=== PATIENT | male | born 1940 | race Caucasian/White ===

== ENCOUNTER 2023-12-01 12:46 | Inpatient (IN) | payer MEDICARE, SELFPAY ==
[2023-12-01] VITALS (11 sets, daily range): BP systolic 131–203; BP diastolic 62–82; BMI 28.1; BMI 27.5
[2023-12-01 07:21] LABS: % Basophils 0.4 % (0-2); % Eosinophils 2.3 % (0-6); % Immature Granulocytes 0.6 % (0-0.5); % Lymphocytes 13.3 % (20.5-51.1); % Monocytes 1.1 % (1.7-9.3); % Neutrophils 82.3 % (42.2-75.2); Absolute Eosinophils 0.3 10^3/uL (0-0.7); Absolute Immature Granulocytes 0.1 10^3/uL (0-0.05); Absolute Lymphocytes 1.4 10^3/uL (1.2-3.4); Absolute Monocytes 0.1 10^3/uL (0.1-0.6); Absolute Neutrophils 8.9 10^3/uL (1.4-6.5); Hematocrit 45.4 % (39.0-52.0); Hemoglobin 15.1 g/dL (13.0-18.0); Mean Corp Hgb Conc. 33.3 g/dL (33.0-37.0); Mean Corpuscular Hgb 30.9 pg (27.0-31.0); Mean Platelet Volume 11.4 fL (7.4-10.4); Nucleated Red Blood Cells % 0 % (-); Platelet Count 179 10^3/uL (130-400); Red Blood Cell Count 4.88 10^6/uL (4.70-6.10); Red Cell Dist. Width 13.5 % (11.5-14.5); White Blood Cell Count 10.8 10^3/uL (4.8-10.8)
[2023-12-01 07:28] LABS: ALT (SGPT) 71 U/L (0-50); AST (SGOT) 118 U/L (17-59); Albumin 4.7 g/dl (3.5-5.0); Alkaline Phosphatase 91 U/L (38-126); Blood Urea Nitrogen 27 mg/dl (9-20); Calcium 9.1 mg/dl (8.4-10.2); Carbon Dioxide 30 mmol/L (22-30); Chloride 104 mmol/L (98-107); Estimated Creatinine Clearance 53 ml/min; Glucose 133 mg/dl (70-99); Potassium 4.2 mmol/L (3.5-5.1); Sodium 143 mmol/L (135-145); Total Bilirubin 1.7 mg/dl (0.2-1.3); Total Protein 7.9 g/dl (6.3-8.2); eGFR > 60.00
--- NOTE | 2023-12-01 07:56 | ED.GENMED ---
History of Present Illness
General
Chief Complaint: Abdominal Pain
Source: patient
Exam Limitations: none
Time Seen by Provider: 12/01/23 07:03
Nursing documentation reviewed up to this point in time: agreed with
Travel History
Have you had any contact with someone who has COVID-19?: No
Do you have any symptoms of coronavirus? Fever > 100 degrees, chills, cough, shortness of breath, sore throat, loss of taste or smell, muscle aches, or headache?: No
History of Present Illness
History of Present Illness:
83-year-old male past medical history of heart disease GERD diabetes presenting to the emergency department today with concerns of epigastric and upper quadrant Jabari pain over the last few hours. Denies any surgeries to his gallbladder in the
past was given prior to arrival via EMS. Associated nausea no vomiting no change in bowel movements.
Past History
Past History
ED Past Medical History: CAD, GERD, HTN, Hypercholesterolemia, Psychiatric and Other (arely)
ED Past Surgical History: Cardiac (angioplasty) and Tonsilectomy
Social History
Tobacco: Former smoker
Alcohol: None
Drug: None
Personal:
Living: with family
Review of Systems
Review of Systems
Allergies reviewed?: Yes
All Other Systems: ROS reviewed and negative except as documented in HPI and ROS
Phy Exam
Physical Exam
Physical Exam:
GENERAL: Alert , in no apparent distress
EYE: pupils equal and reactive
NECK: Supple, no significant adenopathy.
ENT: o/p clr, mmm.
CARDIAC: Regular rate and rhythm .
LUNGS: Clear breath sounds bilaterally, no acute respiratory distress, no wheezes/rales/rhonchi
ABDOMEN: Right upper quadrant Jabari pain positive Skinner's epigastric pain otherwise soft benign abdomen.
NEUROLOGICAL: Alert and oriented, no focal neuro deficits
SKIN: Warm and dry, skin intact.
MUSCULOSKELETAL: No edema, well perfused.
PSYCH: Normal and appropriate interaction.
Course
Orders/Labs/Results
Orders:
Orders
12/01/23 06:59
ECG [Electrocardiogram (*1)] Urgent
Reason for Study: Chest Pain
EKG- Treatment ONCE
12/01/23 07:05
Complete Blood Count/With Diff Urgent
Comprehensive Metabolic Panel Urgent
Lipase Urgent
12/01/23 07:35
US Abdomen Complete/Upper Urgent
Comment:
Reason For Exam: ruq pain bili up
12/01/23 08:23
0.9% Sodium Chloride 500 ml [Nss] 500 ml IV BOLUS
Morphine Sulfate 4 mg IV NOW STA
12/01/23 09:46
Urinalysis Reflex To Culture Urgent
Date Specimen was Collected: 12/01/23
Time Specimen was Collected: 09:41
Abnormal Lab Results
12/01/23
07:05
MPV 11.4 H fL
(7.4-10.4)
Abs Immat Gran (auto) 0.1 H 10^3/uL
(0-0.05)
Absolute Neuts (auto) 8.9 H 10^3/uL
(1.4-6.5)
Immature Gran % 0.6 H %
(0-0.5)
Neutrophils % 82.3 H %
(42.2-75.2)
Lymphocytes % 13.3 L %
(20.5-51.1)
Monocytes % 1.1 L %
(1.7-9.3)
BUN 27 H mg/dl
(9-20)
Glucose 133 H mg/dl
(70-99)
Total Bilirubin 1.7 H mg/dl
(0.2-1.3)
AST 118 H U/L
(17-59)
ALT 71 H U/L
(0-50)
Lipase > 4000 H* U/L
(23-300)
12/01/23 07:05
12/01/23 07:05
Vital Signs
Initial and Last Documented VS:
Initial Vital Signs
Pulse Resp Pulse Ox
53 18 96
12/01/23 06:58 12/01/23 06:58 12/01/23 06:58
Last Documented Vital Signs
Temp Pulse Resp BP Pulse Ox
98.4 F 63 24 142/62 97
12/01/23 08:33 12/01/23 10:00 12/01/23 10:00 12/01/23 10:00 12/01/23 10:00
MDM/Problems Addressed
MDM/Problems Addressed:
83-year-old male presenting to the emergency department today with concerns of right upper quadrant abdominal pain abruptly starting this morning. Associated nausea no vomiting no chest pain. Significant tense palpation to the right upper quadrant
and epigastric region. Lipase significantly elevated additionally had elevated bilirubin AST and ALT ultrasound showing distention of the gallbladder and dilatation of the common bile duct. Concerning for potential gallstone pancreatitis or distal
biliary duct obstruction plan to admit with expectation for consultation with GI and general surgery.
*Critical Care Note
Total Time (30-74mins, 75-104mins- exclusive of procedures): Not Applicable
ED Attending Note
-
Portions of this chart may have been created with voice recognition software.� Occasional wrong word or��sound alike� substitutions may have occurred due to the inherent limitations of voice recognition software.
Discharge Plan
Departure
Patient Disposition: Admit
Date of Disposition: 12/01/23
Time of Disposition: 10:17
Admit to: Med/Surg
Admit to doctor: Marissa
Presentation/result/management discussed w/ accepting MD/DO: Hospitalist
Patient with high blood pressure during this ER visit?: No
Condition: Good
Covid-19: Not Applicable
Discharge Problem:
Acute pancreatitis, Acute cholecystitis
Prescriptions:
No Action
duloxetine 20 MG capsule,delayed release(DR/EC)
40 mg PO DAILY
metformin 500 MG tablet
500 mg PO BID
felodipine 10 MG tablet extended release 24 hr
10 mg PO DAILY Qty: 1 0RF
atorvastatin [Lipitor] 80 mg Tablet
80 mg PO HS
aspirin 81 mg Tablet,Delayed Release (Dr/Ec)
81 mg PO QPM
docusate sodium 100 MG capsule
300 mg PO DAILY
pantoprazole 40 mg Tablet,Delayed Release (Dr/Ec)
40 mg PO BID Qty: 60 0RF
sennosides [senna] 8.6 mg Tablet
8.6 mg PO DAILY
Theragen Tablet
1 tab PO DAILY
losartan 25 mg Tablet
25 mg PO DAILY
aspirin 81 mg Tablet,Chewable
324 mg PO DAILYPRN PRN (Reason: chest pains)
alum-mag hydroxide-simeth [Mylanta] 200-200-20 mg/5 mL Suspension
5 ml PO DAILYPRN PRN (Reason: gerd)
calcium citrate-vitamin D3 [Citracal-D3 Petites] 200 mg-6.25 mcg (250 unit) Tablet
1 tab PO DAILY
Referrals:
Sen Hines MD [Family Provider] -
Interventions
Interventions:
*Risk Screen - Suicide Last Done: 12/01/23 07:07
*General Assessment Last Done: 12/01/23 07:07
*Neglect/Abuse Screening Last Done: 12/01/23 07:07
*ED COVID-19 Vaccine History Last Done: 12/01/23 07:07
SS-Rrtkkj-Rubenisrmv Assessment Last Done: 12/01/23 07:30
Discharge Date and Time
Print Language: ALBANIAN
[2023-12-01 08:11] LABS: Lipase > 4000 U/L (23-300)
[2023-12-01] MEDS: MORPHINE SULFATE 4 MG IV (08:38)
[2023-12-01] MEDS: NSS 500 IV (08:38)
[2023-12-01 10:12] LABS: Urine Albumin Trace (Neg - Trace); Urine Bilirubin Negative (Negative); Urine Character Clear (Clear); Urine Color Yellow; Urine Glucose Negative (Negative); Urine Ketone Negative (Negative); Urine Leukocyte Negative (Negative); Urine Nitrite Negative (Negative); Urine Occult Blood Negative (Negative); Urine Specific Gravity 1.015 (<1.030); Urine Urobilinogen Negative (Neg - 1+)
--- NOTE | 2023-12-01 14:49 | CON.GS ---
Medical History
-
Chief Complaint: Abdominal pain
History of Present Illness:
Patient is an 83 yo M with a PMH of GERD, HTN, HLD, CAD s/p PCI with angioplasty, NIDDM, and Gilbert's disease who presents with < 24 hours of epigastric and RUQ abdominal pain. Mr. Roberts states that his pain began acutely this morning. He
describes severe epigastric and RUQ abdominal pain. Mild improvement since presentation to the ED with pain medication. No fevers or chills. No nausea or vomiting. Denies any jaundice, pale stools, or tea colored urine. He denies any prior
attacks of either similar pain or postprandial RUQ abdominal discomfort. Family history notable for a brother with pancreatitis.
Past Medical History
Past Medical History: GERD, HTN, Hypercholesterolemia, NIDDM and Other (Gilbert's disease)
Past Surgical History: Cardiac (PCI angioplasty x2)
Social History
Tobacco: Non-Smoker
Alcohol: Occasional (Wine weekly)
Drug: None
Personal:
Living: With Family
Employment: Retired
Family History
Family History: Other (Brother pancreatitis)
Allergies / Home Medications
Allergy/AdvReac Type Severity Reaction Status Date / Time
Penicillins Allergy Rash as a Verified 12/01/23 10:29
child
�Medication �Instructions �Recorded �Confirmed �Type
duloxetine 20 mg capsule,delayed 40 mg PO DAILY Pain 07/29/21 12/01/23 History
release
metformin 500 mg tablet 500 mg PO BID Diabetes 08/02/21 12/01/23 History
aspirin 81 mg tablet,delayed 81 mg PO QPM Blood clot 11/15/22 12/01/23 History
release prevention/tx
atorvastatin 80 mg tablet (Lipitor) 80 mg PO HS High cholesterol 11/15/22 12/01/23 History
docusate sodium 100 mg capsule 300 mg PO DAILY Constipation 11/15/22 12/01/23 History
aluminum-mag hydroxide-simethicone 5 ml PO DAILYPRN PRN gerd 12/01/23 12/01/23 History
200 mg-200 mg-20 mg/5 mL oral susp
aspirin 81 mg chewable tablet 324 mg PO DAILYPRN PRN chest pains 12/01/23 12/01/23 History
calcium citrate 200 mg 1 tab PO DAILY Supplement 12/01/23 12/01/23 History
calcium-vitamin D3 6.25 mcg (250
unit) tablet (Citracal-D3 Petites)
felodipine 10 mg tablet,extended 10 mg PO DAILY Blood Pressure 12/01/23 12/01/23 History
release 24 hr
losartan 25 mg tablet 25 mg PO DAILY Blood Pressure 12/01/23 12/01/23 History
pantoprazole 40 mg tablet,delayed 40 mg PO BID Gastrointestinal Issue 12/01/23 12/01/23 History
release
sennosides 8.6 mg tablet (senna) 8.6 mg PO DAILY Constipation 12/01/23 12/01/23 History
therapeutic multivitamin 1 tab PO DAILY Supplement 12/01/23 12/01/23 History
Review of Systems
-
A 10 point review of systems was completed, and was negative except as per HPI.
Physical Exam
Vital Signs
Temp Pulse Resp BP Pulse Ox
98.4 F 59 22 155/80 95
12/01/23 08:33 12/01/23 14:30 12/01/23 14:30 12/01/23 14:00 12/01/23 14:30
11/30/23 12/01/23 12/02/23
06:59 06:59 06:59
Actual Weight 86.3 kg
Body Mass Index (BMI) 28.1
Lab Results
12/01/23 07:05
12/01/23 07:05
WBC 10.8 10^3/uL (4.8-10.8) 12/01/23 07:05
Hgb 15.1 g/dL (13.0-18.0) 12/01/23 07:05
Hct 45.4 % (39.0-52.0) 12/01/23 07:05
Plt Count 179 10^3/uL (130-400) 12/01/23 07:05
Abs Immat Gran (auto) 0.1 10^3/uL (0-0.05) H 12/01/23 07:05
Neutrophils % 82.3 % (42.2-75.2) H 12/01/23 07:05
Physical Exam
General: Well Developed, Well Nourished and No Apparent Distress
HEENT: Normocephalic and Anicteric
Respiratory: Non Labored Respirations
Cardiac: Regular Rhythm
GI: Soft, Non Distended, Tender (Epigastrium and RUQ) and Other (Nonperitoneal (no rebound or guarding))
Musculoskeletal: No Edema
Skin: Warm and Dry
Neuro: Nonfocal/Grossly Intact
Data Reviewed
-
Ultrasound: Image Personally Visualized and interpreted and Report Reviewed by me
Labs: Labs Reviewed by me
Assessment / Plan
-
Patient is an 83 yo M pancreatitis likely of gallstone in origin
The natural history of hepatobiliary and stone disease was discussed. Anatomy was reviewed. Role of cholecystectomy in preventing future episodes of pancreatitis was discussed; we discussed that this is typically performed during the same
hospitalization once his symptoms/pancreatitis has resolved. Continued pain currently, not ready for operative intervention at this time. GI consult noted. Medical management per GI. All questions answered.
-- Medical management of pancreatitis (limit oral intake, pain medications, IVF)
-- GI consult noted, decision on MRCP and diet
-- Timing of cholecystectomy pending clinical recovery from pancreatitis
-- Will continue to follow
--- NOTE | 2023-12-01 15:46 | CON.GI ---
Addendum entered and electronically signed by Rukhsana Neff MD 12/01/23 17:46:
I saw and examined the patient.
The CHANGE MANAGEMENT EXPERT's note was reviewed and I agree with the note.
Comment: This is a 83-year-old male who presented with acute onset of right upper quadrant pain today morning with diaphoresis, no fever/chills, no nausea or vomiting he does have a prior history of peptic ulcer disease and Snell's esophagus. on
admission ultrasound showed a distended gallbladder with probable cholecystitis and dilated duct with no obvious stone and also had abnormal LFTs with lipase greater than 4000. He also had an MRI last year to follow-up for renal cyst and he was
noted to have pancreatic cyst thought to be related to possible IPMN or pancreatic pseudocyst but he has no prior history of pancreatitis and no prior history of biliary colic.
Assessment and plan 1. Acute pancreatitis first episode most likely gallstone pancreatitis with evidence of dilated CBD noted on ultrasound and abn LFTS, no obvious stones noted but possible acute cholecystitis noted will start on antibiotics for
this. Will schedule for MRI with MRCP and if he does have evidence of CBD stone will need ERCP, timing of cholecystectomy per surgery. TG normal, no new meds.
2. He does have a history of renal cysts and also pancreatic cysts noted on prior MRI in 2022 thought to be related to possible IPMN with no worrisome features will follow-up on repeat MRI. May need EUS based on this.
Original Note:
Consultation
-
Date/Time Consultation Requested: 12/01/23
Date/Time Consultation Performed: 12/01/23 @ 15:45
Requesting Provider: Dr. Ann
Performing Provider: REBEKAH Hay; Dr. Neff
Reason for Consultation: gallstone pancreatitis
Medical History
Chief Complaint / HPI
Chief Complaint: abdominal pain
History of Present Illness:
The pt is an 83 yo male with a PMH significant for significant for CAD With prior angioplasty, GERD, hypertension, DM2, hyperlipidemia, Gilbert's, who presented to the emergency room, with complaints of abdominal pain. We are being asked to
evaluate for gallstone pancreatitis. The patient reports that this morning he woke up with mid epigastric discomfort. He does have a history of a bleeding ulcer and felt this may have been similar to that episode. His did give him Mylanta but
he did not have any improvement in his symptoms. His pain progressively worsened radiating to the right upper quadrant. His notes that he was doubled over due to his pain and also had significant diaphoresis warranting ER evaluation. He notes
he did have a steak the afternoon before this onset otherwise he eats relatively healthy. The patient denies any fevers or chills. He denies any associated nausea or vomiting. He denies any prior episodes of pancreatitis or known gallbladder
disease. He otherwise denies any chest pain, shortness of breath, unintentional weight loss, change in bowel habits, melena, hematochezia, hematemesis, dysphagia, or other pertinent GI complaints. He denies any new medications, recent antibiotics,
or significant alcohol use. He does take Metformin but this is not new. He notes a history of high cholesterol which is well-controlled with statin therapy. He does take aspirin 81 mg daily otherwise denies use of other NSAIDs or blood thinners.
He underwent endoscopy in November 2022 where he was found to have a nonbleeding gastric ulcer. He underwent repeat endoscopy in January which showed resolution. Esophageal biopsies did show Snell's esophagus. Last colonoscopy less than 10 years ago
reportedly was normal. Routine labs on admission showed a total bilirubin 1.7, AST 118, ALT 71, lipase greater than 4000, BUN 27, creatinine 1.1. Abdominal ultrasound imaging showed a distended gallbladder with thickening of the gallbladder to 5.5
mm suggesting possible cholecystitis with no obvious biliary calculi however there is dilation of the common bile duct to 9 mm raising concern for distal biliary obstruction. Other findings as noted below. General surgery was asked to evaluate the
patient as well for possible cholecystectomy.
Past Medical History
Past Medical History: CAD, GERD (Gastric ulcer secondary to NSAIDs ), HTN, Hypercholesterolemia, NIDDM and Other (Gilbert's, pancreatic cyst, Snell's esophagus, CKDIII)
Past Surgical History: Orthopedic (Bilateral hip replacement)
Social History
Tobacco: Former Smoker (quit remotely)
Alcohol: Occasional (1 glass of wine weekly)
Drug: None
Personal:
Living: With Family
Family History
Family History: Reviewed & Not Pertinent
Allergies / Home Medications
Allergy/AdvReac Type Severity Reaction Status Date / Time
Penicillins Allergy Rash as a Verified 12/01/23 10:29
child
�Medication �Instructions �Recorded
duloxetine 20 mg capsule,delayed 40 mg PO DAILY Pain 07/29/21
release
metformin 500 mg tablet 500 mg PO BID Diabetes 08/02/21
aspirin 81 mg tablet,delayed 81 mg PO QPM Blood clot 11/15/22
release prevention/tx
atorvastatin 80 mg tablet (Lipitor) 80 mg PO HS High cholesterol 11/15/22
docusate sodium 100 mg capsule 300 mg PO DAILY Constipation 11/15/22
aluminum-mag hydroxide-simethicone 5 ml PO DAILYPRN PRN gerd 12/01/23
200 mg-200 mg-20 mg/5 mL oral susp
aspirin 81 mg chewable tablet 324 mg PO DAILYPRN PRN chest pains 12/01/23
calcium citrate 200 mg 1 tab PO DAILY Supplement 12/01/23
calcium-vitamin D3 6.25 mcg (250
unit) tablet (Citracal-D3 Petites)
felodipine 10 mg tablet,extended 10 mg PO DAILY Blood Pressure 12/01/23
release 24 hr
losartan 25 mg tablet 25 mg PO DAILY Blood Pressure 12/01/23
pantoprazole 40 mg tablet,delayed 40 mg PO BID Gastrointestinal Issue 12/01/23
release
sennosides 8.6 mg tablet (senna) 8.6 mg PO DAILY Constipation 12/01/23
therapeutic multivitamin 1 tab PO DAILY Supplement 12/01/23
Review of Systems
-
History Source: Patient and Family
Constitutional: Reports Sleep Disturbance and Other (sweats)
EENT: Reports No Symptoms
Respiratory: Reports No Symptoms
Cardiac: Reports No Symptoms
Abdomen/GI: Reports Abdominal Pain
: Reports No Symptoms
Musculoskeletal: Reports No Symptoms
Skin: Reports No Symptoms
Neurological: Reports No Symptoms
Vital Signs
Temp Pulse Resp BP Pulse Ox
99.4 F 59 15 154/76 95
12/01/23 15:08 12/01/23 15:00 12/01/23 14:45 12/01/23 15:00 12/01/23 15:00
Physical Exam
Exam
General: Well Developed, Well Nourished and No Apparent Distress
HEENT: Normocephalic, Anicteric and Atraumatic
Respiratory: Clear
Cardiac: S1/S2 and Regular Rhythm
Breast: N/A
GI: Soft, Normal Bowel Sounds, Tender (diffusely tender with guarding RUQ, RLQ) and Distended (mildly distended)
Rectal: Deferred by Provider
Musculoskeletal: No Edema
Skin: Warm and Dry
Neuro: Awake, Alert and Oriented
Psych: Calm
Results
WBC 10.8 10^3/uL (4.8-10.8) 12/01/23 07:05
Hgb 15.1 g/dL (13.0-18.0) 12/01/23 07:05
Hct 45.4 % (39.0-52.0) 12/01/23 07:05
MCV 93.0 fL (80.0-94.0) 12/01/23 07:05
Plt Count 179 10^3/uL (130-400) 12/01/23 07:05
Absolute Neuts (auto) 8.9 10^3/uL (1.4-6.5) H 12/01/23 07:05
Sodium 143 mmol/L (135-145) 12/01/23 07:05
Potassium 4.2 mmol/L (3.5-5.1) 12/01/23 07:05
Chloride 104 mmol/L (98-107) 12/01/23 07:05
Carbon Dioxide 30 mmol/L (22-30) 12/01/23 07:05
BUN 27 mg/dl (9-20) H 12/01/23 07:05
Creatinine 1.1 mg/dL (0.7-1.3) 12/01/23 07:05
Calcium 9.1 mg/dl (8.4-10.2) 12/01/23 07:05
Total Bilirubin 1.7 mg/dl (0.2-1.3) H 12/01/23 07:05
AST 118 U/L (17-59) H 12/01/23 07:05
ALT 71 U/L (0-50) H 12/01/23 07:05
Alkaline Phosphatase 91 U/L (38-126) 12/01/23 07:05
Lipase > 4000 U/L (23-300) H* 12/01/23 07:05
Diagnostic Image Results:
12/01/23 US abdomen: IMPRESSION:
'1).The gallbladder is distended and despite this distention, there is thickening of the gallbladder wall to 5.5 mm suggesting possible cholecystitis.
No biliary calculi are demonstrated
There is, however, dilatation of the common bile duct to 9 mm raising concern for distal biliary obstruction
The pancreas is not well visualized because of overlying bowel gas.
MR with MRCP may be useful for further evaluation
2). There are right-sided renal cysts measuring up to 6 cm'
Prior GI Procedures:
EGD: 11/17/2022 EGD, Dr. Canada: Z-line irregular, biopsies consistent with Snell's esophagus without dysplasia, nonbleeding gastric ulcer with no stigmata of bleeding with biopsies negative for H. pylori, normal examined duodenum.
01/07/2023 EGD, Dr. Canada: Esophageal mucosal changes secondary to established Snlel's disease, biopsies consistent with Snell's without dysplasia, erythematous mucosa in the antrum, negative biopsies. No present.
Colonoscopy: colonoscopy reportedly normal less than 10 years ago
Assessment / Plan
-
The pt is an 83 yo male with a PMH significant for significant for CAD with prior angioplasty, GERD, hypertension, DM2, hyperlipidemia, Gilbert's, GI bleed with gastric ulcer 2/2 NSAID's, who presented to the emergency room, with complaints of
abdominal pain. We are being asked to evaluate for gallstone pancreatitis. He notes acute onset of abdominal pain this morning, with no prior similar episodes in the past. He was found to have an elevated lipase greater than 4000 with abnormal
LFTs. Ultrasound imaging showing suspected cholecystitis with CBD dilation concerning for possible choledocholithiasis. He denies significant alcohol use, drinking only 1 glass of wine weekly. He denies any new medications. He was made n.p.o.,
admitted for further evaluation for general surgery and GI evaluation. IV fluids were initiated in the emergency room.
Problem list:
-Abdominal pain
-pancreatitis, 1st episode, lipase >4000
-abnormal LFT's
-US imaging showing possibly cholecystitis, CBD dilation
-hx Gilbert's
-hx GERD with PUD
-Snell's esophagus
Other pertinent medical hx:
-HTN
-HLD
-DM2
Recommendations:
-Etiology of abdominal pain secondary to pancreatitis which is suspected to be related to biliary etiology given CBD dilation on ultrasound imaging and concern for cholecystitis.
-Recommend MRI with MRCP for further evaluation. If positive for choledocholithiasis he will need ERCP.
-General surgery is following for eventual cholecystectomy
-Continue IV fluids, currently at 150 mL/hr
-Trend LFT's
-Check triglycerides
-PRN analgesics
-Okay for sips of clears until pain is improving
-He should be n.p.o. after midnight for MRI and possible GI procedures if need ERCP
-Continue PPI daily with history of Snell's esophagus and peptic ulcer disease
-Avoid NSAIDs
-Further recommendations pending above
Data Reviewed
-
Ultrasound: Report Reviewed by me and Discussed with Physician
-
-
Thank you for consultation and allowing me to participate in the patient's care. Please call the chemist instrumentation GI physician during the after hours with any questions or concerns.
[2023-12-01] MEDS: MORPHINE SULFATE 2 MG IV ×2 (15:47→21:08)
[2023-12-01] MEDS: NSS 1000 IV (15:47)
--- NOTE | 2023-12-01 17:10 | W.PN.HOSP.TC ---
Today's Communication/Plan
-
follow labs
MRCP
IVF
Assessment / Plan
Assessment / Plan
Acute gallstone pancreatitis
Lipase >4000
Bili 1.7
AST 118
CAD. s/p PTCA, no stent ( believes in 2019)
pt known to [facility]
GERD stable
HLD
P: IVF
analgesia
GI and Surgical consults
see dictated note
full code
Anticipated Discharge: > 48 hours
Subjective/Interval History
-
Date of Service: December 01, 2023
Sudden onset of abdominal pain this morning shortly after awakening
Objective Data
-
Labs:
Laboratory Results
12/01/23
07:05
WBC 10.8
Hgb 15.1
Hct 45.4
Plt Count 179
Sodium 143
Potassium 4.2
Chloride 104
Carbon Dioxide 30
BUN 27 H
Creatinine 1.1
Glucose 133 H
Calcium 9.1
Total Bilirubin 1.7 H
AST 118 H
ALT 71 H
Alkaline Phosphatase 91
Vital Signs:
Vital Signs
Temp Pulse Resp BP Pulse Ox
100.5 F H 66 16 148/77 94
12/01/23 15:15 12/01/23 15:15 12/01/23 15:15 12/01/23 15:15 12/01/23 15:15
Review of Systems
-
History Source: Patient and Family ( at bedside)
Constitutional: Reports Fever (Tmax 100.5)
Respiratory: Reports No Symptoms
Cardiac: Reports No Symptoms; Denies Chest Pain
Abdomen/GI: Reports Abdominal Pain; Denies Nausea or Vomiting
Genitourinary: Reports No Symptoms; Denies Dysuria
Physical Exam
-
General: Well Developed, Well Nourished and No Apparent Distress
HEENT: Normocephalic, Atraumatic and Moist Mucous Membranes
Respiratory: Clear to Auscultation; Negative Wheezes, Rales or Rhonchi
Cardiac: Regular Rhythm
GI: Soft and Tender; Negative Normal Bowel Sounds (decreased)
Musculoskeletal: No Clubbing, No Cyanosis and No Edema
Neuro: Awake, Alert and Oriented
[2023-12-01 17:19] LABS: Triglycerides 86 mg/dl (10-149)
--- NOTE | 2023-12-01 17:31 | PTCARENOTE ---
Received patient from ED via stretcher. AAOx3, ambulated with assistance to bed. Assessed and oriented to room. Call rashid in close reach.
[2023-12-01 17:51] LABS: Glucose - Point of Care 103 mg/dl (70-99)
[2023-12-01] MEDS: LOVENOX 40 MG SC (17:51)
[2023-12-01] MEDS: PROTONIX IV 40 MG IV ×2 (17:51→21:02)
[2023-12-01] MEDS: NSS (PRESERVATIVE FREE) 10 ML IV (17:55)
[2023-12-01] MEDS: LEVAQUIN 100 IV (18:34)
[2023-12-01] MEDS: FLAGYL 500 MG 100 IV (21:01)
[2023-12-01 23:56] LABS: Glucose - Point of Care 94 mg/dl (70-99)
[2023-12-02] VITALS (8 sets, daily range): BP systolic 136–153; BP diastolic 65–80
[2023-12-02] MEDS: NSS 1000 IV ×4 (00:42→20:13)
[2023-12-02] MEDS: FLAGYL 500 MG 100 IV ×3 (04:14→20:13)
[2023-12-02] MEDS: OCEAN, SALINE MIST 1 SPRAYS NASAL (05:01)
[2023-12-02 06:06] LABS: % Basophils 0.3 % (0-2); % Eosinophils 0.8 % (0-6); % Immature Granulocytes 0.4 % (0-0.5); % Lymphocytes 6.6 % (20.5-51.1); % Neutrophils 82.9 % (42.2-75.2); Absolute Eosinophils 0.1 10^3/uL (0-0.7); Absolute Immature Granulocytes 0.1 10^3/uL (0-0.05); Absolute Lymphocytes 0.8 10^3/uL (1.2-3.4); Absolute Neutrophils 9.5 10^3/uL (1.4-6.5); Hematocrit 35.9 % (39.0-52.0); Hemoglobin 12.3 g/dL (13.0-18.0); Mean Corp Hgb Conc. 34.3 g/dL (33.0-37.0); Mean Corpuscular Hgb 30.8 pg (27.0-31.0); Mean Corpuscular Volume 89.8 fL (80.0-94.0); Mean Platelet Volume 11.2 fL (7.4-10.4); Nucleated Red Blood Cells % 0 % (-); Platelet Count 142 10^3/uL (130-400); Red Cell Dist. Width 13.9 % (11.5-14.5); White Blood Cell Count 11.4 10^3/uL (4.8-10.8)
[2023-12-02 06:25] LABS: Glucose - Point of Care 96 mg/dl (70-99)
[2023-12-02 06:33] LABS: ALT (SGPT) 69 U/L (0-50); AST (SGOT) 69 U/L (17-59); Albumin 3.2 g/dl (3.5-5.0); Alkaline Phosphatase 79 U/L (38-126); Blood Urea Nitrogen 23 mg/dl (9-20); Calcium 7.9 mg/dl (8.4-10.2); Carbon Dioxide 25 mmol/L (22-30); Chloride 107 mmol/L (98-107); Estimated Creatinine Clearance 58 ml/min; Glucose 96 mg/dl (70-99); Potassium 3.8 mmol/L (3.5-5.1); Sodium 139 mmol/L (135-145); Total Bilirubin 2.9 mg/dl (0.2-1.3); Total Protein 5.7 g/dl (6.3-8.2); eGFR > 60.00
[2023-12-02 06:43] LABS: Lipase 1926 U/L (23-300)
[2023-12-02] MEDS: NOVOLOG FLEXPEN-LOW RESISTANCE SC ×3 (07:58→17:50)
[2023-12-02] MEDS: NSS (PRESERVATIVE FREE) 10 ML IV ×2 (08:32→20:13)
[2023-12-02] MEDS: PLENDIL EXTENDED RELEASE 10 MG PO (08:32)
[2023-12-02] MEDS: PROTONIX IV 40 MG IV ×2 (08:32→20:14)
[2023-12-02] MEDS: COZAAR 25 MG PO (08:32)
[2023-12-02 09:34] LABS: Glycohemoglobin (HgbA1c) 6.8 % (4.0-5.6)
--- NOTE | 2023-12-02 09:59 | W.PN.GI.CBS2 ---
Today's Communication / Plan
-
MRI with MRCP today and ERCP if has CBD stone
Assessment / Plan
-
The pt is an 83 yo male with a PMH significant for significant for CAD with prior angioplasty, GERD, hypertension, DM2, hyperlipidemia, Gilbert's, GI bleed with gastric ulcer 2/2 NSAID's, who presented to the emergency room, with complaints of
abdominal pain. We are being asked to evaluate for gallstone pancreatitis. He notes acute onset of abdominal pain this morning, with no prior similar episodes in the past. He was found to have an elevated lipase greater than 4000 with abnormal
LFTs. Ultrasound imaging showing suspected cholecystitis with CBD dilation concerning for possible choledocholithiasis. He denies significant alcohol use, drinking only 1 glass of wine weekly. He denies any new medications. He was made n.p.o.,
admitted for further evaluation for general surgery and GI evaluation. IV fluids were initiated in the emergency room.
Problem list:
-Abdominal pain
-pancreatitis, 1st episode, lipase >4000
-abnormal LFT's
-US imaging showing possibly cholecystitis, CBD dilation
-hx Gilbert's
-hx GERD with PUD
-Snell's esophagus
Other pertinent medical hx:
-HTN
-HLD
-DM2
Recommendations:
-Etiology of abdominal pain secondary to pancreatitis which is suspected to be related to biliary etiology given CBD dilation on ultrasound imaging and concern for cholecystitis.
-Recommend MRI with MRCP for further evaluation having it today. If positive for choledocholithiasis he will need ERCP.
-General surgery is following for eventual cholecystectomy
-Continue IV fluids, currently at 150 mL/hr
-Trend LFT's
-TG normal
-Continue PPI daily with history of Snell's esophagus and peptic ulcer disease
-Avoid NSAIDs
-He does have a history of renal cysts and also pancreatic cysts noted on prior MRI in 2022 thought to be related to possible IPMN with no worrisome features will follow-up on repeat MRI. May need EUS based on this.
-Continue antibiotics for possible acute cholecystitis seen on imaging
Subjective
Subjective
Date of Service: December 02, 2023
Pain is improved, afebrile today, no nausea or vomiting
Objective
Data Reviewed
Laboratory Data:
Laboratory Results
12/02/23 05:41
12/02/23 05:41
Laboratory Results
Total Bilirubin 2.9 mg/dl (0.2-1.3) H D 12/02/23 05:41
AST 69 U/L (17-59) H 12/02/23 05:41
ALT 69 U/L (0-50) H 12/02/23 05:41
Alkaline Phosphatase 79 U/L (38-126) 12/02/23 05:41
Lipase 1926 U/L (23-300) H* 12/02/23 05:41
Vital Signs and I&O:
Vital Signs
Temp Pulse Resp BP Pulse Ox
98.5 F 50 18 150/73 96
12/02/23 07:25 12/02/23 07:25 12/02/23 07:25 12/02/23 07:25 12/02/23 07:25
I&O
12/01/23 12/02/23 12/03/23
06:59 06:59 06:59
Intake Total 120 / 120
Balance 120 / 120
Physical Exam
Physical Exam
Cardiology: Normal Sinus Rhythm
Pulmonary: Clear
GI: Soft, Non Distended, Tender (Mild epigastric and right upper quadrant tenderness) and Normal Bowel Sounds
[2023-12-02 12:56] LABS: Glucose - Point of Care 93 mg/dl (70-99)
--- NOTE | 2023-12-02 15:25 | W.PN.GS2 ---
Today's Communication / Plan
-
Cont medical mgmt pancreatitis
GS following
Assessment / Plan
-
Patient is an 83 yo M pancreatitis likely of gallstone in origin
The natural history of hepatobiliary and stone disease was discussed. Anatomy was reviewed. Role of cholecystectomy in preventing future episodes of pancreatitis was discussed; we discussed that this is typically performed during the same
hospitalization once his symptoms/pancreatitis has resolved.
Continued pain currently, not ready for operative intervention at this time.
Medical management per GI.
US without obvious stones, GBWT 5.5mm, CBD 9mm
MRCP without obvious ductal stones nor cholelithiasis, CBD again appears mildly dilated
Lipase terending down
Bili trending up, reported hx of arely, supported by historical labs
-- Medical management of pancreatitis (limit oral intake, pain medications, IVF)
-- Timing of cholecystectomy pending clinical recovery from pancreatitis
-- Trend labs, LFTs ordered tomorrow for fractionation
-- If Bili continues to rise and has a significant direct component, rec EUS to evaluate the ducts, ampulla, panc head
-- If bili trends down, consider HIDA to confirm cystic duct patency
-- Serial abd exams
-- Will continue to follow
Subjective Data
-
Date of Service: December 02, 2023
100.5F Tmax, abd pain improving, denies n/v
Objective Data
-
Intake and Output
12/01/23 12/02/23 12/03/23
06:59 06:59 06:59
Intake Total 120 / 120
Balance 120 / 120
Intake:
Oral fluids 120 / 120
Other:
Number of approximated MODERATE 1
amounts of urine
Number of approximated LARGE 3
amounts of urine
Vital Signs
Temp Pulse Resp BP Pulse Ox
99.4 F 55 18 150/74 95
12/02/23 15:09 12/02/23 15:09 12/02/23 15:09 12/02/23 15:09 12/02/23 15:09
Lab Results
12/02/23 05:41
12/02/23 05:41
Calcium 7.9 mg/dl (8.4-10.2) L 12/02/23 05:41
Total Bilirubin 2.9 mg/dl (0.2-1.3) H D 12/02/23 05:41
AST 69 U/L (17-59) H 12/02/23 05:41
ALT 69 U/L (0-50) H 12/02/23 05:41
Alkaline Phosphatase 79 U/L (38-126) 12/02/23 05:41
Total Protein 5.7 g/dl (6.3-8.2) L D 12/02/23 05:41
Albumin 3.2 g/dl (3.5-5.0) L D 12/02/23 05:41
Physical Exam
-
Gen: NAD
Abd: soft, moderate ttp to epigastrium
[2023-12-02] MEDS: LEVAQUIN 100 IV (17:41)
[2023-12-02] MEDS: LOVENOX 40 MG SC (17:41)
[2023-12-02 17:44] LABS: Direct Bilirubin 0.5 mg/dl (0.0-0.4)
[2023-12-02 17:45] LABS: Glucose - Point of Care 87 mg/dl (70-99)
--- NOTE | 2023-12-02 17:59 | W.PN.HOSP.TC ---
Today's Communication/Plan
-
continue IVF
trend labs
await decision on timing of surgical intervention
Assessment / Plan
Assessment / Plan
Acute gallstone pancreatitis, improving, possible passage of stone
Lipase >4000-->1926
Bili 1.7-->2.9
AST 118-->69
MRCP: Borderline common bile duct dilatation without evidence for strictures or filling defects.
Hydropic gallbladder with small amount of pericholecystic fluid without discrete gallstones identified. Recommend clinical correlation for possibility of acute cholecystitis. HIDA scan could be considered for further evaluation if there is high
clinical concern.
Redemonstration of scattered pancreatic cystic lesions without suspicious features, slightly increased from prior exam 03/06/2023. Recommend follow-up MRI/MRCP abdomen without and with gadolinium contrast in 2 years per ACR criteria.
Benign appearing renal cysts redemonstrated.
Hx of Gilbert's
total Bili is 2.9 with direct of 0.5 which is consistent with Gilbert's
CAD. s/p PTCA, no stent ( believes in 2019)
pt known to [facility]
GERD stable
HLD
P: IVF
analgesia
GI and Surgical consults appreciated
see dictated note
full code
Anticipated Discharge: > 48 hours
Subjective/Interval History
-
Date of Service: December 02, 2023
Feels much better, abdominal pain significantly decreased
Objective Data
-
Labs:
Laboratory Results
12/02/23
05:41
WBC 11.4 H
Hgb 12.3 L
Hct 35.9 L
Plt Count 142 D
Sodium 139
Potassium 3.8
Chloride 107
Carbon Dioxide 25
BUN 23 H
Creatinine 1.0
Glucose 96
Calcium 7.9 L
Total Bilirubin 2.9 H D
AST 69 H
ALT 69 H
Alkaline Phosphatase 79
Vital Signs:
Vital Signs
Temp Pulse Resp BP Pulse Ox
99.4 F 55 18 150/74 95
12/02/23 15:09 12/02/23 15:09 12/02/23 15:09 12/02/23 15:09 12/02/23 15:09
I&O
12/01/23 12/02/23 12/03/23
06:59 06:59 06:59
Intake Total 120 / 120
Balance 120 / 120
Review of Systems
-
History Source: Patient and Family ( at bedside)
Constitutional: Reports Fever (Tmax 100.5, though afebrile past 24 hrs)
Respiratory: Reports No Symptoms
Cardiac: Reports No Symptoms; Denies Chest Pain
Abdomen/GI: Reports Abdominal Pain; Denies Nausea or Vomiting
Genitourinary: Reports No Symptoms; Denies Dysuria
Physical Exam
-
General: Well Developed, Well Nourished and No Apparent Distress
HEENT: Normocephalic, Atraumatic and Moist Mucous Membranes
Respiratory: Clear to Auscultation; Negative Wheezes, Rales or Rhonchi
Cardiac: Regular Rhythm
GI: Soft and Tender; Negative Normal Bowel Sounds (decreased)
Musculoskeletal: No Clubbing, No Cyanosis and No Edema
Neuro: Awake, Alert and Oriented
[2023-12-03 00:01] LABS: Glucose - Point of Care 91 mg/dl (70-99)
[2023-12-03 03:30] VITALS: BP 159/83
[2023-12-03] MEDS: NSS IV (03:53)
[2023-12-03] MEDS: FLAGYL 500 MG 100 IV ×2 (05:22→12:42)
[2023-12-03] MEDS: NSS 1000 IV ×2 (05:22→18:33)
[2023-12-03 07:07] LABS: Glucose - Point of Care 88 mg/dl (70-99)
[2023-12-03 07:27] LABS: Hematocrit 39.6 % (39.0-52.0); Hemoglobin 13.3 g/dL (13.0-18.0); Mean Corp Hgb Conc. 33.6 g/dL (33.0-37.0); Mean Corpuscular Hgb 31.1 pg (27.0-31.0); Mean Corpuscular Volume 92.5 fL (80.0-94.0); Mean Platelet Volume 11.5 fL (7.4-10.4); Platelet Count 144 10^3/uL (130-400); Red Blood Cell Count 4.28 10^6/uL (4.70-6.10); Red Cell Dist. Width 13.7 % (11.5-14.5); White Blood Cell Count 7.5 10^3/uL (4.8-10.8)
[2023-12-03 07:30] VITALS: BP 147/75
[2023-12-03 08:06] LABS: ALT (SGPT) 54 U/L (0-50); AST (SGOT) 67 U/L (17-59); Albumin 3.4 g/dl (3.5-5.0); Alkaline Phosphatase 95 U/L (38-126); Blood Urea Nitrogen 17 mg/dl (9-20); Calcium 8.5 mg/dl (8.4-10.2); Carbon Dioxide 26 mmol/L (22-30); Chloride 107 mmol/L (98-107); Direct Bilirubin 0.4 mg/dl (0.0-0.4); Estimated Creatinine Clearance 58 ml/min; Glucose 92 mg/dl (70-99); Lipase 1501 U/L (23-300); Sodium 140 mmol/L (135-145); Total Bilirubin 2.8 mg/dl (0.2-1.3); eGFR > 60.00
[2023-12-03 08:07] LABS: Glucose - Point of Care 97 mg/dl (70-99)
[2023-12-03] MEDS: NOVOLOG FLEXPEN-LOW RESISTANCE SC ×2 (08:13→12:39)
[2023-12-03] MEDS: PLENDIL EXTENDED RELEASE 10 MG PO (08:28)
[2023-12-03] MEDS: COZAAR 25 MG PO (08:28)
[2023-12-03] MEDS: PROTONIX IV 40 MG IV ×2 (08:28→21:00)
[2023-12-03] MEDS: NSS (PRESERVATIVE FREE) 10 ML IV ×2 (08:28→21:00)
--- NOTE | 2023-12-03 09:07 | W.PN.GS2 ---
Today's Communication / Plan
-
`
Assessment / Plan
-
Assessment: 83-year-old male admitted with acute pancreatitis; uncertain etiology but possible biliary mediated although there is a pancreatic cyst in the head of the pancreas immediately adjacent to the pancreatic duct and common bile duct
confluence as a potential additional etiology.
Reviewing patient's current radiographic imaging and previous MRIs dating back to 2018 at no point were gallstones ever visualized. His gallbladder appears very similar on current radiographic imaging and prior and on my review I do not see any
strong clinical or radiographic signs of acute cholecystitis.
AFVSS
Presenting symptoms essentially resolved with no significant residual abdominal tenderness
Reviewed with patient potential indications for cholecystectomy if we are to presume that this is biliary mediated however as mentioned above I advised the patient that at no point has any of his imaging appreciated gallstones.
After our discussions patient wishes to defer on cholecystectomy which I am in agreement with, as I cannot definitively tell him that cholecystectomy would eliminate future occurrence of pancreatitis particularly with the presence of a pancreatic
cyst in the head of the pancreas.
Plan: No plans for/definitive indications for cholecystectomy
Clear liquids and advance diet as tolerated to low-fat
Patient can always follow-up with us if desired as an outpatient to further discuss management of his gallbladder
Discussed with hospitalist and GI service
Patient will likely be referred for outpatient endoscopic ultrasound evaluation of pancreatic cyst
Subjective Data
-
Date of Service: December 03, 2023
Patient seen and examined.
Presenting symptoms have resolved. Slight abdominal discomfort just to the right of the epigastrium but his presenting symptoms have resolved
Appetite returning and hungry
+ flatus and bowel movements
Objective Data
-
Intake and Output
12/02/23 12/03/23 12/04/23
06:59 06:59 06:59
Intake Total 120 / 120 2029
Balance 120 / 120 2029
Intake:
Oral fluids 120 / 120 180 / 180
IV fluids (Total) 1650 / 1650
IV piggybacks 200 / 200
Other:
Number of approximated MODERATE 1 6
amounts of urine
Number of approximated LARGE 3
amounts of urine
Vital Signs
Temp Pulse Resp BP Pulse Ox
98.4 F 52 22 147/75 96
12/03/23 07:30 12/03/23 07:30 12/03/23 07:30 12/03/23 07:30 12/03/23 07:30
Lab Results
12/03/23 06:48
12/03/23 06:48
Calcium 8.5 mg/dl (8.4-10.2) 12/03/23 06:48
Total Bilirubin 2.8 mg/dl (0.2-1.3) H 12/03/23 06:48
Direct Bilirubin 0.4 mg/dl (0.0-0.4) 12/03/23 06:48
AST 67 U/L (17-59) H 12/03/23 06:48
ALT 54 U/L (0-50) H 12/03/23 06:48
Alkaline Phosphatase 95 U/L (38-126) 12/03/23 06:48
Total Protein 6.0 g/dl (6.3-8.2) L 12/03/23 06:48
Albumin 3.4 g/dl (3.5-5.0) L 12/03/23 06:48
Physical Exam
-
NAD AAOx3
ABD: Soft, nondistended, slight tenderness on palpation to the right of the epigastrium, no rebound rigidity or guarding
[2023-12-03 11:00] VITALS: BP 131/63
[2023-12-03 11:55] LABS: Glucose - Point of Care 112 mg/dl (70-99)
--- NOTE | 2023-12-03 14:55 | W.PN.HOSP.TC ---
Today's Communication/Plan
-
advance diet
slow IVF
follow labs
Assessment / Plan
Assessment / Plan
Acute gallstone pancreatitis, improving, possible passage of stone
Lipase >4000-->1926-->1501
Bili 1.7-->2.9-->2.8
AST 118-->69-->67
MRCP: Borderline common bile duct dilatation without evidence for strictures or filling defects.
Hydropic gallbladder with small amount of pericholecystic fluid without discrete gallstones identified. Recommend clinical correlation for possibility of acute cholecystitis. HIDA scan could be considered for further evaluation if there is high
clinical concern.
Redemonstration of scattered pancreatic cystic lesions without suspicious features, slightly increased from prior exam 03/06/2023. Recommend follow-up MRI/MRCP abdomen without and with gadolinium contrast in 2 years per ACR criteria.
Benign appearing renal cysts redemonstrated.
Hx of Gilbert's
total Bili is 2.9 with direct of 0.5 which is consistent with Gilbert's
CAD. s/p PTCA, no stent ( believes in 2019)
pt known to [facility]
GERD stable
HLD
P: IVF
analgesia
GI and Surgical consults appreciated
discussed with Dr. Groves, pt will start on diet
see dictated note
full code
Anticipated Discharge: 24 - 48 hours
Subjective/Interval History
-
Date of Service: December 03, 2023
Generally feeling better
Objective Data
-
Labs:
Laboratory Results
12/03/23
06:48
WBC 7.5
Hgb 13.3
Hct 39.6
Plt Count 144
Sodium 140
Potassium 4.0
Chloride 107
Carbon Dioxide 26
BUN 17
Creatinine 1.0
Glucose 92
Calcium 8.5
Total Bilirubin 2.8 H
AST 67 H
ALT 54 H
Alkaline Phosphatase 95
Vital Signs:
Vital Signs
Temp Pulse Resp BP Pulse Ox
98.7 F 60 20 131/63 96
12/03/23 11:00 12/03/23 11:00 12/03/23 11:00 12/03/23 11:00 12/03/23 11:00
I&O
12/02/23 12/03/23 12/04/23
06:59 06:59 06:59
Intake Total 120 / 120 2029
Balance 120 / 120 2029
Review of Systems
-
History Source: Patient and Family ( at bedside)
Constitutional: Reports Fever (Tmax 100.7, though afebrile past 24 hrs)
Respiratory: Reports No Symptoms
Cardiac: Reports No Symptoms; Denies Chest Pain
Abdomen/GI: Reports Abdominal Pain (markedly diminished); Denies Nausea or Vomiting
Genitourinary: Reports No Symptoms; Denies Dysuria
Physical Exam
-
General: Well Developed, Well Nourished and No Apparent Distress
HEENT: Normocephalic, Atraumatic and Moist Mucous Membranes
Respiratory: Clear to Auscultation; Negative Wheezes, Rales or Rhonchi
Cardiac: Regular Rhythm
GI: Soft and Tender; Negative Normal Bowel Sounds (decreased)
Musculoskeletal: No Clubbing, No Cyanosis and No Edema
Neuro: Awake, Alert and Oriented
[2023-12-03 15:10] VITALS: BP 138/69
--- NOTE | 2023-12-03 16:36 | CM ---
I met with Leodan and his today; Leodan is looking forward to going home and has been ambulating in the hallway. They live in an apartment and live 'simple lives'. Leodan's inquired about a tub bench for safety. I provided her with some
examples of tub benches and checked with PT/OT to see if they had any information to provide; therapy has not been ordered by the physician, so they are unable to see patient or recommend equipment.
Leodan and his felt they would be able to purchase a tub bench based on the items we had reviewed.
Plan: Discharge to home with no needs.
PCP: Sen Hines
Pharmacy: [facility]
[2023-12-03 18:12] LABS: Glucose - Point of Care 217 mg/dl (70-99)
[2023-12-03] MEDS: LOVENOX 40 MG SC (18:33)
[2023-12-03] MEDS: NOVOLOG FLEXPEN-LOW RESISTANCE 2 UNITS SC (18:33)
[2023-12-03] MEDS: LEVAQUIN 100 IV (18:33)
--- NOTE | 2023-12-03 19:01 | W.PN.GI.CBS2 ---
Today's Communication / Plan
-
Adv diet in AM and possible DC in AM
EUS as OP
F/U with Dr. Canada
Assessment / Plan
-
The pt is an 83 yo male with a PMH significant for significant for CAD with prior angioplasty, GERD, hypertension, DM2, hyperlipidemia, Gilbert's, GI bleed with gastric ulcer 2/2 NSAID's, who presented to the emergency room, with complaints of
abdominal pain. We are being asked to evaluate for gallstone pancreatitis. He notes acute onset of abdominal pain this morning, with no prior similar episodes in the past. He was found to have an elevated lipase greater than 4000 with abnormal
LFTs. Ultrasound imaging showing suspected cholecystitis with CBD dilation concerning for possible choledocholithiasis. He denies significant alcohol use, drinking only 1 glass of wine weekly. He denies any new medications. He was made n.p.o.,
admitted for further evaluation for general surgery and GI evaluation. IV fluids were initiated in the emergency room.
Problem list:
-Abdominal pain
-pancreatitis, 1st episode, lipase >4000
-abnormal LFT's
-US imaging showing possibly cholecystitis, CBD dilation
-hx Gilbert's
-hx GERD with PUD
-Snell's esophagus
Other pertinent medical hx:
-HTN
-HLD
-DM2
Recommendations:
-Etiology of abdominal pain secondary to pancreatitis which is suspected to be related to biliary etiology given CBD dilation ? passed stone vs from IPMN/pancreatic cyst less likely
-LFTS mildly elevated trending down, also has Gilbert's
-TG normal
-Continue PPI daily with history of Snell's esophagus and peptic ulcer disease
-Avoid NSAIDs
-He does have a history of renal cysts and also pancreatic cysts noted on prior MRI in 2022 thought to be related to possible IPMN with no worrisome features also noted on repeat MRI no PD dilatation. Will need EUS as OP
-Discussed with Dr. Groves doubt acute cholecystitis will DC antibiotics also discussed with Dr. Ann will advance diet to low-fat diet and if tolerates okay to DC tomorrow
-Had 4-5 bowel movements today but he says they are not loose could be antibiotic associated diarrhea will DC antibiotics today and if his diarrhea persists will check for C. difficile
Subjective
Subjective
Date of Service: December 03, 2023
Patient symptoms have markedly improved, he is tolerating full liquids, no further abdominal pain and fever also has resolved, had 4 Bm's
Objective
Data Reviewed
Laboratory Data:
Laboratory Results
12/03/23 06:48
12/03/23 06:48
Laboratory Results
Total Bilirubin 2.8 mg/dl (0.2-1.3) H 12/03/23 06:48
AST 67 U/L (17-59) H 12/03/23 06:48
ALT 54 U/L (0-50) H 12/03/23 06:48
Alkaline Phosphatase 95 U/L (38-126) 12/03/23 06:48
Lipase 1501 U/L (23-300) H* 12/03/23 06:48
Vital Signs and I&O:
Vital Signs
Temp Pulse Resp BP Pulse Ox
98.4 F 57 16 138/69 94
12/03/23 15:10 12/03/23 15:10 12/03/23 15:10 12/03/23 15:10 12/03/23 15:10
I&O
12/02/23 12/03/23 12/04/23
06:59 06:59 06:59
Intake Total 120 / 120 2029 300 / 300
Balance 120 / 120 2029 300 / 300
12/02/23 MRI with MRCP
IMPRESSION:
Borderline common bile duct dilatation without evidence for strictures or filling defects.
Hydropic gallbladder with small amount of pericholecystic fluid without discrete gallstones identified. Recommend clinical correlation for possibility of acute cholecystitis. HIDA scan could be considered for further evaluation if there is high
clinical concern.
Redemonstration of scattered pancreatic cystic lesions without suspicious features, slightly increased from prior exam 03/06/2023. Recommend follow-up MRI/MRCP abdomen without and with gadolinium contrast in 2 years per ACR criteria.
Benign appearing renal cysts redemonstrated.
Physical Exam
Physical Exam
Cardiology: Normal Sinus Rhythm
Pulmonary: Clear
GI: Soft, Non Distended, Tender (mild epigastric tenderness) and Normal Bowel Sounds
[2023-12-03 19:57] VITALS: BP 152/75
[2023-12-03 21:11] LABS: Glucose - Point of Care 128 mg/dl (70-99)
[2023-12-03 23:57] VITALS: BP 168/82
[2023-12-04 03:22] VITALS: BP 152/76
[2023-12-04] MEDS: NSS 1000 IV (05:22)
[2023-12-04 05:30] LABS: % Basophils 0.5 % (0-2); % Eosinophils 3.7 % (0-6); % Immature Granulocytes 0.3 % (0-0.5); % Lymphocytes 15.8 % (20.5-51.1); % Monocytes 12.6 % (1.7-9.3); % Neutrophils 67.1 % (42.2-75.2); Absolute Eosinophils 0.2 10^3/uL (0-0.7); Absolute Monocytes 0.8 10^3/uL (0.1-0.6); Absolute Neutrophils 4.2 10^3/uL (1.4-6.5); Hematocrit 38.9 % (39.0-52.0); Hemoglobin 13.8 g/dL (13.0-18.0); Mean Corp Hgb Conc. 35.5 g/dL (33.0-37.0); Mean Corpuscular Volume 87.4 fL (80.0-94.0); Mean Platelet Volume 11.1 fL (7.4-10.4); Nucleated Red Blood Cells % 0 % (-); Platelet Count 155 10^3/uL (130-400); Red Blood Cell Count 4.45 10^6/uL (4.70-6.10); Red Cell Dist. Width 13.4 % (11.5-14.5); White Blood Cell Count 6.3 10^3/uL (4.8-10.8)
[2023-12-04 06:21] LABS: ALT (SGPT) 56 U/L (0-50); AST (SGOT) 75 U/L (17-59); Albumin 3.7 g/dl (3.5-5.0); Alkaline Phosphatase 105 U/L (38-126); Blood Urea Nitrogen 13 mg/dl (9-20); Calcium 8.7 mg/dl (8.4-10.2); Carbon Dioxide 22 mmol/L (22-30); Chloride 109 mmol/L (98-107); Estimated Creatinine Clearance 72 ml/min; Glucose 116 mg/dl (70-99); Lipase 1285 U/L (23-300); Potassium 3.5 mmol/L (3.5-5.1); Sodium 140 mmol/L (135-145); Total Protein 6.5 g/dl (6.3-8.2); eGFR > 60.00
[2023-12-04 07:13] LABS: Glucose - Point of Care 129 mg/dl (70-99)
[2023-12-04 07:20] VITALS: BP 151/77
--- NOTE | 2023-12-04 08:24 | W.PN.GI.CBS2 ---
Today's Communication / Plan
-
Please see assessment and plan for details.
Assessment / Plan
-
1. Pancreatitis: Unclear etiology, though most likely passed CBD stone, no gallstones noted on ultrasound or MRI, feeling much better, with much improved labs, tolerating diet without difficulty. At this point he is okay to DC from a GI
standpoint. Will arrange follow-up with Dr. Canada in about a month, will consider further surveillance of pancreatic cysts which are minimally larger than March, though no other alarm features. Will sign off for now, please call back with any
further questions.
Subjective
Subjective
Date of Service: December 04, 2023
Patient is feeling very well today, denies any abdominal pain, nausea vomit, tolerating diet without difficulty.
Objective
Data Reviewed
Laboratory Data:
Laboratory Results
12/04/23 05:03
12/04/23 05:03
Laboratory Results
Total Bilirubin 2.0 mg/dl (0.2-1.3) H 12/04/23 05:03
AST 75 U/L (17-59) H 12/04/23 05:03
ALT 56 U/L (0-50) H 12/04/23 05:03
Alkaline Phosphatase 105 U/L (38-126) 12/04/23 05:03
Lipase 1285 U/L (23-300) H* 12/04/23 05:03
Vital Signs and I&O:
Vital Signs
Temp Pulse Resp BP Pulse Ox
98.7 F 52 18 152/76 97
12/04/23 03:22 12/04/23 03:22 12/04/23 03:22 12/04/23 03:22 12/04/23 03:22
I&O
12/03/23 12/04/23 12/05/23
06:59 06:59 06:59
Intake Total 2029 540 / 540
Balance 2029 540 / 540
Physical Exam
Physical Exam
General: NAD
Abdomen: normal bowel sounds, soft, no tenderness, no masses or bruits, no ascites
[2023-12-04] MEDS: NOVOLOG FLEXPEN-LOW RESISTANCE SC (08:37)
[2023-12-04] MEDS: COZAAR 25 MG PO (08:38)
[2023-12-04] MEDS: PLENDIL EXTENDED RELEASE 10 MG PO (08:38)
[2023-12-04] MEDS: PROTONIX IV 40 MG IV ×2 (08:39→20:28)
[2023-12-04] MEDS: NSS (PRESERVATIVE FREE) 10 ML IV ×2 (08:39→20:28)
--- NOTE | 2023-12-04 09:45 | PTCARENOTE ---
Pt was OOB in bathroom washing up. Tele alarming for elevated HR 130s-140s. Rhythm irregular, Pt feels fine no chest pain or SOB, VSS. EKG completed showing MD Francisco made aware, cards consult in place, plan of care ongoing,.
[2023-12-04 11:08] VITALS: BP 119/71
[2023-12-04] MEDS: NSS IV (11:44)
[2023-12-04 11:49] LABS: Glucose - Point of Care 155 mg/dl (70-99)
[2023-12-04] MEDS: NOVOLOG FLEXPEN-LOW RESISTANCE 1 UNITS SC ×2 (11:58→17:02)
--- NOTE | 2023-12-04 13:42 | CON.CAR ---
Addendum entered and electronically signed by Sandeep Reyez MD 12/04/23 16:14:
I saw and examined the patient.
The [employer]itime Pilot's note was reviewed and I agree with the note.
Comment:
GEN: No distress, awake, Ox3
HEENT: supple, anicteric, mmm
LUNGS: CTA, no wheezes/rales
CV: Reg, S1/S2, 1/6 syst LSB, no gallop
ABD: soft, BS+, NT/ND
EXT: No edema
NEURO: Gross non-focal
SKIN: No rash
Plan:
He is well-known to me with past medical history of coronary artery disease, hypertension, hyperlipidemia, diabetes, CKD 2-3 and sinus bradycardia. He presented to [facility] with pancreatitis and was treated conservatively. His lipase
improved significantly and he was getting ready for discharge. Today on day of discharge she was found to have new onset atrial flutter and atrial fibrillation with heart rates in the 100-120 range. The patient did not feel this. He has a chads
vasc score of 5. He spontaneously converted back into sinus rhythm. He has not tolerated beta-blockers in the past because of sinus bradycardia.
We will check an echocardiogram. He remains in sinus rhythm for now. Will stop his aspirin and start Eliquis 5 mg p.o. twice daily.
At this point I will hold off on beta-wyatt therapy with his known sinus bradycardia. Ultimately we may need to consider a pacemaker for him if he has further episodes of atrial fibrillation requiring AV vicki blockers.
His coronary disease has been stable. Continue felodipine and losartan.
His liver function testing continues to improve. I would restart atorvastatin upon discharge 80 mg daily.
Original Note:
Consultation
Consultation Request
Date/Time Consultation Requested: 12/04/2023
Date/Time Consultation Performed: 12/04/2023
Requesting Provider: Dr. Ann
Performing Provider: Dr. Reyez
Reason for Consultation: AFlutter
Medical History
-
History of Present Illness:
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 Pain started shortly after waking up and worsened throughout the morning,
prompting ER evaluation. In ER, he was found to have evidence of gallstone pancreatitis and he was admitted for further workup and evaluation. He improved with conservative management and did not require surgery. His diet has slowly been advanced
and he reports he is feeling better today than he has in a while. Throughout this admission, he has had brief episodes of tachycardia, however today he was noted to go into rapid atrial flutter for approximately 4 hours. He has no known history of
atrial flutter. While in flutter, his heart rates were steadily in the 110s to 120s, although patient was asymptomatic. He denied palpitations, dizziness, chest pain, SOB, or heart racing. He spontaneously converted to SR and remains in SR at this
time on review of telemetry. Given new atrial flutter, cardiology was consulted.
PMH:
CAD
INTERNATIONAL GUEST COORDINATOR of RCA w/ collaterals, 30% LM and 35% prox circ by cath 03/28/2016
HTN
HLD
CKD 3
DM2
h/o orthostasis
Bradycardia
h/o Gilbert's
Past Medical History
Past Medical History: Other (In HPI)
Past Surgical History: Orthopedic (L BK 08/19/2009, R BK 2017)
Social History
Tobacco: Former Smoker
Alcohol: Occasional
Drug: None
Personal:
Living: With Family
Employment: Retired
Family History
Family History: Reviewed & Not Pertinent
Allergies / Home Medications
Allergy/AdvReac Type Severity Reaction Status Date / Time
Penicillins Allergy Rash as a Verified 12/01/23 10:29
child
�Medication �Instructions �Recorded �Confirmed �Type
duloxetine 20 mg capsule,delayed 40 mg PO DAILY Pain 07/29/21 12/01/23 History
release
metformin 500 mg tablet 500 mg PO BID Diabetes 08/02/21 12/01/23 History
aspirin 81 mg tablet,delayed 81 mg PO QPM Blood clot 11/15/22 12/01/23 History
release prevention/tx
atorvastatin 80 mg tablet (Lipitor) 80 mg PO HS High cholesterol 11/15/22 12/01/23 History
docusate sodium 100 mg capsule 300 mg PO DAILY Constipation 11/15/22 12/01/23 History
aluminum-mag hydroxide-simethicone 5 ml PO DAILYPRN PRN gerd 12/01/23 12/01/23 History
200 mg-200 mg-20 mg/5 mL oral susp
aspirin 81 mg chewable tablet 324 mg PO DAILYPRN PRN chest pains 12/01/23 12/01/23 History
calcium citrate 200 mg 1 tab PO DAILY Supplement 12/01/23 12/01/23 History
calcium-vitamin D3 6.25 mcg (250
unit) tablet (Citracal-D3 Petites)
felodipine 10 mg tablet,extended 10 mg PO DAILY Blood Pressure 12/01/23 12/01/23 History
release 24 hr
losartan 25 mg tablet 25 mg PO DAILY Blood Pressure 12/01/23 12/01/23 History
pantoprazole 40 mg tablet,delayed 40 mg PO BID Gastrointestinal Issue 12/01/23 12/01/23 History
release
sennosides 8.6 mg tablet (senna) 8.6 mg PO DAILY Constipation 12/01/23 12/01/23 History
therapeutic multivitamin 1 tab PO DAILY Supplement 12/01/23 12/01/23 History
Review of Systems
-
History Source: Patient and Family ( at bedside)
All other systems: Negative unless noted
Physical Exam
Vital Signs
Temp Pulse Resp BP Pulse Ox
99.3 F 111 18 119/71 94
12/04/23 11:08 12/04/23 11:08 12/04/23 11:08 12/04/23 11:08 12/04/23 11:08
Lab Results
12/04/23 05:03
12/04/23 05:03
Physical Exam
General: Well Developed, Well Nourished and No Apparent Distress
HEENT: Normocephalic, Anicteric and Moist Mucous Membranes
Cardiac: S1/S2 and Regular Rhythm
Musculoskeletal: No Clubbing, No Cyanosis and No Edema
Skin: Warm and Dry
Neuro: AO x 3 and Nonfocal/Grossly Intact
Psych: Calm
Impression / Plan
-
PCP: Dr. Hines
Resource Analyst: Dr. Reyez
Impression:
Presented with abdominal pain
Gallstone pancreatitis - improving
Paroxysmal atrial flutter - newly diagnosed
CAD
INTERNATIONAL GUEST COORDINATOR of RCA w/ collaterals, 30% LM and 35% prox circ by cath 03/28/2016
HTN
HLD
CKD 3
DM2
h/o orthostasis
Bradycardia
h/o Gilbert's
Echo 01/08/2018: EF 60%, mild cLVH, mild MR, mild AR, mild TR, estimated PAP 33-38 mmHg.
Echo 12/04/2023: Study pending
Plan:
-Presented with abdominal pain and found to have acute gallstone pancreatitis. Improved over the past few days and has tolerated advancing his diet.
-Noted to go into rapid atrial flutter in AM 12/03. EKG reviewed and shows atrial flutter which is a new diagnosis. Spontaneously converted to SR after approx 4 hours.
-HRs while in atrial flutter were in the 110s to 120s, however while in SR, he is bradycardic. Previously has not tolerated BB medications due to bradycardia.
-Will hold off on rate control medication for now. Consider OP monitor to assess burden and HR trends
-Discussed anticoagulation and stroke risk with patient and . Will start Eliquis 5mg BID. [id number] score 5 (age 83, HTN, CAD, DM).
-Of note, patient does have history of bleeding ulcer in 2022, however has had no issues recently. Hgb stable. Continue to follow closely.
-Will have case management assess cost.
-K 3.5, will replete. Check mag and TSH
-Echo 01/2018 with preserved EF and mild MR, mild AR. Repeat echo pending.
-Known CAD w/ INTERNATIONAL GUEST COORDINATOR of RCA by cath in 2015. Chest pain free.
-BP stable, continue current meds.
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 Pain started shortly after waking up and worsened throughout the morning,
prompting ER evaluation. In ER, he was found to have evidence of gallstone pancreatitis and he was admitted for further workup and evaluation. He improved with conservative management and did not require surgery. His diet has slowly been advanced
and he reports he is feeling better today than he has in a while. Throughout this admission, he has had brief episodes of tachycardia, however today he was noted to go into rapid atrial flutter for approximately 4 hours. He has no known history of
atrial flutter. While in flutter, his heart rates were steadily in the 110s to 120s, although patient was asymptomatic. He denied palpitations, dizziness, chest pain, SOB, or heart racing. He spontaneously converted to SR and remains in SR at this
time on review of telemetry. Given new atrial flutter, cardiology was consulted.
Data Reviewed
-
EKG: Tracing Personally Visualized and interpreted
Radiology: Report Reviewed by me
Labs: Labs Reviewed by me
Old Records: Reviewed
--- NOTE | 2023-12-04 14:13 | W.PN.HOSP.TC ---
Today's Communication/Plan
-
Cardio eval of change in rhythm
Assessment / Plan
Assessment / Plan
Acute gallstone pancreatitis, improving, possible passage of stone
Lipase >4000-->1926-->1501-->1285
Bili 1.7-->2.9-->2.8-->2.0
AST 118-->69-->67-->75
MRCP: Borderline common bile duct dilatation without evidence for strictures or filling defects.
Hydropic gallbladder with small amount of pericholecystic fluid without discrete gallstones identified. Recommend clinical correlation for possibility of acute cholecystitis. HIDA scan could be considered for further evaluation if there is high
clinical concern.
Redemonstration of scattered pancreatic cystic lesions without suspicious features, slightly increased from prior exam 03/06/2023. Recommend follow-up MRI/MRCP abdomen without and with gadolinium contrast in 2 years per ACR criteria.
Benign appearing renal cysts redemonstrated.
Hx of Gilbert's
total Bili is 2.9 with direct of 0.5 which is consistent with Gilbert's
CAD. s/p PTCA, no stent ( believes in 2019)
pt known to Dereje
Onset of A. Flutter
dc placed on hold. Pt relates that he has felt similar episodes in past (?~1 year), though never investigated
GERD stable
HLD
P: IVF stopped
analgesia stopped
GI and Surgical consults appreciated
discussed with cardio, will start on Eliquis, await further input
reviewed with at bedside
Echo ordered
full code
Anticipated Discharge: 24 - 48 hours
Subjective/Interval History
-
Date of Service: December 04, 2023
Abd doing better, tolerating diet
Noted episode of tachycardia today, cardio has been consulted,
Objective Data
-
Labs:
Laboratory Results
12/04/23
05:03
WBC 6.3
Hgb 13.8
Hct 38.9 L
Plt Count 155
Sodium 140
Potassium 3.5
Chloride 109 H
Carbon Dioxide 22
BUN 13
Creatinine 0.8
Glucose 116 H
Calcium 8.7
Total Bilirubin 2.0 H
AST 75 H
ALT 56 H
Alkaline Phosphatase 105
Vital Signs:
Vital Signs
Temp Pulse Resp BP Pulse Ox
99.3 F 111 18 119/71 94
12/04/23 11:08 12/04/23 11:08 12/04/23 11:08 12/04/23 11:08 12/04/23 11:08
I&O
12/03/23 12/04/23 12/05/23
06:59 06:59 06:59
Intake Total 2029 540 / 540
Balance 2029 540 / 540
Review of Systems
-
History Source: Patient and Family ( at bedside)
Constitutional: Reports Fever (Tmax 100.7, though afebrile past 24 hrs)
Respiratory: Reports No Symptoms
Cardiac: Reports No Symptoms; Denies Chest Pain
Abdomen/GI: Reports Abdominal Pain (markedly diminished); Denies Nausea or Vomiting
Genitourinary: Reports No Symptoms; Denies Dysuria
Physical Exam
-
General: Well Developed, Well Nourished and No Apparent Distress
HEENT: Normocephalic, Atraumatic and Moist Mucous Membranes
Respiratory: Clear to Auscultation; Negative Wheezes, Rales or Rhonchi
Cardiac: Regular Rhythm
GI: Soft, Nontender and Normal Bowel Sounds
Musculoskeletal: No Clubbing, No Cyanosis and No Edema
Neuro: Awake, Alert and Oriented
[2023-12-04 14:44] LABS: Magnesium 1.6 mg/dl (1.6-2.3)
[2023-12-04] MEDS: KCL 20 MEQ PO (14:47)
[2023-12-04 15:12] LABS: TSH Reflex To Free T4 1.28 uIU/ml (0.47-4.68)
[2023-12-04 15:56] VITALS: BP 128/67
[2023-12-04 16:46] LABS: Glucose - Point of Care 163 mg/dl (70-99)
[2023-12-04 19:25] VITALS: BP 149/78
[2023-12-04] MEDS: ELIQUIS 5 MG PO (20:27)
[2023-12-04 21:32] LABS: Glucose - Point of Care 183 mg/dl (70-99)
[2023-12-04 23:31] VITALS: BP 160/86
[2023-12-05 03:33] VITALS: BP 158/82
[2023-12-05 07:15] VITALS: BP 150/79
[2023-12-05 07:46] LABS: Glucose - Point of Care 149 mg/dl (70-99)
[2023-12-05 08:22] LABS: ALT (SGPT) 59 U/L (0-50); AST (SGOT) 78 U/L (17-59); Albumin 3.9 g/dl (3.5-5.0); Alkaline Phosphatase 103 U/L (38-126); Blood Urea Nitrogen 20 mg/dl (9-20); Calcium 8.9 mg/dl (8.4-10.2); Carbon Dioxide 22 mmol/L (22-30); Chloride 108 mmol/L (98-107); Estimated Creatinine Clearance 64 ml/min; Glucose 156 mg/dl (70-99); Lipase 1537 U/L (23-300); Potassium 3.9 mmol/L (3.5-5.1); Sodium 140 mmol/L (135-145); Total Bilirubin 1.6 mg/dl (0.2-1.3); Total Protein 6.8 g/dl (6.3-8.2); eGFR > 60.00
[2023-12-05] MEDS: NOVOLOG FLEXPEN-LOW RESISTANCE SC ×2 (09:43→12:56)
[2023-12-05] MEDS: PLENDIL EXTENDED RELEASE 10 MG PO (09:43)
[2023-12-05] MEDS: ELIQUIS 5 MG PO (09:43)
[2023-12-05] MEDS: COZAAR 25 MG PO (09:43)
[2023-12-05] MEDS: FLUSH (NSS) 2 FLUSH IV (09:44)
[2023-12-05] MEDS: NSS (PRESERVATIVE FREE) 10 ML IV (09:44)
[2023-12-05] MEDS: PROTONIX IV 40 MG IV (09:44)
[2023-12-05] MEDS: FLUSH (NSS) 1 FLUSH IV (09:45)
[2023-12-05 11:06] VITALS: BP 148/74
--- NOTE | 2023-12-05 11:17 | W.PN.UPDATE ---
Update Note
Progress Note Update
Echo results reviewed with patient and . EF preserved and mild MR noted, stable compared to prior in 2018. He is doing well on Eliquis and has had no further Afib on tele. OK for discharge at this time. Cardiology follow up arranged.
[2023-12-05 12:43] LABS: Glucose - Point of Care 140 mg/dl (70-99)
--- NOTE | 2023-12-05 13:29 | W.PN.HOSP.TC ---
Today's Communication/Plan
-
dc to home
discussed with pt, , CM, CardioCindi
Assessment / Plan
Assessment / Plan
Acute gallstone pancreatitis, improving, possible passage of stone
Lipase >4000-->1926-->1501-->1285-->1537
Bili 1.7-->2.9-->2.8-->2.0-->1.6
AST 118-->69-->67-->75-->[address] Puente, will need follow up with gastroenterology
MRCP: Borderline common bile duct dilatation without evidence for strictures or filling defects.
Hydropic gallbladder with small amount of pericholecystic fluid without discrete gallstones identified. Recommend clinical correlation for possibility of acute cholecystitis. HIDA scan could be considered for further evaluation if there is high
clinical concern.
Redemonstration of scattered pancreatic cystic lesions without suspicious features, slightly increased from prior exam 03/06/2023. Recommend follow-up MRI/MRCP abdomen without and with gadolinium contrast in 2 years per ACR criteria.
Benign appearing renal cysts redemonstrated.
Hx of Gilbert's
total Bili is 2.9 with direct of 0.5 which is consistent with Gilbert's
CAD. s/p PTCA, no stent ( believes in 2019)
pt known to Dereje, reviewed with him
Onset of A. Flutter
dc placed on hold. Pt relates that he has felt similar episodes in past (?~1 year), though never investigated
GERD stable
HLD
P:dc now
see dictated note
full code
Anticipated Discharge: Today
Subjective/Interval History
-
Date of Service: December 05, 2023
No abdominal pain, tolerating diet. Denies dizziness
Objective Data
-
Labs:
Laboratory Results
12/05/23
07:55
Sodium 140
Potassium 3.9
Chloride 108 H
Carbon Dioxide 22
BUN 20
Creatinine 0.9
Glucose 156 H
Calcium 8.9
Total Bilirubin 1.6 H
AST 78 H
ALT 59 H
Alkaline Phosphatase 103
Vital Signs:
Vital Signs
Temp Pulse Resp BP Pulse Ox
97.8 F 51 18 148/74 97
12/05/23 11:06 12/05/23 11:06 12/05/23 11:06 12/05/23 11:06 12/05/23 11:06
I&O
12/04/23 12/05/23 12/06/23
06:59 06:59 06:59
Intake Total 540 / 540 1200 / 1200
Balance 540 / 540 1200 / 1200
Review of Systems
-
History Source: Patient and Family ( at bedside)
Constitutional: Reports Fever (Tmax 100.7, though afebrile >48 hrs)
Respiratory: Reports No Symptoms
Cardiac: Reports No Symptoms; Denies Chest Pain
Abdomen/GI: Reports Abdominal Pain (markedly diminished); Denies Nausea or Vomiting
Genitourinary: Reports No Symptoms; Denies Dysuria
Physical Exam
-
General: Well Developed, Well Nourished and No Apparent Distress
HEENT: Normocephalic, Atraumatic and Moist Mucous Membranes
Respiratory: Clear to Auscultation; Negative Wheezes, Rales or Rhonchi
Cardiac: Regular Rhythm
GI: Soft, Nontender and Normal Bowel Sounds
Musculoskeletal: No Clubbing, No Cyanosis and No Edema
Neuro: Awake, Alert and Oriented
--- NOTE | 2023-12-05 14:18 | CM ---
entered order for discharge.
Spoke with Danielle she said she will drive hime home today.
IMM reviewed with her . Signed on chart.
Offered Vn she requested [facility] .
PLAN Home with [facility] fax [phone]
[2023-12-05 15:10] VITALS: BP 147/75
--- NOTE | 2023-12-06 07:05 | W.DS.TRANS ---
DC Summary - Pit Inspector
-
Discharge Instructions:
Discharge Diagnosis/Procedures Pancreatitis
Diet Low Fat
Activity No strenuous activity
Driving Restrictions No driving
Bathing Restrictions None
Blood Work CBC, CMP, Lipase in 1 week
Other Services VN
Instructions:
Stand-Alone Forms:
Changes to Home Medications: Yes
Discharge Medications:
DC Medications w/original date entered in [employer]
duloxetine 20 mg capsule,delayed release 40 mg PO DAILY Pain 07/29/21
metformin 500 mg tablet 500 mg PO BID Diabetes 08/02/21
atorvastatin 80 mg tablet (Lipitor) 80 mg PO HS High cholesterol 11/15/22
docusate sodium 100 mg capsule 300 mg PO DAILY Constipation 11/15/22
aluminum-mag hydroxide-simethicone 200 mg-200 mg-20 mg/5 mL oral susp 5 ml PO DAILYPRN PRN gerd 12/01/23
calcium citrate 200 mg calcium-vitamin D3 6.25 mcg (250 unit) tablet (Citracal-D3 Petites) 1 tab PO DAILY Supplement 12/01/23
felodipine 10 mg tablet,extended release 24 hr 10 mg PO DAILY Blood Pressure 12/01/23
losartan 25 mg tablet 25 mg PO DAILY Blood Pressure 12/01/23
pantoprazole 40 mg tablet,delayed release 40 mg PO BID Gastrointestinal Issue 12/01/23
sennosides 8.6 mg tablet (senna) 8.6 mg PO DAILY Constipation 12/01/23
therapeutic multivitamin 1 tab PO DAILY Supplement 12/01/23
apixaban 5 mg tablet (Eliquis) 5 mg PO BID #60 tabs 12/05/23
Home Medication Changes
stop Aspirin and start Eliquis
Pending Results: No
== END 2023-12-05 15:32 | disposition home health service (06) | DRG 439 ==
LOC: 4 EAST ACU 12:46
PROVIDERS: Physician Assistant; Surgery; ADMITTING PHYSICIAN Internal Medicine; CONSULT PHYSICIAN Internal Medicine Gastroenterology; CONSULT PHYSICIAN Surgery; EMERGENCY PHYSICIAN Emergency Medicine; FAMILY PHYSICIAN Family Medicine; OTHER PHYSICIAN Internal Medicine Cardiovascular Disease
DX: K85.10 Biliary acute pancreatitis without necrosis or infection (principal); I48.92 Unspecified atrial flutter; K82.1 Hydrops of gallbladder; K81.0 Acute cholecystitis; K86.2 Cyst of pancreas; K21.9 Gastro-esophageal reflux disease without esophagitis; E78.00 Pure hypercholesterolemia, unspecified; N18.30 Chronic kidney disease, stage 3 unspecified; I12.9 Hypertensive chronic kidney disease with stage 1 through stage 4 chronic kidney disease, or unspecified chronic kidney disease; E11.22 Type 2 diabetes mellitus with diabetic chronic kidney disease; E80.4 Gilbert syndrome; I25.10 Atherosclerotic heart disease of native coronary artery without angina pectoris; K22.70 Barrett's esophagus without dysplasia; N28.1 Cyst of kidney, acquired; K83.8 Other specified diseases of biliary tract; Z96.643 Presence of artificial hip joint, bilateral; Z79.82 Long term (current) use of aspirin; Z79.84 Long term (current) use of oral hypoglycemic drugs; Z87.891 Personal history of nicotine dependence; Z98.61 Coronary angioplasty status; Z88.0 Allergy status to penicillin; Z87.11 Personal history of peptic ulcer disease; Z83.3 Family history of diabetes mellitus
CPT/HCPCS: 74183; 76700; 80053; 81003; 82248; 82962; 83036; 83690; 83735; 84443; 84478; 85025; 85027; 93005; 93306; 96361; 96374; 99285; A9575

== ENCOUNTER → 2024-01-31 08:38 | Outpatient (REF) | payer MEDICARE, SELFPAY | LOC: MRI 08:38 | PROVIDERS: ATTENDING PHYSICIAN Physician Assistant; FAMILY PHYSICIAN Family Medicine | DX: K85.90 Acute pancreatitis without necrosis or infection, unspecified (principal) | CPT/HCPCS: 74183; A9575 ==

== ENCOUNTER 2024-05-24 17:45 | Inpatient (IN) | payer MEDICARE, SELFPAY ==
[2024-05-24] VITALS (15 sets, daily range): BP systolic 157–193; BP diastolic 66–95; BMI 27.2; BMI 27.3
--- NOTE | 2024-05-24 13:45 | ED.GENMED ---
History of Present Illness
<Thais Best PA-C - Last Filed: 05/24/24 17:48>
General
Chief Complaint: Abdominal Symptoms
Source: patient
Exam Limitations: none
Time Seen by Provider: 05/24/24 13:25
Nursing documentation reviewed up to this point in time: agreed with
History of Present Illness
History of Present Illness:
84-year-old male past medical history of CAD, hypertension, hyperlipidemia presents emergency department today with concerns of epigastric pain that started around 11 AM today. Patient reports that he had endoscopy this morning and subsequent
pancreatic biopsy this morning. After the biopsy, he went to [place] and ate breakfast. He notes that after eating the meal, he developed sharp epigastric pain and vomited. Patient states that the vomiting persisted and the pain has not subsided.
He called EMS and was given Zofran Toradol en route, vomiting persists. He compares his pain when he had pancreatitis or any other bleeding ulcer. Patient denies rectal bleeding, denies melena. Patient also notes dizziness and lightheadedness.
States that this was been going on for the past few days leading up to this present illness. He denies fevers or chills. He denies chest pain, upper back pain. He denies shortness of breath. He also notes intermittent diarrhea. He denies recent
antibiotics.
Past History
<Thais Best PA-C - Last Filed: 05/24/24 17:48>
Past History
ED Past Medical History: CAD, GERD, HTN, Hypercholesterolemia, Psychiatric and Other (gilkalyani)
ED Past Surgical History: Cardiac (angioplasty) and Tonsilectomy
Social History
Tobacco: Former smoker
Alcohol: None
Drug: None
Personal:
Living: with family
Review of Systems
<Thais Best PA-C - Last Filed: 05/24/24 17:48>
Review of Systems
All Other Systems: ROS reviewed and negative except as documented in HPI and ROS
Phy Exam
<Thais Best PA-C - Last Filed: 05/24/24 17:48>
Physical Exam
Physical Exam:
General: Patient is well appearing and in no acute distress; non-toxic
Skin: Warm and dry, no rashes or lesions
Head: Normocephalic, atraumatic
Eyes: Sclera non-icteric. EOMs intact.
Cardiac: Regular rate
Peripheral Vascular:
Pulm: Normal respiratory effort
Abdomen: No abdominal tenderness
Musculoskeletal:
Neuro: CN II-XII intact, no focal neurologic deficits.
Psychiatric: Appropriate mood and affect.
Course
<Thais Best PA-C - Last Filed: 05/24/24 17:48>
Orders/Labs/Results
Orders:
Orders
05/24/24 13:30
EKG [Electrocardiogram (*1)] Urgent
Reason for Study: Tachycardia
EKG- Treatment ONCE
05/24/24 13:31
Complete Blood Count/With Diff Urgent
Comprehensive Metabolic Panel Urgent
Lipase Urgent
Comment: ADD ON
05/24/24 13:42
CT Chest/abd/pel W Iv Cont Urgent
Reason For Exam: epigastric pain following endoscopy, order combined
05/24/24 13:51
Morphine Sulfate 4 mg IV NOW STA
Ondansetron Injectable [Zofran] 4 mg IV NOW STA
05/24/24 13:59
Troponin I Urgent
05/24/24 14:28
Electrocardiogram (*1) Urgent
Reason for Study: Bradycardia / Tachycardia
EKG- Treatment ONCE
05/24/24 14:29
EKG [Electrocardiogram (*1)] Urgent
Reason for Study: Tachycardia
05/24/24 15:08
Add On- LAB Urgent
Tests Added?: lipase
05/24/24 16:30
Lactated Ringers [Lr] 500 ml IV 200 mls/hr
05/24/24 17:05
Potassium Chloride 10% Elixir [KCl Elixir] 40 meq PO NOW STA
05/24/24 17:23
Admit/Transfer Patient As Directed
Co-Sign Provider:
Level of Care: Inpatient admission
Assign to:: Telemetry
Physician / Group: kassidy
Diagnosis: pancreatitis
Reason for Telemetry: Arrhythmia
Date to Stop Telemetry: 05/27/24
Time to Stop Telemetry: 11:00
Reason for Hospitalization: pancretitis
Expected length of stay greater than two midnights?: Yes
ELOS- Estimated Length of Stay in days: 3
I certify the patient meets the requirements for IP care: Yes
PRN Pain Medication Management As Directed
May give lesser potent ordered pain med per pt: Yes
preference::
Protocol:: Medication orders for pain may be administered in a
manner that supports deferring to patient preference
when the pt is:
- Requesting an ordered lesser potent pain medication.
Least to most potent pain medications are defined
as: acetaminophen < NSAID < tramadol < opioids
(morphine, oxycodone, hydromorphone).
- Requesting a lesser dose of the same medication IF
ORDERED.
- Requesting a less intrusive route of administration
if both routes are prescribed by the provider (PO <
IV).
05/24/24 17:24
Code Status As Directed
Resuscitation Status: Full Code
05/27/24 11:00
DC Protocol for Telemetry ONCE
Abnormal Lab Results
05/24/24
13:31
RBC 4.27 L 10^6/uL
(4.70-6.10)
MPV 10.7 H fL
(7.4-10.4)
Absolute Neuts (auto) 7.4 H 10^3/uL
(1.4-6.5)
Absolute Monos (auto) 0.7 H 10^3/uL
(0.1-0.6)
Lymphocytes % 17.6 L %
(20.5-51.1)
Potassium 3.2 L mmol/L
(3.5-5.1)
BUN 25 H mg/dl
(9-20)
Glucose 140 H mg/dl
(70-99)
Total Bilirubin 2.8 H mg/dl
(0.2-1.3)
Lipase > 4000 H* U/L
(23-300)
05/24/24 13:31
05/24/24 13:31
Vital Signs
Initial and Last Documented VS:
Initial Vital Signs
Temp Pulse Resp BP Pulse Ox
98.2 F 70 23 173/87 97
05/24/24 13:25 05/24/24 13:25 05/24/24 13:25 05/24/24 13:25 05/24/24 13:25
Last Documented Vital Signs
Temp Pulse Resp BP Pulse Ox
98.2 F 55 20 193/87 94
05/24/24 13:25 05/24/24 17:15 05/24/24 17:15 05/24/24 17:00 05/24/24 17:15
<Wolfgang Simmons MD - Last Filed: 05/24/24 14:04>
Orders/Labs/Results
Orders:
Orders
05/24/24 13:30
EKG [Electrocardiogram (*1)] Urgent
Reason for Study: Tachycardia
EKG- Treatment ONCE
05/24/24 13:31
Complete Blood Count/With Diff Urgent
Comprehensive Metabolic Panel Urgent
Lipase Urgent
Comment: ADD ON
05/24/24 13:42
CT Chest/abd/pel W Iv Cont Urgent
Reason For Exam: epigastric pain following endoscopy, order combined
05/24/24 13:51
Morphine Sulfate 4 mg IV NOW STA
Ondansetron Injectable [Zofran] 4 mg IV NOW STA
05/24/24 13:59
Troponin I Urgent
05/24/24 14:28
Electrocardiogram (*1) Urgent
Reason for Study: Bradycardia / Tachycardia
EKG- Treatment ONCE
05/24/24 14:29
EKG [Electrocardiogram (*1)] Urgent
Reason for Study: Tachycardia
05/24/24 15:08
Add On- LAB Urgent
Tests Added?: lipase
05/24/24 16:30
Lactated Ringers [Lr] 500 ml IV 200 mls/hr
05/24/24 17:05
Potassium Chloride 10% Elixir [KCl Elixir] 40 meq PO NOW STA
05/24/24 17:23
Admit/Transfer Patient As Directed
Co-Sign Provider:
Level of Care: Inpatient admission
Assign to:: Telemetry
Physician / Group: kassidy
Diagnosis: pancreatitis
Reason for Telemetry: Arrhythmia
Date to Stop Telemetry: 05/27/24
Time to Stop Telemetry: 11:00
Reason for Hospitalization: pancretitis
Expected length of stay greater than two midnights?: Yes
ELOS- Estimated Length of Stay in days: 3
I certify the patient meets the requirements for IP care: Yes
PRN Pain Medication Management As Directed
May give lesser potent ordered pain med per pt: Yes
preference::
Protocol:: Medication orders for pain may be administered in a
manner that supports deferring to patient preference
when the pt is:
- Requesting an ordered lesser potent pain medication.
Least to most potent pain medications are defined
as: acetaminophen < NSAID < tramadol < opioids
(morphine, oxycodone, hydromorphone).
- Requesting a lesser dose of the same medication IF
ORDERED.
- Requesting a less intrusive route of administration
if both routes are prescribed by the provider (PO <
IV).
05/24/24 17:24
Code Status As Directed
Resuscitation Status: Full Code
05/27/24 11:00
DC Protocol for Telemetry ONCE
Abnormal Lab Results
05/24/24
13:31
RBC 4.27 L 10^6/uL
(4.70-6.10)
MPV 10.7 H fL
(7.4-10.4)
Absolute Neuts (auto) 7.4 H 10^3/uL
(1.4-6.5)
Absolute Monos (auto) 0.7 H 10^3/uL
(0.1-0.6)
Lymphocytes % 17.6 L %
(20.5-51.1)
Potassium 3.2 L mmol/L
(3.5-5.1)
BUN 25 H mg/dl
(9-20)
Glucose 140 H mg/dl
(70-99)
Total Bilirubin 2.8 H mg/dl
(0.2-1.3)
Lipase > 4000 H* U/L
(23-300)
05/24/24 13:31
05/24/24 13:31
Vital Signs
Initial and Last Documented VS:
Initial Vital Signs
Temp Pulse Resp BP Pulse Ox
98.2 F 70 23 173/87 97
05/24/24 13:25 05/24/24 13:25 05/24/24 13:25 05/24/24 13:25 05/24/24 13:25
Last Documented Vital Signs
Temp Pulse Resp BP Pulse Ox
98.2 F 55 20 193/87 94
05/24/24 13:25 05/24/24 17:15 05/24/24 17:15 05/24/24 17:00 05/24/24 17:15
<ELBA Crump Last Filed: 05/24/24 17:48>
MDM/Problems Addressed
Differential Diagnosis Includes:
ddx include esophageal perforation, esophagitis, pancreatitis, gastritis, duodenal ulcer, ACS
MDM/Problems Addressed:
84-year-old male past medical history of CAD, hypertension, hyperlipidemia presents emergency department today with concerns of epigastric pain that started around 11 AM today. Patient reports that he had endoscopy this morning and subsequent
pancreatic biopsy this morning. After the biopsy, he went to [place] and ate breakfast. He notes that after eating the meal, he developed sharp epigastric pain and vomited. States this feels similar when he had pancreatitis in the past. On
physical exam, patient is well-appearing, intermittently vomiting. That he is afebrile, he is not hypotensive. CBC unremarkable. CMP shows hypokalemia. Lipase is over 4000, with CT showing evidence of pancreatitis. Will refer patient for
admission.
Chronic conditions affecting care:
GERD, diabetes, CAD, HLP, HTN
<Thais Best PA-C - Last Filed: 05/24/24 17:48>
*Pulse Oximetry
Patient hypoxic: no
*Critical Care Note
Total Time (30-74mins, 75-104mins- exclusive of procedures): Not Applicable
Data Reviewed
Review of Other/Old Records Reveals: Records (Reviewed she had upper endoscopy ultrasound report, fine-needle aspiration performed ) and Discharge Summary (Reviewed discharge summary from 12/06/2023, patient admitted for acute gallstone pancreatitis)
Source: patient and records
<ELBA Crump Last Filed: 05/24/24 17:48>
Patient Management
Escalation/DeEscalation of care consider admission/obs:
Reviewed case with my ER attending
ED Attending Note
<Thais Best PA-C - Last Filed: 05/24/24 17:48>
-
Portions of this chart may have been created with voice recognition software.� Occasional wrong word or��sound alike� substitutions may have occurred due to the inherent limitations of voice recognition software.
<Wolfgang Simmons MD - Last Filed: 05/24/24 14:04>
ED Attending Note
Patient seen and examined by attending physician: Yes
I performed the substantive portion of visit, reviewed & personally made and approve the management plan that is documented in note by myself or MOHINI.: Yes
ED Attending Note:
84-year-old male with a history of pancreatitis. Had a follow-up outpatient endoscopic ultrasound done today. Pancreatic biopsies were done. Fine upon discharge. Went to [employer]. Late into his meal he started developing upper
abdominal pain nausea and vomiting. No radiation no chest pain no shortness of breath no syncope.
On exam patient is nontoxic. He he is clinically stable. Vital signs are stable. Lungs are clear and equal. Heart regular rate and rhythm no murmur. Abdomen is soft. Bowel sounds are present. Mild epigastric and mild right upper quadrant
tenderness. No rebound or guarding no mass or hernia. Extremities are warm and dry. Grossly nonfocal. Perfusing well.
Previous testing reviewed. Large differential including perforation secondary to procedure, pancreatitis, gastritis or ulcer. Workup in progress. CT pending.
Discharge Plan
Departure
Patient Disposition: Admit
Date of Disposition: 05/24/24
Time of Disposition: 16:10
Presentation/result/management discussed w/ accepting MD/DO: Hospitalist
Condition: Fair
Discharge Problem:
Acute pancreatitis
Prescriptions:
No Action
duloxetine 20 MG capsule,delayed release(DR/EC)
40 mg PO DAILY
metformin 500 MG tablet
500 mg PO BID
atorvastatin [Lipitor] 80 mg Tablet
80 mg PO HS
therapeutic multivitamin Tablet
1 tab PO DAILY
losartan 25 mg Tablet
25 mg PO DAILY
pantoprazole 40 mg tablet,delayed release (DR/EC)
40 mg PO BID
felodipine 10 MG tablet extended release 24 hr
5 mg PO DAILY
Xarelto 20 mg Tablet
20 mg PO QPM
Probiotic 3 billion cell Capsule
3,000 mmu cells PO DAILY
ciprofloxacin HCl 250 mg Tablet
250 mg PO BID
Referrals:
Sen Hines MD [Family Provider] -
Discharge Date and Time
Print Language: GEORGIAN
[2024-05-24] MEDS: MORPHINE SULFATE 4 MG IV (13:58)
[2024-05-24] MEDS: ZOFRAN 4 MG IV (13:58)
[2024-05-24 14:01] LABS: % Basophils 0.3 % (0-2); % Eosinophils 2.5 % (0-6); % Immature Granulocytes 0.4 % (0-0.5); % Lymphocytes 17.6 % (20.5-51.1); % Monocytes 6.6 % (1.7-9.3); % Neutrophils 72.6 % (42.2-75.2); Absolute Eosinophils 0.3 10^3/uL (0-0.7); Absolute Lymphocytes 1.8 10^3/uL (1.2-3.4); Absolute Monocytes 0.7 10^3/uL (0.1-0.6); Absolute Neutrophils 7.4 10^3/uL (1.4-6.5); Hematocrit 39.5 % (39.0-52.0); Hemoglobin 13.2 g/dL (13.0-18.0); Mean Corp Hgb Conc. 33.4 g/dL (33.0-37.0); Mean Corpuscular Hgb 30.9 pg (27.0-31.0); Mean Corpuscular Volume 92.5 fL (80.0-94.0); Mean Platelet Volume 10.7 fL (7.4-10.4); Nucleated Red Blood Cells % 0 % (-); Platelet Count 182 10^3/uL (130-400); Red Blood Cell Count 4.27 10^6/uL (4.70-6.10); Red Cell Dist. Width 14.1 % (11.5-14.5); White Blood Cell Count 10.2 10^3/uL (4.8-10.8)
[2024-05-24 14:14] LABS: ALT (SGPT) 36 U/L (0-50); AST (SGOT) 54 U/L (17-59); Albumin 4.4 g/dl (3.5-5.0); Alkaline Phosphatase 76 U/L (38-126); Blood Urea Nitrogen 25 mg/dl (9-20); Calcium 8.5 mg/dl (8.4-10.2); Carbon Dioxide 28 mmol/L (22-30); Chloride 102 mmol/L (98-107); Estimated Creatinine Clearance 50 ml/min; Glucose 140 mg/dl (70-99); Potassium 3.2 mmol/L (3.5-5.1); Sodium 144 mmol/L (135-145); Total Bilirubin 2.8 mg/dl (0.2-1.3); Total Protein 7.1 g/dl (6.3-8.2); eGFR > 60.00
[2024-05-24 14:42] LABS: Troponin I < 0.012 ng/ml
[2024-05-24 16:27] LABS: Lipase > 4000 U/L (23-300)
[2024-05-24] MEDS: LR 500 IV (16:35)
--- NOTE | 2024-05-24 17:00 | HPS.HSE ---
Family Physician
-
Family Physician: Sen Hines
Chief Complaint
-
epgistric pain
History of Present Illness
84-year-old male past medical history of CAD, hypertension, hyperlipidemia presents emergency department today with concerns of epigastric pain that started around 11 AM today. Patient reports that he had endoscopy this morning and subsequent
pancreatic biopsy this morning since he had the pancreatitis in December. After the biopsy, he went to [place] and ate breakfast. He notes that after eating the meal, he developed sharp epigastric pain and multiple episode of vomiting. Patient
denies rectal bleeding, denies melena. Patient also notes dizziness and lightheadedness. He denies fevers or chills. He denies chest pain, upper back pain. He denies shortness of breath. He also notes intermittent diarrhea. He denies recent
antibiotics.
Ct with pancreatitis. Patient received fluids, morphine, Zofran, potassium in ER.
Admitting for further management
Medical History
Past Medical History
Past Medical History: Reports Other
Additional Past Medical History:
Coronary artery disease
CKD
Hyperlipidemia
Pancreatic cyst
Gilbert's syndrome
Type 2 diabetes
Hypertension
Bundle branch block
Snell's esophagus
Past Surgical History: Reports Other
Additional Past Surgical History:
Right hip replacement
Left knee surgery
Social History
Tobacco: Non-smoker
Alcohol: None
Drug: None
Personal:
Living: With Family
Family History
Family History: Not pertinent
Allergies / Home Medications
Allergies reflects when Allergies were last updated in [facility].
Home Medications with original date entered in [facility]
Allergy/Medication List:
Allergies
Allergy/AdvReac Type Severity Reaction Status Date / Time
Penicillins Allergy Rash as a Verified 05/24/24 07:06
child
Home Medications
duloxetine 20 mg capsule,delayed release 40 mg PO DAILY Pain 07/29/21
metformin 500 mg tablet 500 mg PO BID Diabetes 08/02/21
atorvastatin 80 mg tablet (Lipitor) 80 mg PO HS High cholesterol 11/15/22
felodipine 10 mg tablet,extended release 24 hr 5 mg PO DAILY Blood Pressure 12/01/23
losartan 25 mg tablet 25 mg PO DAILY Blood Pressure 12/01/23
pantoprazole 40 mg tablet,delayed release 40 mg PO BID Gastrointestinal Issue 12/01/23
therapeutic multivitamin 1 tab PO DAILY Supplement 12/01/23
lactobacillus combination no.4 3 billion cell capsule (Probiotic) 3,000 mmu cells PO DAILY 05/24/24
rivaroxaban 20 mg tablet (Xarelto) 20 mg PO QPM 05/24/24
Review of Systems
-
Constitutional: Reports No Symptoms
EENT: Reports No Symptoms
Respiratory: Reports No Symptoms
Cardiac: Reports No Symptoms
Abdomen/GI: Reports Abdominal Pain (Epigastric), Nausea and Vomiting
: Reports No Symptoms
Musculoskeletal: Reports No Symptoms
Skin: Reports No Symptoms
Neurological: Reports No Symptoms
Endocrine: Reports No Symptoms
Hematologic/Lymphatic: Reports No Symptoms
Psych: Reports No Symptoms
Physical Exam
Vital Signs
Vital Signs
Temp Pulse Resp BP Pulse Ox
98.2 F 54 18 173/87 94
05/24/24 13:25 05/24/24 13:35 05/24/24 13:35 05/24/24 13:25 05/24/24 13:35
Physical Exam
General: Well Developed, Well Nourished and No Apparent Distress
HEENT: NormoCephalic, Moist mucous membranes and Atraumatic
Respiratory: Clear
Cardiac: S1/S2 and Regular Rhythm; No Murmur or Rub
GI: Non Distended, Normal Bowel Sounds and Tender; No Organomegaly
Rectal: Deferred by Provider
Musculoskeletal: No Clubbing, No Cyanosis and No Edema
Skin: No Rash
Neuro: AO x 3 and Nonfocal/grossly intact
Laboratory Results
-
05/24/24 13:31
05/24/24 13:31
Laboratory Results
Total Bilirubin 2.8 mg/dl (0.2-1.3) H 05/24/24 13:31
AST 54 U/L (17-59) 05/24/24 13:31
ALT 36 U/L (0-50) 05/24/24 13:31
Alkaline Phosphatase 76 U/L (38-126) 05/24/24 13:31
Troponin I < 0.012 ng/ml 05/24/24 13:59
Lipase Cancelled 05/24/24 15:06
Data Reviewed
-
CT Scan: Report Reviewed by me
Lab Data: Labs Reviewed by me
Impression/Plan
-
# Pancreatitis
-Keep patient n.p.o.
-Lactated Ringer's continued
-Morphine as needed for pain
-GI following patient
-Lipase greater than 4000
-CT abdomen pelvis with impression of There is no evidence of pneumomediastinum There is fluid surrounding the pancreas which suggests pancreatitis. There is thickening along the proximal duodenum. This may be related to recent endoscopy.
-Cipro 250 bid for 3 days s/p ENDO US
# Hypokalemia likely from vomiting
-K3.2
-Supplement with oral KCl monitor BMP
#Hx of Gilbert's
#CAD. s/p PTCA, no stent
#GERD
-PPI continued
#HLD
-Statin
# Anxiety-duloxetine
# Hypertension
-Felodipine, losartan continued
-hydralazine added
# Type 2 diabetes
-Hold metformin
-Sliding scale
#paroxysmal atrial fib
-on Xarelto
-EKG with sinus rhythm with positive AV block with frequent PVCs, incomplete right bundle branch block, nonspecific ST and T wave abnormality, prolonged QT
#DVT prophylaxis
-Xarelto
#CODE status
-full code
[2024-05-24] MEDS: KCL ELIXIR 40 MEQ PO (17:53)
[2024-05-24] MEDS: MORPHINE SULFATE 1 MG IV ×2 (18:01→23:06)
--- NOTE | 2024-05-24 18:04 | W.PN.UPDATE ---
Update Note
Progress Note Update
This is addendum to the H&P written by Le Birch on 05/24/2024. Patient seen and examined independently with TREATER.
84-year-old male past medical history of CAD, hypertension, hyperlipidemia presenting with epigastric pain and vomiting at 11 AM today patient had endoscopic ultrasound with pancreatic biopsy for recent episode of pancreatitis, and another prior
episode of pancreatitis. Pancreatitis was possibly thought secondary to gallstones though no clear etiology was found.
Patient with uncontrolled hypertension with blood pressure up to 183/87.
Labs show hypokalemia. Lipase greater than 4000. Patient with recurrent pancreatitis unclear if related to endoscopic ultrasound with pancreatic biopsy today. N.p.o., IV fluids with lactated Ringer's, Zofran, Dilaudid, as needed hydralazine. GI
consulted.
[2024-05-24] MEDS: LR IV ×2 (19:07→22:14)
--- NOTE | 2024-05-24 20:40 | PTCARENOTE ---
Pt received from ED at 2009. Pt pleasant, AAOX3, and able to ambulate into room. Pt complains of RUQ and middle abdominal pain, no complaints of nausea or vomiting. Pt at bedside, went over pt medications with has she was concerned pt was
getting all his home medications. Pt bed in lowest position and call rashid within reach. Pt educated on importance of call rashid usage, pt relays understanding and cooperation. Will continue with current plan of care.
[2024-05-24] MEDS: PROTONIX 40 MG PO (21:01)
[2024-05-24] MEDS: CIPRO 250 MG PO (21:01)
[2024-05-24] MEDS: XARELTO 20 MG PO (21:01)
[2024-05-24 21:57] LABS: Triglycerides 89 mg/dl (10-149)
[2024-05-24] MEDS: LR 1000 IV (22:57)
[2024-05-25] MEDS: MORPHINE SULFATE 1 MG IV ×2 (02:57→19:50)
[2024-05-25 03:30] VITALS: BP 146/74
[2024-05-25] MEDS: LR 1000 IV ×3 (03:56→14:09)
[2024-05-25] MEDS: MORPHINE SULFATE 2 MG IV (05:53)
[2024-05-25 06:54] LABS: Glucose - Point of Care 85 mg/dl (70-99)
[2024-05-25 07:30] VITALS: BP 148/76
[2024-05-25 07:57] LABS: Hematocrit 33.3 % (39.0-52.0); Hemoglobin 11.3 g/dL (13.0-18.0); Mean Corp Hgb Conc. 33.9 g/dL (33.0-37.0); Mean Corpuscular Hgb 31.7 pg (27.0-31.0); Mean Corpuscular Volume 93.3 fL (80.0-94.0); Mean Platelet Volume 11.3 fL (7.4-10.4); Platelet Count 154 10^3/uL (130-400); Red Blood Cell Count 3.57 10^6/uL (4.70-6.10); Red Cell Dist. Width 14.6 % (11.5-14.5); White Blood Cell Count 9.7 10^3/uL (4.8-10.8)
[2024-05-25] MEDS: PROTONIX 40 MG PO ×2 (08:29→19:43)
[2024-05-25] MEDS: PLENDIL EXTENDED RELEASE 5 MG PO (08:29)
[2024-05-25] MEDS: CYMBALTA DELAYED RELEASE 40 MG PO (08:29)
[2024-05-25] MEDS: CIPRO 250 MG PO ×2 (08:29→19:43)
[2024-05-25] MEDS: VISBIOME 1 CAP PO (08:30)
[2024-05-25] MEDS: COZAAR 25 MG PO (08:48)
--- NOTE | 2024-05-25 09:00 | CON.GI ---
Addendum entered and electronically signed by Pamela Mendiola MD 05/25/24 14:54:
I saw and examined the patient.
The medical housekeeper note was reviewed and I agree with the note.
EUS report reviewed
Pancreatic cyst-s/p EUS FNA 05/[address] Rizvi-complicated by acute pancreatitis
Prior history of idiopathic pancreatitis
Snell's esophagus
plan
N.p.o.
Continue IV fluid LR at 100 cc/ hr
Pain management as per medical team
Follow-up FNA cytology with Dr. Rizvi
Continue Cipro twice daily for 3 days as recommended by Dr. Rizvi
Case discussed with Dr. Rizvi
Original Note:
Consultation
-
Date/Time Consultation Requested: 05/24,20:05
Date/Time Consultation Performed: 05/25,9:00
Requesting Provider: Justen Stark
Performing Provider: Pamela Mendiola
Reason for Consultation: Acute Pancreatitis
Medical History
Chief Complaint / HPI
Chief Complaint: Epigastric pain associated with vomiting for 1 day
History of Present Illness:
Patient is an 84-year-old male with past medical history of coronary artery disease, chronic kidney disease, hyperlipidemia, type 2 diabetes mellitus, essential hypertension, Snell's esophagus, pancreatic cyst, paroxysmal atrial fibrillation and
anxiety. He is compliant with his medications . He had an episode of acute pancreatitis on November 30, 2023 which was managed with conservative measures including fluid resuscitation and pain management. He was discharged after
improvement in 5 days. He underwent endoscopic ultrasound 2 days ago, performed by Dr. Rizvi, to assess the cause of pancreatitis. He was feeling well, he went out to have some breakfast yesterday and he developed signs and symptoms of pancreatitis
again.
He had pain in the epigastric and right upper quadrant region that was sudden in onset, moderate to severe in intensity, sharp, radiating towards the back, progressive and was associated with vomiting. He had 8-10 episodes of vomiting, with food
particles and there was no blood. He was brought into the emergency and his blood pressure at that time was greater than 180. An urgent CT abdomen pelvis, revealed small gallstones and pancreatic inflammation along with peripancreatic fluid. His
WBC count was 9.7, hemoglobin 11.3, hematocrit 33.3, platelets 154. Potassium 3.2, BUN 25, creatinine 1.1, total bilirubin 2.8, AST 54, ALT 36, alkaline phosphatase 76. Lipid panel pending.
His past medical history includes hyperlipidemia for which he takes atorvastatin. He used to drink 1 glass of wine every week which he stopped after the first episode of pancreatitis and he quit smoking 40 years ago. He is obese with a BMI of
27.3.He denies any recent weight loss or newer medications.Appetite and sleep good.
Patient started on the conservative treatment for acute pancreatitis. He is n.p.o. and is on Ringer lactate infusion. His pain is being managed with morphine but patient still complains of 6/10 pain but reports improvement in nausea and vomiting.
Past Medical History
Past Medical History: CAD, GERD, HTN, Hypercholesterolemia, NIDDM and Other (paroxysmal atrial fibrillation,anxeity,CKD,Pancreatic cyst,ed esophagus)
Past Surgical History: Orthopedic (Right hip replacement, Left knee surgery)
Social History
Tobacco: Former Smoker (Quit around 37years of age)
Alcohol: Other (Used to drink one glass of wine a day,quit in )
Drug: None
Personal:
Living: With Family
Family History
Family History: Reviewed & Not Pertinent and CAD
Allergies / Home Medications
Allergy/AdvReac Type Severity Reaction Status Date / Time
Penicillins Allergy Rash as a Verified 05/24/24 07:06
child
�Medication �Instructions �Recorded
duloxetine 20 mg capsule,delayed 40 mg PO DAILY Pain 07/29/21
release
metformin 500 mg tablet 500 mg PO BID Diabetes 08/02/21
atorvastatin 80 mg tablet (Lipitor) 80 mg PO HS High cholesterol 11/15/22
felodipine 10 mg tablet,extended 5 mg PO DAILY Blood Pressure 12/01/23
release 24 hr
losartan 25 mg tablet 25 mg PO DAILY Blood Pressure 12/01/23
pantoprazole 40 mg tablet,delayed 40 mg PO BID Gastrointestinal Issue 12/01/23
release
therapeutic multivitamin 1 tab PO DAILY Supplement 12/01/23
ciprofloxacin HCl 250 mg tablet 250 mg PO BID Infection 05/24/24
lactobacillus combination no.4 3 3,000 mmu cells PO DAILY 05/24/24
billion cell capsule (Probiotic)
rivaroxaban 20 mg tablet (Xarelto) 20 mg PO QPM Blood Clot 05/24/24
Prevention/Tx
Review of Systems
-
All other systems: A 12 pt ROS was Negative except as stated above in HPI
Vital Signs
Temp Pulse Resp BP Pulse Ox
99.2 F 57 20 148/76 94
05/25/24 07:30 05/25/24 08:29 05/25/24 07:30 05/25/24 08:29 05/25/24 07:30
Physical Exam
Exam
General: Well Developed and Pain (6/10 in epigastric and RUQ region)
HEENT: Anicteric
Respiratory: Clear
Cardiac: S1/S2 and Regular Rhythm
GI: Soft, Normal Bowel Sounds and Tender (RUQ and epigastric region)
Genito-urinary: No Costovertebral Tender
Musculoskeletal: No Cyanosis and No Edema
Skin: Warm
Neuro: Awake, Oriented and No Motor Deficits
Hematologic/Lymphatic: No Lymphadenopathy
Psych: Calm
Results
WBC 9.7 10^3/uL (4.8-10.8) 05/25/24 07:33
Hgb 11.3 g/dL (13.0-18.0) L 05/25/24 07:33
Hct 33.3 % (39.0-52.0) L 05/25/24 07:33
MCV 93.3 fL (80.0-94.0) 05/25/24 07:33
Plt Count 154 10^3/uL (130-400) 05/25/24 07:33
Absolute Neuts (auto) 7.4 10^3/uL (1.4-6.5) H 05/24/24 13:31
Sodium 144 mmol/L (135-145) 05/24/24 13:31
Potassium 3.2 mmol/L (3.5-5.1) L 05/24/24 13:31
Chloride 102 mmol/L (98-107) 05/24/24 13:31
Carbon Dioxide 28 mmol/L (22-30) 05/24/24 13:31
BUN 25 mg/dl (9-20) H 05/24/24 13:31
Creatinine 1.1 mg/dL (0.7-1.3) 05/24/24 13:31
Calcium 8.5 mg/dl (8.4-10.2) 05/24/24 13:31
Total Bilirubin 2.8 mg/dl (0.2-1.3) H 05/24/24 13:31
AST 54 U/L (17-59) 05/24/24 13:31
ALT 36 U/L (0-50) 05/24/24 13:31
Alkaline Phosphatase 76 U/L (38-126) 05/24/24 13:31
Lipase Cancelled 05/24/24 15:06
Diagnostic Image Results:
Prior GI Procedures: Endoscopic Ultrasound 05/23/2024
EGD: 2022,Snell esophagus
Colonoscopy:
Assessment / Plan
-
IMPRESSION
Patient is an 84-year-old male with past medical history of coronary artery disease, hyperlipidemia, increased BMI, type 2 diabetes mellitus, essential hypertension, paroxysmal atrial fibrillation, Snell's esophagus, pancreatic cyst, previous
episode of acute pancreatitis on November 30, 2023, who had an endoscopic ultrasound done on May 23, 2024, redeveloped signs and symptoms of acute pancreatitis yesterday 05/24, who was admitted for management of acute pancreatitis on conservative
lines. CT abdomen showed peripancreatic fluid consistent with acute pancreatitis.
ASSESSMENT
1. Recurrent pancreatitis
Pain in the epigastric and right upper quadrant region
Associated nausea and vomiting
History of endoscopic ultrasound on May 23, 2024 for evaluation of acute pancreatitis in Nov, 2023
Lipase 05/24 is greater than 4000
History of hyperlipidemia, use of alcohol beverages, small gallstones on the CT scan, obesity
CT chest/abdomen/pelvis
IMPRESSION:
1. There is no evidence of pneumomediastinum
2. There is fluid surrounding the pancreas which suggests pancreatitis.
3. There is thickening along the proximal duodenum. This may be related to recent endoscopy.
There were also small gallstones observed in the CT
TLC within normal limits
Bilirubin 2.8, liver enzymes within normal limits
BUN 25
Vomiting improved
Patient drank some apple juice in the morning for hypoglycemia
Tender in the epigastric and right upper quadrant
2. Uncontrolled blood pressure
Felodipine 5 mg daily,
losartan 25 mg daily
Hydralazine 10 mg IV 4 hourly as needed
Blood pressure 148 / 76, pulse 57
Continue to monitor and optimize blood pressure
3. Other medical conditions
Hyperlipidemia-continue atorvastatin
Diabetes mellitus-continue insulin on sliding scale
Anxiety-continue duloxetine
Paroxysmal atrial fibrillation-continue Xarelto
GERD-continue omeprazole
PLAN
Continue to manage acute pancreatitis through conservative measures
Keep n.p.o.
Continue IV fluids
Continue morphine for pain
Counseled the patient about diagnosis and probable causes along with prognosis
Follow lipid panel
Follow endoscopic ultrasound report
Encourage to adopt healthy lifestyle and avoid alcoholic beverages
Encouraged weight loss
-
-
Thank you for consultation and allowing me to participate in the patient's care. Please call the communications professor GI physician during the after hours with any questions or concerns.
[2024-05-25 09:53] LABS: HDL Cholesterol 41 mg/dl; LDL Cholesterol, Calculated 50 mg/dl; Total Cholesterol 105 mg/dl (50-199); Triglyceride 73 mg/dl (10-149); Very Low Density Lipoprotein 14 mg/dl (0-30)
[2024-05-25 10:15] LABS: Lipase 2972 U/L (23-300)
[2024-05-25 11:45] VITALS: BMI 27.3
[2024-05-25 11:58] VITALS: BP 124/70
[2024-05-25 12:04] LABS: Glucose - Point of Care 93 mg/dl (70-99)
--- NOTE | 2024-05-25 14:04 | CM ---
Pt seen bedside w/ spouse. Pt lives w/ spouse in a [address]st fl[address] apartment.
Pt is independent. Per pt he has a cane and walker but only uses it when needed
Pt also has a shower chair that is used when needed and a tub grab bar as additional support
Denies SNF in the past, but participated in OP rehab at
Had [facility] in the past
Address, point of contact and insurances verified
PCP: Dr. Sen Hines
Per spouse, she will transport home at d/c
Plan: Home; no needs anticipated
CM will cont. to follow for poss d/c needs
--- NOTE | 2024-05-25 14:06 | W.PN.HOSP.TC ---
Today's Communication/Plan
-
Assessment / Plan
Assessment / Plan
Imaging
IMPRESSION:
1. There is no evidence of pneumomediastinum
2. There is fluid surrounding the pancreas which suggests pancreatitis.
3. There is thickening along the proximal duodenum. This may be related to recent endoscopy.
Physical Exam
NAD, resting comfortably in bed
Scleral anicteric
Moist mucous membranes
No JVD
CTA bilateral
Normal S1-S2 no murmurs
Soft nontender nondistended bowel sounds active
No peripheral pitting edema
Moves extremities spontaneously
AAOx3
Assessment and Plan
Acute pancreatitis
-Likely triggered dietary
-IV fluids with LR at a rate of 200 cc/h
-No indication for antibiotics
-IV analgesics
-N.p.o.
-TG 73
History of Martin Bears
-Outpatient follow-up with GI
-Follow-up bilirubin
CAD
-S/p angioplasty
-Continue high intensity statin
Hypertension
-Continue with hypertensives
Type 2 diabetes
-Hold metformin
-Sliding scale
-Accu-Cheks
-Goal blood glucose 1 40-1 80 while inpatient
-Currently n.p.o.
-Hypoglycemic protocol
Anticipated Discharge: 24 - 48 hours
Subjective/Interval History
-
Date of Service: May 25, 2024
Seen and examined. No new complaints. No acute overnight events.
States that the morphine is helping. Previously had pain of 9/10. Now down to 5/10. Does not look uncomfortable.
No further nausea vomiting or diarrhea
He states that previously when he was admitted in December for acute pancreatitis which was his first episode he was on a morphine drip and therefore asked for morphine drip.
Objective Data
-
Labs:
Laboratory Results
05/25/24
07:33
WBC 9.7
Hgb 11.3 L
Hct 33.3 L
Plt Count 154
Vital Signs:
Vital Signs
Temp Pulse Resp BP Pulse Ox
98.2 F 62 24 124/70 95
05/25/24 11:58 05/25/24 11:58 05/25/24 11:58 05/25/24 11:58 05/25/24 11:58
I&O
05/24/24 05/25/24 05/26/24
06:59 06:59 06:59
Intake Total 2640 / 2640
Output Total 600 / 600
Balance 2039
[2024-05-25 14:31] LABS: Glycohemoglobin (HgbA1c) 6.4 % (4.0-5.6)
[2024-05-25 15:22] VITALS: BP 136/66
[2024-05-25 16:23] LABS: Glucose - Point of Care 88 mg/dl (70-99)
[2024-05-25] MEDS: XARELTO 20 MG PO (16:37)
[2024-05-25] MEDS: LR IV ×2 (16:39→19:40)
[2024-05-25 19:28] VITALS: BP 160/79
[2024-05-25] MEDS: LR 500 IV (19:42)
[2024-05-25 21:18] LABS: Glucose - Point of Care 90 mg/dl (70-99)
[2024-05-25 23:12] VITALS: BP 168/80
[2024-05-26] MEDS: LR IV (01:58)
[2024-05-26 03:25] VITALS: BP 156/75
[2024-05-26] MEDS: LR 1000 IV (04:51)
[2024-05-26 07:19] LABS: Glucose - Point of Care 89 mg/dl (70-99)
[2024-05-26] MEDS: VISBIOME 1 CAP PO (07:45)
[2024-05-26] MEDS: CIPRO 250 MG PO ×2 (07:45→20:40)
[2024-05-26] MEDS: CYMBALTA DELAYED RELEASE 40 MG PO (07:45)
[2024-05-26] MEDS: PROTONIX 40 MG PO ×2 (07:45→20:40)
[2024-05-26] MEDS: COZAAR 25 MG PO (07:46)
[2024-05-26] MEDS: PLENDIL EXTENDED RELEASE 5 MG PO (07:46)
[2024-05-26 08:00] VITALS: BP 146/67
[2024-05-26 08:28] LABS: Hematocrit 31.9 % (39.0-52.0); Hemoglobin 10.4 g/dL (13.0-18.0); Mean Corp Hgb Conc. 32.6 g/dL (33.0-37.0); Mean Corpuscular Hgb 30.9 pg (27.0-31.0); Mean Corpuscular Volume 94.7 fL (80.0-94.0); Mean Platelet Volume 11.1 fL (7.4-10.4); Platelet Count 141 10^3/uL (130-400); Red Blood Cell Count 3.37 10^6/uL (4.70-6.10); Red Cell Dist. Width 14.5 % (11.5-14.5); White Blood Cell Count 9.3 10^3/uL (4.8-10.8)
--- NOTE | 2024-05-26 08:44 | W.PN.GI.CBS2 ---
Addendum entered and electronically signed by Pamela Mendiola MD 05/26/24 14:05:
I saw and examined the patient.
The medical csr note was reviewed and I agree with the note.
Pancreatic cyst-s/p EUS FNA 05/[address] Rizvi-complicated by acute pancreatitis
Prior history of idiopathic pancreatitis
Snell's esophagus
plan
Abdominal pain is better. Will start on clear liquid diet and advance as tolerated to low fat diet
DC IV fluid
Pain management as per medical team
Follow-up FNA cytology with Dr. Rizvi
Continue Cipro twice daily for 3 days as recommended by Dr. Rizvi
OV follow-up with Dr. Rizvi. No other recommendation at this point. Will s/o. Please call us back if any questions
Original Note:
Today's Communication / Plan
-
Clear liquid diet
Pain management as per medical team
Counseled the patient about further steps in his management
Encourage to adopt healthy lifestyle and avoid alcoholic beverages
Encouraged weight loss
Assessment / Plan
-
IMPRESSION
Patient is an 84-year-old male with past medical history of coronary artery disease, hyperlipidemia, increased BMI, type 2 diabetes mellitus, essential hypertension, paroxysmal atrial fibrillation, Snell's esophagus, pancreatic cyst, previous
episode of acute pancreatitis on November 30, 2023, who had an endoscopic ultrasound done on May 23, 2024, redeveloped signs and symptoms of acute pancreatitis yesterday 05/24, who was admitted for management of acute pancreatitis on conservative
lines. CT abdomen showed peripancreatic fluid consistent with acute pancreatitis.
Patient is on ciprofloxacin 250mg twice daily (3 days)
ASSESSMENT
1. Pancreatitis post EUS
Patient presented with pain in the epigastric and right upper quadrant region associated nausea and vomiting
History of endoscopic ultrasound on May 23, 2024 for evaluation of acute pancreatitis in Nov, 2023
Lipase 05/24> 4000,05/25 2972,decreasing trend
History of hyperlipidemia, use of alcohol beverages, small gallstones on the CT scan, obesity
CT chest/abdomen/pelvis
Consistent with pancreatitis secondary to EUS
There were also small gallstones observed in the CT
TLC within normal limits
Bilirubin 2.8, liver enzymes within normal limits
BUN 25
Triglycerides
(10-149�mg/dl) 73
Total Cholesterol
(50-199�mg/dl) 105
LDL Cholesterol, Calc
50
VLDL Choesterol, Calc
(0-30�mg/dl) 14��
HDL Cholesterol
41
Vomiting improved
Patient reports improvement in pain
2. Uncontrolled blood pressure
Blood pressure 146 / 76
Continue to monitor
3. Other medical conditions
Hyperlipidemia-continue atorvastatin
Diabetes mellitus-continue insulin on sliding scale [id number]=2.4,BSR-88
Anxiety-continue duloxetine
Paroxysmal atrial fibrillation-continue Xarelto
GERD-continue omeprazole
PLAN
Continue to manage acute pancreatitis through conservative measures
Clear liquid diet
Pain management as per medical team
Counseled the patient about further steps in his management
Encourage to adopt healthy lifestyle and avoid alcoholic beverages
Encouraged weight loss
Subjective
Subjective
Date of Service: May 26, 2024
No active issues.Patient feels well and reports improvement in abdominal pain.No vomiting.
Objective
Data Reviewed
Laboratory Data:
Laboratory Results
05/26/24 08:07
05/24/24 13:31
Laboratory Results
Total Bilirubin 2.8 mg/dl (0.2-1.3) H 05/24/24 13:31
AST 54 U/L (17-59) 05/24/24 13:31
ALT 36 U/L (0-50) 05/24/24 13:31
Alkaline Phosphatase 76 U/L (38-126) 05/24/24 13:31
Lipase 2972 U/L (23-300) H* 05/25/24 07:33
Vital Signs and I&O:
Vital Signs
Temp Pulse Resp BP Pulse Ox
98.4 F 54 20 146/67 93
05/26/24 08:00 05/26/24 08:00 05/26/24 08:00 05/26/24 08:00 05/26/24 08:00
I&O
05/25/24 05/26/24 05/27/24
06:59 06:59 06:59
Intake Total 2640 / 2640 1320 / 1320
Output Total 600 / 600 800 / 800
Balance 2040 / 2040 520 / 520
Physical Exam
Physical Exam
HEENT: Anicteric and Moist mucous membranes
Cardiology: Normal Sinus Rhythm, S1 and S2
Pulmonary: Clear
GI: Soft, Non Tender and Normal Bowel Sounds
Extremities: Edema (mild bilateral edemma)
Neuro: Non Focal
[2024-05-26 11:34] VITALS: BP 130/60
[2024-05-26 12:06] LABS: Glucose - Point of Care 74 mg/dl (70-99)
--- NOTE | 2024-05-26 13:03 | W.PN.HOSP.TC ---
Today's Communication/Plan
-
Assessment / Plan
Assessment / Plan
Imaging
IMPRESSION:
1. There is no evidence of pneumomediastinum
2. There is fluid surrounding the pancreas which suggests pancreatitis.
3. There is thickening along the proximal duodenum. This may be related to recent endoscopy.
Physical Exam
NAD, resting comfortably in bed
Scleral anicteric
Moist mucous membranes
No JVD
CTA bilateral
Normal S1-S2 no murmurs
Soft nontender nondistended bowel sounds active
No peripheral pitting edema
Moves extremities spontaneously
AAOx3
Assessment and Plan
Acute pancreatitis
-Likely triggered dietary
-IV fluids with LR at a rate of 200 cc/h
-No indication for antibiotics
-IV analgesics
-CLD, advance as toelrated
-TG 73
History of Martin Bears
-Outpatient follow-up with GI
-Follow-up bilirubin
CAD
-S/p angioplasty
-Continue high intensity statin
Hypertension
-Continue with hypertensives
Type 2 diabetes
-Hold metformin
-Sliding scale
-Accu-Cheks
-Goal blood glucose 1 40-1 80 while inpatient
-Currently n.p.o.
-Hypoglycemic protocol
Anticipated Discharge: 24 - 48 hours
Subjective/Interval History
-
Date of Service: May 26, 2024
Seen and examined. No new complaints. Overnight events.
States pain is now seen only improved. Wants to attempt diet.
Objective Data
-
Labs:
Laboratory Results
05/26/24
08:07
WBC 9.3
Hgb 10.4 L
Hct 31.9 L
Plt Count 141
Vital Signs:
Vital Signs
Temp Pulse Resp BP Pulse Ox
98.9 F 60 22 130/60 94
05/26/24 11:34 05/26/24 11:34 05/26/24 11:34 05/26/24 11:34 05/26/24 11:34
I&O
05/25/24 05/26/24 05/27/24
06:59 06:59 06:59
Intake Total 2640 / 2640 1320 / 1320
Output Total 600 / 600 800 / 800
Balance 2039 / 2039 520 / 520
[2024-05-26 15:00] VITALS: BP 136/66
[2024-05-26 16:56] LABS: Glucose - Point of Care 129 mg/dl (70-99)
[2024-05-26] MEDS: XARELTO 20 MG PO (17:04)
[2024-05-26 19:25] VITALS: BP 140/80
[2024-05-26 23:10] VITALS: BP 148/61
[2024-05-27 03:30] VITALS: BP 139/53
[2024-05-27 07:04] VITALS: BP 149/76
[2024-05-27 07:07] LABS: Hemoglobin 10.4 g/dL (13.0-18.0); Mean Corp Hgb Conc. 33.5 g/dL (33.0-37.0); Mean Corpuscular Hgb 31.3 pg (27.0-31.0); Mean Corpuscular Volume 93.4 fL (80.0-94.0); Mean Platelet Volume 11.3 fL (7.4-10.4); Platelet Count 149 10^3/uL (130-400); Red Blood Cell Count 3.32 10^6/uL (4.70-6.10); Red Cell Dist. Width 14.1 % (11.5-14.5); White Blood Cell Count 7.9 10^3/uL (4.8-10.8)
[2024-05-27 07:18] LABS: Glucose - Point of Care 102 mg/dl (70-99)
[2024-05-27 07:32] LABS: Blood Urea Nitrogen 23 mg/dl (9-20); Calcium 7.7 mg/dl (8.4-10.2); Carbon Dioxide 26 mmol/L (22-30); Chloride 103 mmol/L (98-107); Estimated Creatinine Clearance 46 ml/min; Glucose 107 mg/dl (70-99); Potassium 3.7 mmol/L (3.5-5.1); Sodium 142 mmol/L (135-145); eGFR > 60.00
[2024-05-27] MEDS: COZAAR 25 MG PO (08:49)
[2024-05-27] MEDS: CYMBALTA DELAYED RELEASE 40 MG PO (08:49)
[2024-05-27] MEDS: CIPRO 250 MG PO (08:49)
[2024-05-27] MEDS: VISBIOME 1 CAP PO (08:49)
[2024-05-27] MEDS: PROTONIX 40 MG PO (08:49)
[2024-05-27] MEDS: PLENDIL EXTENDED RELEASE 5 MG PO (08:49)
[2024-05-27 11:00] VITALS: BP 155/73
[2024-05-27 11:40] LABS: Glucose - Point of Care 139 mg/dl (70-99)
--- NOTE | 2024-05-27 11:51 | W.PN.HOSP.TC ---
Today's Communication/Plan
-
dc home
More than 30 minutes spent in discharge including
Final examination of the patient
Summarizing hospital stay
Instructions for continuing care to all relevant caregivers
Preparation of discharge records, prescriptions, and referral forms
Total time spent (in minutes): 33m
Assessment / Plan
Assessment / Plan
Imaging
IMPRESSION:
1. There is no evidence of pneumomediastinum
2. There is fluid surrounding the pancreas which suggests pancreatitis.
3. There is thickening along the proximal duodenum. This may be related to recent endoscopy.
Physical Exam
NAD, resting comfortably in bed
Scleral anicteric
Moist mucous membranes
No JVD
CTA bilateral
Normal S1-S2 no murmurs
Soft nontender nondistended bowel sounds active
No peripheral pitting edema
Moves extremities spontaneously
AAOx3
Assessment and Plan
Acute pancreatitis - resolved, tolerating diet, no pain
-Likely triggered dietary
-DC IVF
-No indication for antibiotics
-IV analgesics
-tolerated advanced diet well
-TG 73
History of Martin Bears
-Outpatient follow-up with GI
-Follow-up bilirubin
CAD
-S/p angioplasty
-Continue high intensity statin
Hypertension
-Continue with hypertensives
Type 2 diabetes
-Hold metformin
-Sliding scale
-Accu-Cheks
-Goal blood glucose 1 40-1 80 while inpatient
-Currently n.p.o.
-Hypoglycemic protocol
Anticipated Discharge: Today
Subjective/Interval History
-
Date of Service: May 27, 2024
seen and examined. no new complaints. no acute overnight events
Objective Data
-
Labs:
Laboratory Results
05/27/24
06:28
WBC 7.9
Hgb 10.4 L
Hct 31.0 L
Plt Count 149
Sodium 142
Potassium 3.7
Chloride 103
Carbon Dioxide 26
BUN 23 H
Creatinine 1.2
Glucose 107 H
Calcium 7.7 L
Vital Signs:
Vital Signs
Temp Pulse Resp BP Pulse Ox
98.7 F 51 16 149/76 95
05/27/24 07:04 05/27/24 07:04 05/27/24 07:04 05/27/24 07:04 05/27/24 08:35
I&O
05/26/24 05/27/24 05/28/24
06:59 06:59 06:59
Intake Total 1320 / 1320 840 / 840
Output Total 800 / 800 400 / 400
Balance 520 / 520 440 / 440
--- NOTE | 2024-05-27 12:00 | W.DCSUMMARY ---
Discharge Summary
Discharge Data
Date of Admission: 05/24/24
Date of Discharge: 05/27/24
-
Pending Results: Yes
Additional Pending Results:
EUS with pancreatic bx
Hospital Course
84 male history of CAD hypertension hyperlipidemia pregastric pain after having endoscopic ultrasound with pancreatic biopsy. Was provided with [address] abdomen pelvis demonstrating concerning findings for pancreatitis along
with a lipase greater than 4000. Started on IV fluids analgesics. Advance diet slowly. Tolerated well. Discharged with outpatient GI follow-up.
Discharge Plan
-
Patient Disposition: Home (Routine Discharge)
Discharge Diagnosis/Procedures: Acute pancreatitis
Condition: Good
Diet: As tolerated, Low Fat and Low Cholesterol
Activity: No restrictions and As tolerated
Referrals:
Pamela Mendiola MD [Active] - in two to three weeks
Sen Hines MD [Family Provider] -
Prescriptions:
Continued
duloxetine 20 MG capsule,delayed release(DR/EC)
40 mg PO DAILY
metformin 500 MG tablet
500 mg PO BID
atorvastatin [Lipitor] 80 mg Tablet
80 mg PO HS
therapeutic multivitamin Tablet
1 tab PO DAILY
losartan 25 mg Tablet
25 mg PO DAILY
pantoprazole 40 mg tablet,delayed release (DR/EC)
40 mg PO BID
felodipine 10 MG tablet extended release 24 hr
5 mg PO DAILY
Xarelto 20 mg Tablet
20 mg PO QPM
Probiotic 3 billion cell Capsule
3,000 mmu cells PO DAILY
ciprofloxacin HCl 250 mg Tablet
250 mg PO BID
Discharge Orders:
Discharge Patient (As Directed); Ordered 05/27/24
Ordered By: Chandler Vicente
Discharge Date and Time
Print Language: PASHTO
--- NOTE | 2024-05-27 12:33 | CM ---
Chart reviewed. Pt to d/c today
Pt seen bedside. Per pt, his will transport at d/c
IMM reviewed, pt given copy. Copy placed in chart
No CM needs identified at this time
Plan: Home; no needs
== END 2024-05-27 15:28 | disposition home or self-care (01) | DRG 439 ==
LOC: 4 WEST ACU 17:45
PROVIDERS: Physician Assistant; Registered Nurse; ADMITTING PHYSICIAN Hospitalist; ATTENDING PHYSICIAN Hospitalist; CONSULT PHYSICIAN Internal Medicine Gastroenterology; EMERGENCY PHYSICIAN Emergency Medicine; FAMILY PHYSICIAN Family Medicine
DX: K85.10 Biliary acute pancreatitis without necrosis or infection (principal); K86.2 Cyst of pancreas; I25.10 Atherosclerotic heart disease of native coronary artery without angina pectoris; I12.9 Hypertensive chronic kidney disease with stage 1 through stage 4 chronic kidney disease, or unspecified chronic kidney disease; N18.9 Chronic kidney disease, unspecified; E78.00 Pure hypercholesterolemia, unspecified; K21.9 Gastro-esophageal reflux disease without esophagitis; E87.6 Hypokalemia; E11.22 Type 2 diabetes mellitus with diabetic chronic kidney disease; E80.4 Gilbert syndrome; K22.70 Barrett's esophagus without dysplasia; E66.9 Obesity, unspecified; I45.10 Unspecified right bundle-branch block; E11.649 Type 2 diabetes mellitus with hypoglycemia without coma; F41.9 Anxiety disorder, unspecified; I48.0 Paroxysmal atrial fibrillation; Z96.641 Presence of right artificial hip joint; Z87.891 Personal history of nicotine dependence; Z79.84 Long term (current) use of oral hypoglycemic drugs; Z79.01 Long term (current) use of anticoagulants; Z88.0 Allergy status to penicillin; Z98.61 Coronary angioplasty status; Z68.27 Body mass index [BMI] 27.0-27.9, adult
CPT/HCPCS: 88173; 88305; 71260; 74177; 80048; 80053; 80061; 82962; 83036; 83690; 84478; 84484; 85025; 85027; 93005; 96374; 96375; Q9967

== ENCOUNTER → 2024-06-08 06:40 | Outpatient (REF) | payer MEDICARE, SELFPAY | LOC: PAVMRI 06:40 | PROVIDERS: ATTENDING PHYSICIAN Specialist; FAMILY PHYSICIAN Family Medicine | DX: M25.552 Pain in left hip (principal); M54.50 Low back pain, unspecified | CPT/HCPCS: 72148; 73721 ==

== ENCOUNTER → 2024-07-13 07:35 | Outpatient (REF) | payer MEDICARE, SELFPAY | LOC: HWRAD 07:35 | PROVIDERS: ATTENDING PHYSICIAN Family Medicine; REFERRING PHYSICIAN Specialist | DX: R79.89 Other specified abnormal findings of blood chemistry (principal) | CPT/HCPCS: 76770 ==

== ENCOUNTER 2024-11-09 13:30 | Inpatient (IN) | payer MEDICARE, SELFPAY ==
[2024-11-09] VITALS (11 sets, daily range): BP systolic 128–168; BP diastolic 80–105; BMI 26.6; BMI 26.7
[2024-11-09 10:31] LABS: % Basophils 0.7 % (0-2); % Eosinophils 3.3 % (0-6); % Immature Granulocytes 0.1 % (0-0.5); % Lymphocytes 24.9 % (20.5-51.1); % Monocytes 6.6 % (1.7-9.3); % Neutrophils 64.4 % (42.2-75.2); Absolute Basophils 0.1 10^3/uL (0-0.2); Absolute Eosinophils 0.3 10^3/uL (0-0.7); Absolute Lymphocytes 1.9 10^3/uL (1.2-3.4); Absolute Monocytes 0.5 10^3/uL (0.1-0.6); Hematocrit 39.3 % (39.0-52.0); Hemoglobin 13.4 g/dL (13.0-18.0); Mean Corp Hgb Conc. 34.1 g/dL (33.0-37.0); Mean Corpuscular Hgb 30.9 pg (27.0-31.0); Mean Corpuscular Volume 90.6 fL (80.0-94.0); Mean Platelet Volume 10.8 fL (7.4-10.4); Nucleated Red Blood Cells % 0 % (-); Platelet Count 211 10^3/uL (130-400); Red Blood Cell Count 4.34 10^6/uL (4.70-6.10); Red Cell Dist. Width 13.9 % (11.5-14.5); White Blood Cell Count 7.7 10^3/uL (4.8-10.8)
[2024-11-09] MEDS: MORPHINE SULFATE 4 MG IV (10:49)
[2024-11-09] MEDS: NSS 1000 IV ×3 (10:49→22:56)
[2024-11-09 10:50] LABS: ALT (SGPT) 32 U/L (0-50); AST (SGOT) 35 U/L (17-59); Albumin 4.2 g/dl (3.5-5.0); Alkaline Phosphatase 61 U/L (38-126); Blood Urea Nitrogen 29 mg/dl (9-20); Calcium 9.4 mg/dl (8.4-10.2); Carbon Dioxide 27 mmol/L (22-30); Chloride 106 mmol/L (98-107); Estimated Creatinine Clearance 39 ml/min; Glucose 136 mg/dl (70-99); Potassium 4.7 mmol/L (3.5-5.1); Sodium 141 mmol/L (135-145); Total Bilirubin 1.7 mg/dl (0.2-1.3); Total Protein 7.1 g/dl (6.3-8.2); eGFR 50.18
[2024-11-09 11:15] LABS: Urine Albumin 2+ (Neg - Trace); Urine Bilirubin Negative (Negative); Urine Character Clear (Clear); Urine Color Yellow; Urine Glucose 4+ (Negative); Urine Ketone Negative (Negative); Urine Leukocyte Negative (Negative); Urine Nitrite Negative (Negative); Urine Occult Blood Negative (Negative); Urine Urobilinogen Negative (Neg - 1+)
[2024-11-09 11:24] LABS: Urine Red Blood Cell 0-2 /HPF (0-2); Urine Squamous Cell 0-2 /LPF (Few); Urine White Cell 0-2 /HPF (0-5)
[2024-11-09 12:05] LABS: Lipase > 4000 U/L (23-300)
--- NOTE | 2024-11-09 12:26 | HPS.HSE ---
Family Physician
-
Family Physician: Sen Hines
Chief Complaint
-
abdominal pain
History of Present Illness
84-year-old male past medical history of atrial fibrillation, CAD, hypertension, hyperlipidemia, arthritis/rheumatism presenting with right upper quadrant/epigastric abdominal pain since last night. No fevers or chills or vomiting or diarrhea.
He started Jardiance on October 15.
Does not drink alcohol. Former smoker. Denies history of gallstones.
He was admitted in May for acute pancreatitis after endoscopic ultrasound and pancreatic biopsy. Pancreatic biopsy showed benign, precancerous.
Medical History
Past Medical History
Past Medical History: Reports Other (atrial fibrillation, CAD, hypertension, hyperlipidemia, arthritis/rheumatism)
Past Surgical History: Reports None
Social History
Tobacco: Former Smoker
Alcohol: Occasional
Drug: None
Family History
Family History: Not pertinent
Allergies / Home Medications
Allergies reflects when Allergies were last updated in [facility].
Home Medications with original date entered in [facility]
Allergy/Medication List:
Allergies
Allergy/AdvReac Type Severity Reaction Status Date / Time
Penicillins Allergy Rash as a Verified 05/24/24 07:06
child
Home Medications
duloxetine 20 mg capsule,delayed release 40 mg PO DAILY Pain 07/29/21
metformin 500 mg tablet 500 mg PO BID Diabetes 08/02/21
felodipine 10 mg tablet,extended release 24 hr 5 mg PO DAILY Blood Pressure 12/01/23
losartan 25 mg tablet 25 mg PO DAILY Blood Pressure 12/01/23
pantoprazole 40 mg tablet,delayed release 40 mg PO BID Gastrointestinal Issue 12/01/23
therapeutic multivitamin 1 tab PO DAILY Supplement 12/01/23
lactobacillus combination no.4 3 billion cell capsule (Probiotic) 3,000 mmu cells PO DAILY 05/24/24
rivaroxaban 20 mg tablet (Xarelto) 20 mg PO QPM Blood Clot Prevention/Tx 05/24/24
atorvastatin 80 mg tablet (Lipitor) 80 mg PO HS 11/09/24
calcium 315 mg (as citrate)-vitamin D3 6.25 mcg (250 unit) tablet (Citracal + Vitamin D Maximum) 1 tab PO DAILY 11/09/24
empagliflozin 10 mg tablet (Jardiance) 10 mg PO DAILY 11/09/24
meclizine 25 mg tablet 25 mg PO DAILY PRN dizziness 11/09/24
Review of Systems
-
History Source: Patient
A 12 point ROS was completed and negative except as noted: Yes
Constitutional: Reports No Symptoms
EENT: Reports No Symptoms
Respiratory: Reports No Symptoms
Cardiac: Reports No Symptoms
Abdomen/GI: Reports See HPI
: Reports No Symptoms
Musculoskeletal: Reports No Symptoms
Skin: Reports No Symptoms
Neurological: Reports No Symptoms
Endocrine: Reports No Symptoms
Hematologic/Lymphatic: Reports No Symptoms
Psych: Reports No Symptoms
Physical Exam
Vital Signs
Vital Signs
Temp Pulse Resp BP Pulse Ox
97.0 F 93 21 159/92 94
11/09/24 10:08 11/09/24 11:30 11/09/24 11:30 11/09/24 11:00 11/09/24 11:30
Physical Exam
General: Well Developed, Well Nourished and No Apparent Distress
HEENT: NormoCephalic, Moist mucous membranes and Atraumatic
Respiratory: Clear
Cardiac: S1/S2 and Regular Rhythm; No Murmur or Rub
GI: Soft, Non Distended, Normal Bowel Sounds and Tender (RUQ/epigastric ); No Organomegaly
Rectal: Deferred by Provider
Musculoskeletal: No Clubbing, No Cyanosis and No Edema
Skin: No Rash
Neuro: Nonfocal/grossly intact
Laboratory Results
-
11/09/24 10:04
11/09/24 10:04
Laboratory Results
Total Bilirubin 1.7 mg/dl (0.2-1.3) H 11/09/24 10:04
AST 35 U/L (17-59) 11/09/24 10:04
ALT 32 U/L (0-50) 11/09/24 10:04
Alkaline Phosphatase 61 U/L (38-126) 11/09/24 10:04
Lipase > 4000 U/L (23-300) H* 11/09/24 10:04
Data Reviewed
-
Lab Data: Labs Reviewed by me
Old Records: Reviewed
Impression/Plan
-
IMPRESSION:
PLAN:
# Acute pancreatitis secondary to recent initiation of Jardiance
-CT report pending
-N.p.o.
-Lipase greater than 4000
- IV fluids
- Zofran, Dilaudid
- Hold Jardiance
#JOSE prerenal
-IV fluids
History of pancreatitis after endoscopic ultrasound with pancreatic biopsy
- Biopsy results showed precancerous lesion
Type 2 diabetes
- Hold Jardiance, metformin
- Insulin sliding scale
Paroxymal Atrial fibrillation
- Currently in A-fib
- Continue Xarelto
CAD
GERD
-continue protonix
Essential hypertension
- Continue felodipine, losartan
Hyperlipidemia
Chronic arthritis/rheumatism
- Continue duloxetine
Former smoker
Full code
DVT prophylaxis�Xarelto
N.p.o.
--- NOTE | 2024-11-09 12:51 | ED.GENMED ---
History of Present Illness
General
Chief Complaint: Abdominal Pain
Time Seen by Provider: 11/09/24 09:59
History of Present Illness
History of Present Illness:
Complaining of sudden onset of mid abdominal pain. No radiation of the back. Started hour prior to ER arrival. No fever or chills. History of pancreatitis. Feels similar.
Past History
Past History
ED Past Medical History: CAD, GERD, HTN, Hypercholesterolemia, Psychiatric and Other (arely)
ED Past Surgical History: Cardiac (angioplasty) and Tonsilectomy
Social History
Tobacco: Former smoker
Alcohol: None
Drug: None
Personal:
Living: with family
Phy Exam
Physical Exam
Physical Exam:
GENERAL: Alert and oriented in no apparent distress
EYE: Orbits normal.
NECK: Supple, no significant adenopathy.
ENT: Pharynx without erythema
CARDIAC: Mildly irregular. No murmur
LUNGS: Clear breath sounds,normal
ABDOMEN: Soft, mild epigastric tenderness. No rebound or guarding no mass or hernia
NEUROLOGICAL: Alert and oriented , grossly non-focal
SKIN: Warm and dry, no rash or lesion, no discoloration, skin intact.
MUSCULOSKELETAL: No edema,no deformity.Good color
PSYCH: Normal and appropriate interaction.
Course
Orders/Labs/Results
Orders:
Orders
11/09/24 10:04
Complete Blood Count/With Diff Urgent
Comprehensive Metabolic Panel Urgent
Lipase Urgent
Comment: LIPASE ADDED ON BY FLOOR 10:40AM 11-09-24
Urinalysis Reflex To Culture Urgent
Date Specimen was Collected: 11/09/24
Time Specimen was Collected: 09:59
Urine Microscopic Reflex Cult Urgent
11/09/24 10:37
IV Insert/Care/Rem.- Treatment PRN
0.9% Sodium Chloride 1000 ml [Nss] 1,000 ml IV BOLUS
Morphine Sulfate 4 mg IV NOW STA
11/09/24 10:38
Electrocardiogram (*1) Stat
Reason for Study: Abdominal Pain
CT Abd/Pel (IV only)-DH only Urgent
Comment:
Reason For Exam: Mid abdominal pain/history of pancreatitis
EKG- Treatment ONCE
11/09/24 10:39
Add On- LAB Urgent
Tests Added?: lipase
11/09/24 12:23
Admit/Transfer Patient As Directed
Co-Sign Provider:
Level of Care: Inpatient admission
Assign to:: Telemetry
Physician / Group: [email or web address]
Diagnosis: acute pancreatitis
Reason for Telemetry: Arrhythmia
Date to Stop Telemetry: 11/12/24
Time to Stop Telemetry: 11:00
Reason for Hospitalization: acute pancreatitis
Expected length of stay greater than two midnights?: Yes
ELOS- Estimated Length of Stay in days: 2
I certify the patient meets the requirements for IP care: Yes
PRN Pain Medication Management As Directed
May give lesser potent ordered pain med per pt: Yes
preference::
Protocol:: Medication orders for pain may be administered in a
manner that supports deferring to patient preference
when the pt is:
- Requesting an ordered lesser potent pain medication.
Least to most potent pain medications are defined
as: acetaminophen < NSAID < tramadol < opioids
(morphine, oxycodone, hydromorphone).
- Requesting a lesser dose of the same medication IF
ORDERED.
- Requesting a less intrusive route of administration
if both routes are prescribed by the provider (PO <
IV).
11/09/24 12:24
Code Status As Directed
Resuscitation Status: Full Code
11/12/24 11:00
DC Protocol for Telemetry ONCE
Abnormal Lab Results
11/09/24
10:04
RBC 4.34 L 10^6/uL
(4.70-6.10)
MPV 10.8 H fL
(7.4-10.4)
BUN 29 H mg/dl
(9-20)
Creatinine 1.4 H mg/dL
(0.7-1.3)
Glucose 136 H mg/dl
(70-99)
Total Bilirubin 1.7 H mg/dl
(0.2-1.3)
Lipase > 4000 H* U/L
(23-300)
Urine Glucose 4+ A
(Negative)
Urine Albumin (Reflex) 2+ A
(Neg - Trace)
11/09/24 10:04
11/09/24 10:04
Vital Signs
Initial and Last Documented VS:
Initial Vital Signs
Pulse Resp Pulse Ox
56 14 95
11/09/24 09:59 11/09/24 09:59 11/09/24 09:59
Last Documented Vital Signs
Temp Pulse Resp BP Pulse Ox
97.0 F 68 25 128/105 94
11/09/24 10:08 11/09/24 12:30 11/09/24 12:30 11/09/24 12:13 11/09/24 12:30
*Radiology
Radiology exam reviewed: radiology read reviewed (Mild fluid around the gallbladder.)
*Pulse Oximetry
Patient hypoxic: no
*EKG
Interpreted by ED Provider?: Yes
Interpretation: abnormal
Comparison EKG: changes noted
Heart Rate: 73
Rate: normal
Rhythm: atrial flutter
Twilight: normal axis
Interval: normal interval
QRS Pattern: normal QRS
Ischemia: non-specific ST changes
*Critical Care Note
Total Time (30-74mins, 75-104mins- exclusive of procedures): Not Applicable
Data Reviewed
Review of Other/Old Records Reveals: Labs, Records, Radiology Studies, Testing and Discharge Summary
ED Attending Note
-
Portions of this chart may have been created with voice recognition software.� Occasional wrong word or��sound alike� substitutions may have occurred due to the inherent limitations of voice recognition software.
Discharge Plan
Departure
Patient Disposition: Admit
Date of Disposition: 11/09/24
Time of Disposition: 12:06
Presentation/result/management discussed w/ accepting MD/DO: Hospitalist
Discharge Problem:
Acute pancreatitis, Atrial flutter
Prescriptions:
No Action
duloxetine 20 MG capsule,delayed release(DR/EC)
40 mg PO DAILY
metformin 500 MG tablet
500 mg PO DAILY
therapeutic multivitamin Tablet
1 tab PO DAILY
losartan 25 mg Tablet
25 mg PO DAILY
pantoprazole 40 mg tablet,delayed release (DR/EC)
40 mg PO BID
felodipine 10 MG tablet extended release 24 hr
5 mg PO DAILY
Xarelto 20 mg Tablet
20 mg PO QPM
Jardiance 10 mg Tablet
10 mg PO DAILY
atorvastatin [Lipitor] 80 mg Tablet
80 mg PO HS
calcium citrate-vitamin D3 [Citracal + D Maximum] 315 mg-6.25 mcg (250 unit) Tablet
1 tab PO DAILY
Visbiome 112.5 billion cell Capsule
1 cap PO DAILY
Referrals:
Sen Hines MD [Family Provider] -
Interventions
Interventions:
*Risk Screen - Suicide Last Done: 11/09/24 10:08
*General Assessment Last Done: 11/09/24 10:08
*Neglect/Abuse Screening Last Done: 11/09/24 10:08
*ED- Fall Risk Assessment Last Done: 11/09/24 10:08
*ED COVID-19 Vaccine History Last Done: 11/09/24 10:08
CU-Phyope-Ikvecbktmr Assessment Last Done: 11/09/24 10:08
Discharge Date and Time
Print Language: BENGALI
[2024-11-09] MEDS: XARELTO 20 MG PO (18:04)
[2024-11-09 18:16] LABS: Glucose - Point of Care 97 mg/dl (70-99)
[2024-11-09] MEDS: PROTONIX 40 MG PO (19:51)
[2024-11-09] MEDS: DILAUDID 0.5 MG IV (22:56)
[2024-11-10] VITALS (9 sets, daily range): BP systolic 138–201; BP diastolic 70–98
[2024-11-10 00:15] LABS: Glucose - Point of Care 100 mg/dl (70-99)
[2024-11-10 05:56] LABS: Glucose - Point of Care 94 mg/dl (70-99)
[2024-11-10] MEDS: NSS 1000 IV ×3 (06:15→20:01)
[2024-11-10 06:20] LABS: % Basophils 0.6 % (0-2); % Eosinophils 2.5 % (0-6); % Immature Granulocytes 0.3 % (0-0.5); % Lymphocytes 20.9 % (20.5-51.1); % Monocytes 7.7 % (1.7-9.3); Absolute Eosinophils 0.2 10^3/uL (0-0.7); Absolute Lymphocytes 1.5 10^3/uL (1.2-3.4); Absolute Monocytes 0.6 10^3/uL (0.1-0.6); Absolute Neutrophils 4.9 10^3/uL (1.4-6.5); Hematocrit 36.5 % (39.0-52.0); Hemoglobin 12.2 g/dL (13.0-18.0); Mean Corp Hgb Conc. 33.4 g/dL (33.0-37.0); Mean Corpuscular Volume 92.9 fL (80.0-94.0); Mean Platelet Volume 10.4 fL (7.4-10.4); Nucleated Red Blood Cells % 0 % (-); Platelet Count 173 10^3/uL (130-400); Red Blood Cell Count 3.93 10^6/uL (4.70-6.10); Red Cell Dist. Width 14.1 % (11.5-14.5); White Blood Cell Count 7.2 10^3/uL (4.8-10.8)
[2024-11-10 06:48] LABS: ALT (SGPT) 32 U/L (0-50); AST (SGOT) 30 U/L (17-59); Albumin 3.9 g/dl (3.5-5.0); Alkaline Phosphatase 69 U/L (38-126); Blood Urea Nitrogen 24 mg/dl (9-20); Calcium 8.3 mg/dl (8.4-10.2); Carbon Dioxide 26 mmol/L (22-30); Chloride 108 mmol/L (98-107); Estimated Creatinine Clearance 39 ml/min; Glucose 89 mg/dl (70-99); Sodium 142 mmol/L (135-145); Total Bilirubin 2.3 mg/dl (0.2-1.3); Total Protein 6.2 g/dl (6.3-8.2); eGFR 50.18
--- NOTE | 2024-11-10 07:37 | W.PN.HOSP.TC ---
Today's Communication/Plan
-
-Continue IV Fluids
-Consider start oral taking if patient has no abdominal pain with decreased level of lipase
Assessment / Plan
Assessment / Plan
Impression: 84 years old male with a past medical history of pancreatitis in May 2024 after having an endoscopic ultrasound and pancreatic biopsy which showed a benign lesion who presented ER with abdominal pain on 11/09/2024. His lipase level
was found elevated over than 4000 but his abdominal/pelvis CT were not remarkable for obstructing choledocholithiasis.
PLAN:
# Acute pancreatitis possibly secondary drug induced
-No hx of gallbladder stone-No alcohol- TG level 73 on 05/25/2024
-New medication: Started on Jardiance on 10/15/24
-CT unremarkable
-Admission Lipase> 4000-Decreased to 1336
-Continue IV fluids
-N.p.o. for now
-Zofran for nausea as needed
-Dilaudid for pain as needed
#JOSE prerenal
-IV fluids
- Follow BMP
History of pancreatitis after endoscopic ultrasound with pancreatic biopsy
- Biopsy results showed precancerous lesion
Type 2 diabetes
- Hold Jardiance, metformin
- Insulin sliding scale
Paroxymal Atrial fibrillation
- Monitor telemetry
- Continue Xarelto
#Essential hypertension
- Continue felodipine, losartan
#CAD
#GERD
-Continue Protonix
#Hyperlipidemia
- Hold statin for now
#Chronic arthritis/rheumatism
- Continue duloxetine
Former smoker
Full code
DVT prophylaxis�Xarelto
N.p.o.
Anticipated Discharge: 24 - 48 hours
Subjective/Interval History
-
Date of Service: November 10, 2024
The patient reported improvement with his pain and denies any abdominal pain since this morning after given pain medication.
Objective Data
-
Labs:
Laboratory Results
11/10/24
06:06
WBC 7.2
Hgb 12.2 L
Hct 36.5 L
Plt Count 173
Sodium 142
Potassium 4.0
Chloride 108 H
Carbon Dioxide 26
BUN 24 H
Creatinine 1.4 H
Glucose 89
Calcium 8.3 L
Total Bilirubin 2.3 H
AST 30
ALT 32
Alkaline Phosphatase 69
Vital Signs:
Vital Signs
Temp Pulse Resp BP Pulse Ox
98.3 F 52 16 152/79 95
11/10/24 03:00 11/10/24 03:00 11/10/24 03:00 11/10/24 03:00 11/10/24 03:00
I&O
11/09/24 11/10/24 11/11/24
06:59 06:59 06:59
Intake Total 1800 / 1800
Balance 1800 / 1800
Review of Systems
-
History Source: Patient
Constitutional: Reports No Symptoms
EENT: Reports No Symptoms Reported
Respiratory: Reports No Symptoms
Cardiac: Reports No Symptoms
Abdomen/GI: Reports No Symptoms
Genitourinary: Reports No Symptoms
Musculoskeletal: Reports No Symptoms
Skin: Reports No Symptoms
Neuro: Reports No Symptoms
Physical Exam
-
General: Well Developed, Well Nourished, Comfortable and Conversant
HEENT: Normocephalic and Atraumatic
Respiratory: Clear to Auscultation
Cardiac: Regular Rhythm and S1/S2
GI: Soft, Nontender and Nondistended
Musculoskeletal: No Clubbing, No Cyanosis and No Edema
Skin: Warm
Neuro: Awake, Alert, Oriented and AO x 3
Psych: Calm
[2024-11-10] MEDS: COZAAR 25 MG PO (08:57)
[2024-11-10] MEDS: THERAGRAN 1 TABLET PO (08:57)
[2024-11-10] MEDS: PROTONIX 40 MG PO ×2 (08:57→20:00)
[2024-11-10] MEDS: VISBIOME 1 CAP PO (08:57)
[2024-11-10 09:39] LABS: Glycohemoglobin (HgbA1c) 6.6 % (4.0-5.6)
[2024-11-10 09:41] LABS: Lipase 1336 U/L (23-300)
--- NOTE | 2024-11-10 10:39 | CM ---
Patient seen bedside.
IA completed.
Per patient, he has been here multiple times for dx pancreatitis.
patient lives with spouse in a 1 story apartment with no steps.
patient drives and is independent with adls.
Patient had [facility] int he past, and has cane and RW from prior injury.
Patient denies homecare needs at this time.
PCP: Dr Hines
Pharmacy: [facility]
Plan: home no needs anticipated.
[2024-11-10] MEDS: PLENDIL EXTENDED RELEASE 5 MG PO (11:02)
[2024-11-10] MEDS: CYMBALTA DELAYED RELEASE 40 MG PO (11:02)
--- NOTE | 2024-11-10 11:30 | CON.GI ---
Addendum entered and electronically signed by Pamela Mendiola MD 11/10/24 15:11:
I saw and examined the patient.
The FLOOR SCRAPER's note was reviewed and I agree with the note.
-- Recurrent acute pancreatitis -lipase on admission over 4000. CT abdomen/pelvis with IV contrast done did not comment about pancreatic inflammation. possible Etiology - Medication induced ( recently started on jardiance ) versus pancreatic head
cyst ( underwent EUS/FNA with 05/2024 - details below ) versus etc.
plan
Clinically feeling better today. Tolerating clear liquid diet. Will advance to full liquid diet
If tolerating full liquid diet okay to advance to low-fat diet tomorrow
Recommend to keep his MRI appointment as outpatient in December for surveillance of pancreatic IPMN
will check IgG4
will follow
Original Note:
Consultation
-
Date/Time Consultation Requested: 11/10/24 1030
Date/Time Consultation Performed: 11/10/24 1130
Requesting Provider: Mariely Stapleton MD
Performing Provider: REBEKAH Gracia, Pamela Mendiola MD
Reason for Consultation: pancreatitis
Medical History
Chief Complaint / HPI
Chief Complaint: Epigastric pain associated with vomiting for 1 day
History of Present Illness:
Patient is an 84-year-old male with past medical history of coronary artery disease, chronic kidney disease, hyperlipidemia, type 2 diabetes mellitus, essential hypertension, Rinaldi's esophagus, prior GI bleed with gastric ulcer, paroxysmal atrial
fibrillation on Xareto and anxiety. He has history of idiopathic acute pancreatitis and cystic pancreatic lesions. He had admission in November 2023 with possible acute gallstone pancreatitis. MRCP was obtained and showed borderline dilation of the
common bile duct with gallbladder sludge noted. Also noted were scattered pancreatic cysts He clinically improved with resolution of his pain. Consideration of possible passage of CBD stone/sludge to explain his symptoms. Pain did not recur�and he
was discharged home to follow-up closely as an outpatient, with both GI and Cardiology as noted with new afib during admission with start of Eliquis.
Pt then completed EUS to eval for sludge with concern for recent GB pancreatitis and follow up on cysts on 05/24/2024 which showed cystic lesion in the head of pancreas measuring 11 x 11 mm with echogenic lesion concerning for possible mural
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 After procedure pt has recurrent acute pancreatitis.� He had a short course of hospitalization
and managed conservatively and was discharged home.� He was seen in follow up with Dr. Rizvi in June. He was feeling improved and recommended 6 month follow up MRI. He now presents with abdominal pain and concern for pancreatitis. Pt only med
change was adding Jardiance in October and admits to decreasing metformin to 1 tablet daily with improved diarrhea.
Pt states after admission with pain meds and IVF he was feeling improved. Pain was 10/10 on admission now 2/10. Pt denies fever, odynophagia, GERD, nausea, vomiting, diarrhea, constipation or rectal bleeding. CT on admission fluid
surrounding gallbladder without cholelithiasis or biliary dilatation with lipase >4000.
Past Medical History
Past Medical History: CAD, GERD, HTN, Hypercholesterolemia, NIDDM and Other (paroxysmal atrial fibrillation, anxiety, CKD, Pancreatic cyst, barretts esophagus, gastric ulcer with prior GI bleed )
Past Surgical History: Orthopedic (Right hip replacement, Left knee surgery)
Social History
Tobacco: Former Smoker (Quit around 37years of age)
Alcohol: Other (occasional drink)
Drug: None
Personal:
Living: With Family
Employment: Retired
Family History
Family History: CAD and Other (no family hx pancreatic problems)
Allergies / Home Medications
Allergy/AdvReac Type Severity Reaction Status Date / Time
Penicillins Allergy Rash as a Verified 05/24/24 07:06
child
�Medication �Instructions �Recorded
duloxetine 20 mg capsule,delayed 40 mg PO DAILY Pain 07/29/21
release
metformin 500 mg tablet 500 mg PO DAILY Diabetes 08/02/21
felodipine 10 mg tablet,extended 5 mg PO DAILY Blood Pressure 12/01/23
release 24 hr
losartan 25 mg tablet 25 mg PO DAILY Blood Pressure 12/01/23
pantoprazole 40 mg tablet,delayed 40 mg PO BID Gastrointestinal Issue 12/01/23
release
therapeutic multivitamin 1 tab PO DAILY Supplement 12/01/23
rivaroxaban 20 mg tablet (Xarelto) 20 mg PO QPM Blood Clot 05/24/24
Prevention/Tx
Lactobac no.2-Bifidobac no.1-S. 1 cap PO DAILY Gastrointestinal 11/09/24
thermo 112.5 billion cell capsule Issue
(Visbiome)
atorvastatin 80 mg tablet (Lipitor) 80 mg PO HS High Cholesterol 11/09/24
calcium 315 mg (as 1 tab PO DAILY Supplement 11/09/24
citrate)-vitamin D3 6.25 mcg (250
unit) tablet (Citracal + Vitamin D
Maximum)
empagliflozin 10 mg tablet 10 mg PO DAILY Diabetes 11/09/24
(Jardiance)
latanoprost 0.005 % eye drops 1 drp ophthalmic (eye) HS 11/09/24
Review of Systems
-
History Source: Patient and Family
Constitutional: Reports No Symptoms
EENT: Reports No Symptoms
Cardiac: Reports No Symptoms
Abdomen/GI: Reports Abdominal Pain
: Reports Frequency
Musculoskeletal: Reports No Symptoms
Skin: Reports No Symptoms
Neurological: Reports No Symptoms
Endocrine: Reports No Symptoms
Hematologic/Lymphatic: Reports No Symptoms
Vital Signs
Temp Pulse Resp BP Pulse Ox
98.6 F 54 18 174/83 99
11/10/24 11:00 11/10/24 11:00 11/10/24 11:00 11/10/24 11:00 11/10/24 11:00
Physical Exam
Exam
General: Well Developed, Well Nourished and No Apparent Distress
HEENT: Normocephalic and Anicteric
Respiratory: Clear
Cardiac: Regular Rhythm
GI: Soft, Non Distended and Normal Bowel Sounds
Genito-urinary: No Costovertebral Tender
Musculoskeletal: No Clubbing and No Cyanosis
Skin: Warm and Dry
Neuro: Awake, Alert and AO x 3
Psych: Calm
Results
WBC 7.2 10^3/uL (4.8-10.8) 11/10/24 06:06
Hgb 12.2 g/dL (13.0-18.0) L 11/10/24 06:06
Hct 36.5 % (39.0-52.0) L 11/10/24 06:06
MCV 92.9 fL (80.0-94.0) 11/10/24 06:06
Plt Count 173 10^3/uL (130-400) 11/10/24 06:06
Absolute Neuts (auto) 4.9 10^3/uL (1.4-6.5) 11/10/24 06:06
Sodium 142 mmol/L (135-145) 11/10/24 06:06
Potassium 4.0 mmol/L (3.5-5.1) 11/10/24 06:06
Chloride 108 mmol/L (98-107) H 11/10/24 06:06
Carbon Dioxide 26 mmol/L (22-30) 11/10/24 06:06
BUN 24 mg/dl (9-20) H 11/10/24 06:06
Creatinine 1.4 mg/dL (0.7-1.3) H 11/10/24 06:06
Calcium 8.3 mg/dl (8.4-10.2) L 11/10/24 06:06
Total Bilirubin 2.3 mg/dl (0.2-1.3) H 11/10/24 06:06
AST 30 U/L (17-59) 11/10/24 06:06
ALT 32 U/L (0-50) 11/10/24 06:06
Alkaline Phosphatase 69 U/L (38-126) 11/10/24 06:06
Lipase 1336 U/L (23-300) H* 11/10/24 06:06
Diagnostic Image Results:
PRIOR GI WORKUP:
11/09/24 CT Abd/Pel (IV only)-DH only
1. There is minimal fluid surrounding the gallbladder however the wall is thin and there is no cholelithiasis or biliary distention.
2. There are bilateral renal cysts much larger on the left
3. There is degenerative disc disease in the lower lumbar spine
05/24/24 CT Chest/abd/pel W Iv Cont
1. There is no evidence of pneumomediastinum
2. There is fluid surrounding the pancreas which suggests pancreatitis.
3. There is thickening along the proximal duodenum. This may be related to recent endoscopy.
MRI/MRCP on 01/2024 - no CBD stone, 13 mm cyst in the head, 18 mm cyst in the neck of panc which are stable/no sig increase in size
---12/02/2023 MRI/MRCP Abdomen: Borderline CBD dilatation without evidence of strictures or filling defects. Hydropic gallbladder with small amount of pericholecystic fluid without discrete gallstones noted. Redemonstration of scattered pancreatic
cystic lesions without suspicious features, slightly increased from prior exam 03/06/2023.� Recommend follow-up MRI/MRCP in 2 years per ACR criteria. Benign appearing renal cysts redemonstrated.
---11/17/2022 EGD 4 mm cratered antrum. Negative H. pylori. Irregular Z-line. Positive Rinaldi's negative dysplasia.
---03/08/2020 MR Abd: Bilateral renal cysts containing thin internal septations. No MRI evidence for thick enhancing internal septation or solid mural nodule in any of the cysts to suggest renal cell carcinoma. Mild bilateral renal cortical volume
loss. 1.7 cm and 1.2 cm cysts in the head of the pancreas containing thin internal septations. Both cysts appear to communicate with the main pancreatic duct. Neither cyst appears to have enlarged since 10/04/2018. Diagnostic possibilities are (1)
intraductal papillary mucinous neoplasm (IPMN) or (2) pancreatic pseudocyst. Small sliding-type hiatal hernia. Mild hepatomegaly.
---[facility] '6-8 years ago' Dr. Galo 'normal'.
Prior GI Procedures:
EUS 05/2024 - no sludge in CBD, cyst in the head of pancreas measuring 11 x 11 mm communicating with PD, echogenic lesion concerning for possible mural nodule versus mucin wall, FNA performed. Second cystic lesion in the neck of pancreas measuring
15 x 11 mm septated, communicating with PD, 1 cc cystic aspirated for analysis.
Cytology -mucinous neoplasm, no HGD seen.
Fluid analysis -CEA 5699, amylase 11k, glucose 2.8,
Genetic mutation study - KRAS low clonality, GNAS -ve, statistically indolent
EGD: [facility] 01/2023 - Esophageal mucosal changes secondary to established
Rinaldi's disease. Biopsied.
- Erythematous mucosa in the antrum. Biopsied.
- Normal examined duodenum.
bx neg H pylori but intestinal metaplasia without dysplasia
EGD: [facility] 11/2022 - Z-line irregular, in the lower third of the
esophagus. Biopsied.
- Non-bleeding gastric ulcer with no stigmata of
bleeding. Biopsied.
- Normal examined duodenum.
bx neg H pylori but intestinal metaplasia without dysplasia
Colonoscopy: ---[facility] '6-8 years ago' Dr. Galo 'normal'.
Assessment / Plan
-
Patient is an 84-year-old male with past medical history of coronary artery disease, chronic kidney disease, hyperlipidemia, type 2 diabetes mellitus, essential hypertension, Rinaldi's esophagus, prior GI bleed with gastric ulcer, paroxysmal atrial
fibrillation on Xarelto and anxiety. He has history of idiopathic acute pancreatitis and cystic pancreatic lesions. He had admission in November 2023 with possible acute gallstone pancreatitis. Pt then completed EUS to eval for sludge with concern for
recent GB pancreatitis and follow up on cysts on 05/24/2024 which showed cystic lesion in the head of pancreas measuring 11 x 11 mm with echogenic lesion concerning for possible mural nodule versus mucin ball.� FNA was performed for further
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 After procedure pt has recurrent acute pancreatitis. Pt recovered well and plan was for MRI in December and now presents with recurrent pancreatitis. CT on
admission fluid surrounding gallbladder without cholelithiasis or biliary dilatation with lipase >4000.
-recurrent pancreatitis
-hx cystic lesions -- per EUS cyst in the head of pancreas measuring 11 x 11 mm communicating with PD, echogenic lesion concerning for possible mural nodule versus mucin wall Second cystic lesion in the neck of pancreas measuring 15 x 11 mm
septated, communicating with PD- cytology mucinous neoplasm
-chronic elevated bilirubin
other med problems:
-CAD
-CKD
-Hyperlipidemia
-DM
-HTN
-rinaldi's esophagus
-afib on Xarelto
-anxiety
PLAN:
Etiology of pancreatitis related to known head of pancreatic cyst vs newly started Jardiance vs other-- Ct on admission without gallstones or ductal dilation
pt feeling much better today
agree with IVF - 150ml/hr
advance diet
pt due for OP MRI in December-- will review timing with Dr. Mendiola if feeling better consider proceeding in December vs if recurrent symptoms during this admission proceed inpatient
will add D bili as pt with chronic elevated bili( ? gilbert's vs other)
family updated
-
-
Thank you for consultation and allowing me to participate in the patient's care. Please call the budget consultant GI physician during the after hours with any questions or concerns.
[2024-11-10 11:55] LABS: Glucose - Point of Care 88 mg/dl (70-99)
--- NOTE | 2024-11-10 12:37 | W.PN.UPDATE ---
Addendum entered and electronically signed by Mariely Gerer MD 11/10/24 12:43:
does not use CPAP- (could not tolerate initially and does not need it now per pt)
Original Note:
Update Note
Progress Note Update
I saw and evaluated the patient. I reviewed the resident�s note and agree with findings and plan as documented in the resident�s note except for changes in my documentation
84-year-old with abdominal pain
CT abdomen and pelvis-minimal fluid surrounding the gallbladder however the wall is thin and no cholelithiasis or biliary distention. There are bilateral renal cysts larger on the left. Degenerative disc disease in the lower lumbar spine.
CVS: S1-S2 normal
Chest: CTA B/L
Abdomen: Soft, NT / Bowel sounds present
Extremities: No edema, normal pulses
# Acute pancreatitis
Lipase greater than 4000 came down to 1336
Patient was recently started on Jardiance. Hold it.
However patient has a history of pancreatitis in the past therefore unclear if this could have contributed or not probably not
Pancreatic cyst-s/p EUS FNA 05/[address] Rizvi-complicated by acute pancreatitis
Also Prior history of idiopathic pancreatitis
Start clears
# Acute kidney injury-likely prerenal
Hold Metformin, Jardiance,Losartan.
IV fluids and follow creatinine
# Type 2 diabetes
Hold metformin and Jardiance
Accu-Cheks and sliding scale coverage
# Paroxysmal atrial fibrillation-continue Xarelto
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
# Hypertension-continue calcium channel wyatt, losartan
# Hyperlipidemia/atherosclerosis-statin
# Chronic arthritis-on duloxetine for pain
# GERD-Snell's esophagus-peptic ulcer disease-PPI
# Gilbert's disease
# Sleep apnea
# Enlarged prostate gland
# Ex-smoker
# DVT prophylaxis-Xarelto
# Full code
Part of this note was created using voice recognition system. Occasional wrong word or��sound alike� substitutions may have inadvertently occurred due to the inherent limitations of voice recognition software. If noted kindly bring it to my
attention for correction.
[2024-11-10 13:30] LABS: Direct Bilirubin 0.4 mg/dl (0.0-0.4)
[2024-11-10 17:23] LABS: Glucose - Point of Care 91 mg/dl (70-99)
[2024-11-10] MEDS: XARELTO 20 MG PO (18:01)
[2024-11-10] MEDS: DILAUDID 0.5 MG IV (19:01)
[2024-11-10] MEDS: ZOFRAN 4 MG IV (19:20)
--- NOTE | 2024-11-10 19:25 | PTCARENOTE ---
Addendum entered by Mariana Jefferson RN 11/10/24 19:41:
Pain has improved after medication given. Patient appears more comfortable.
Original Note:
Patient in 04/14 RLQ abdominal pain, restless and moaning. at bedside. Patient states 'this is the worst pain I have ever had'. IV Dilaudid 0.5mg and IV zofran given as ordered. Will continue to monitor.
[2024-11-10] MEDS: APRESOLINE 5 MG IV (20:48)
[2024-11-10 21:42] LABS: Glucose - Point of Care 100 mg/dl (70-99)
[2024-11-11] MEDS: DILAUDID 0.5 MG IV ×3 (00:06→23:25)
[2024-11-11] MEDS: NSS 1000 IV ×4 (03:01→22:40)
[2024-11-11 03:26] VITALS: BP 145/69
--- NOTE | 2024-11-11 07:00 | W.PN.GI.CBS2 ---
Today's Communication / Plan
-
Please see assessment and plan for details.
Assessment / Plan
-
1. Pancreatitis: Recurrent, likely interstitial, with no markers of severity, overall improving, with likely mild ileus on exam. At this point would continue clear liquids as he had some issues with full liquids last night, though he knows he can
advance if feeling better. Will await morning labs, continue IV fluids and supportive care. Etiology unclear, could have been related to Jardiance as this was new, though has had pancreatitis in the past. IgG4 pending. Outpatient workup already
in place for repeat MRI and follow-up with Dr. Rizvi.
2. Snell's esophagus: Continue PPI.
Subjective
Subjective
Date of Service: November 11, 2024
Patient feeling okay this morning, the did have some increased discomfort last night after full liquids. No flatus or bowel movements yet, no fever chills, vomiting.
Objective
Data Reviewed
Laboratory Data:
Laboratory Results
11/10/24 06:06
11/10/24 06:06
Laboratory Results
Total Bilirubin 2.3 mg/dl (0.2-1.3) H 11/10/24 06:06
AST 30 U/L (17-59) 11/10/24 06:06
ALT 32 U/L (0-50) 11/10/24 06:06
Alkaline Phosphatase 69 U/L (38-126) 11/10/24 06:06
Lipase 1336 U/L (23-300) H* 11/10/24 06:06
Vital Signs and I&O:
Vital Signs
Temp Pulse Resp BP Pulse Ox
98.8 F 67 18 145/69 96
11/11/24 03:26 11/11/24 03:26 11/11/24 03:26 11/11/24 03:26 11/11/24 03:26
I&O
11/10/24 11/11/24 11/12/24
06:59 06:59 06:59
Intake Total 1800 / 1800 2039
Output Total 200 / 200
Balance 1799
Physical Exam
Physical Exam
General: NAD
Abdomen: Few normal bowel sounds, mildly distended though soft, mild epigastric tenderness, no masses or bruits, no ascites
[2024-11-11 07:04] LABS: Glucose - Point of Care 118 mg/dl (70-99)
[2024-11-11 07:10] VITALS: BP 156/77
[2024-11-11 08:05] LABS: Hematocrit 34.5 % (39.0-52.0); Hemoglobin 11.5 g/dL (13.0-18.0); Mean Corp Hgb Conc. 33.3 g/dL (33.0-37.0); Mean Corpuscular Hgb 31.3 pg (27.0-31.0); Mean Corpuscular Volume 93.8 fL (80.0-94.0); Mean Platelet Volume 11.1 fL (7.4-10.4); Platelet Count 171 10^3/uL (130-400); Red Blood Cell Count 3.68 10^6/uL (4.70-6.10); Red Cell Dist. Width 14.3 % (11.5-14.5); White Blood Cell Count 16.8 10^3/uL (4.8-10.8)
--- NOTE | 2024-11-11 08:10 | W.PN.HOSP.TC ---
Addendum entered and electronically signed by Mariely Greer MD 11/11/24 15:57:
I saw and evaluated the patient. I reviewed the resident�s note and agree with findings and plan as documented in the resident�s note except for changes in my documentation
84-year-old with abdominal pain
CT abdomen and pelvis-minimal fluid surrounding the gallbladder however the wall is thin and no cholelithiasis or biliary distention. There are bilateral renal cysts larger on the left. Degenerative disc disease in the lower lumbar spine.
CVS: S1-S2 normal
Chest: CTA B/L
Abdomen: Soft, NT / Bowel sounds present
Extremities: No edema, normal pulses
# Acute pancreatitis
Lipase greater than 4000 came down to 1336 to 1532 today
Patient was recently started on Jardiance. Hold it.
However patient has a history of pancreatitis in the past therefore unclear if this could have contributed or not probably not
Pancreatic cyst-s/p EUS FNA 05/[address] Rizvi-complicated by acute pancreatitis
Also Prior history of idiopathic pancreatitis
He was on full liquids which has been changed to clears
LFTs up today patient had 2 episodes of abdominal pain last night
MRI/MRCP ordered to rule out obstruction if has 1 may need ERCP
# Acute kidney injury-likely prerenal
No retention on bladder scan
Hold Metformin, Jardiance,Losartan.
IV fluids and follow creatinine
# Type 2 diabetes-hemoglobin A1c 6.6 indicates good control
Hold metformin and Jardiance
Accu-Cheks and sliding scale coverage
# Paroxysmal atrial fibrillation-continue Xarelto
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
# Hypertension-continue calcium channel wyatt, losartan
# Hyperlipidemia/atherosclerosis-statin
# Chronic arthritis-on duloxetine for pain
# GERD-Snell's esophagus-peptic ulcer disease-PPI
# Gilbert's disease
# Sleep apnea- Not on PAP machine
# Enlarged prostate gland
# Ex-smoker
# DVT prophylaxis-Xarelto
# Full code
Discussed with and other family member at bedside. They had a lot of questions. We discussed about etiologies of elevated LFTs and pancreatitis and management
Discussed with nursing
Discussed with GI
Part of this note was created using voice recognition system. Occasional wrong word or��sound alike� substitutions may have inadvertently occurred due to the inherent limitations of voice recognition software. If noted kindly bring it to my
attention for correction.
Original Note:
Today's Communication/Plan
-
-Continue IV fluids
-Follow lipase levels and IgG4
-MRCP pending to be obtained
-Continue clear liquids with a plan to advance it tomorrow
Assessment / Plan
Assessment / Plan
Impression: 84 years old male with a past medical history of pancreatitis in May 2024 after having an endoscopic ultrasound and pancreatic biopsy which showed a benign lesion who presented ER with abdominal pain on 11/09/2024. His lipase level
was found elevated over than 4000 but his abdominal/pelvis CT were not remarkable for obstructing choledocholithiasis.
PLAN:
# Acute pancreatitis possibly secondary drug induced vs choledocholithiasis
-No hx of gallbladder stone-No alcohol- TG level 73 on 05/25/2024
-New medication: Started on Jardiance on 10/15/24
-CT unremarkable
-Admission Lipase> 4000///Decreased to 1336 on 11.10//Increased to 1532 on 11.11
-AST elevated to 105, ALT to 98 and ALP 149
-MRCP pending to be obtained
-GI on board
-IgG 4 pending
-Continue IV fluids
-Clear Liquids for now-will advance based on patient`s toleration
-Zofran for nausea as needed
-Dilaudid for pain as needed
#JOSE prerenal
-IV fluids
- Follow BMP
History of pancreatitis after endoscopic ultrasound with pancreatic biopsy
- Biopsy results showed precancerous lesion
Type 2 diabetes
- Hold Jardiance, metformin
- Insulin sliding scale
Paroxymal Atrial fibrillation
- Monitor telemetry
- Continue Xarelto
#Essential hypertension
- Continue felodipine, losartan
#CAD
#GERD
-Continue Protonix
#Hyperlipidemia
- Hold statin for now
#Chronic arthritis/rheumatism
- Continue duloxetine
# Gilbert's disease
# Sleep apnea
# Enlarged prostate gland
# Ex-smoker
Full code
DVT prophylaxis�Xarelto
Anticipated Discharge: 24 - 48 hours
Subjective/Interval History
-
Date of Service: November 11, 2024
Patient reports mild abdominal pain this morning. She had some mild-severe pain yesterday with full liquids diet. His diet was switched to clear liquids.
Objective Data
-
Labs:
Laboratory Results
11/11/24
06:30
WBC 16.8 H
Hgb 11.5 L
Hct 34.5 L
Plt Count 171
Sodium Pending
Potassium Pending
Chloride Pending
Carbon Dioxide Pending
BUN Pending
Creatinine Pending
Glucose Pending
Calcium Pending
Total Bilirubin Pending
AST Pending
ALT Pending
Alkaline Phosphatase Pending
Vital Signs:
Vital Signs
Temp Pulse Resp BP Pulse Ox
98.2 F 54 18 156/77 93
11/11/24 07:10 11/11/24 07:10 11/11/24 07:10 11/11/24 07:10 11/11/24 07:10
I&O
11/10/24 11/11/24 11/12/24
06:59 06:59 06:59
Intake Total 1800 / 1800 2039 / 2039
Output Total 200 / 200
Balance 1800 / 1800 1840 / 1840
Review of Systems
-
History Source: Patient
EENT: Reports No Symptoms Reported
Respiratory: Reports No Symptoms
Cardiac: Reports No Symptoms
Abdomen/GI: Reports Abdominal Pain
Genitourinary: Reports No Symptoms
Musculoskeletal: Reports No Symptoms
Skin: Reports No Symptoms
Neuro: Reports No Symptoms
Physical Exam
-
General: Well Developed, Well Nourished, No Apparent Distress and Conversant
HEENT: Normocephalic and Atraumatic
Respiratory: Clear to Auscultation
Cardiac: Regular Rhythm and S1/S2
GI: Soft, Nontender (mild tenderness on the right mid abdominal area) and Nondistended
Musculoskeletal: No Clubbing, No Cyanosis and No Edema
Skin: Warm
Neuro: Awake, Alert, Oriented and AO x 3
Psych: Calm
[2024-11-11 08:41] LABS: ALT (SGPT) 98 U/L (0-50); AST (SGOT) 105 U/L (17-59); Albumin 3.3 g/dl (3.5-5.0); Alkaline Phosphatase 149 U/L (38-126); Blood Urea Nitrogen 19 mg/dl (9-20); Calcium 8.3 mg/dl (8.4-10.2); Carbon Dioxide 28 mmol/L (22-30); Chloride 108 mmol/L (98-107); Estimated Creatinine Clearance 39 ml/min; Glucose 126 mg/dl (70-99); Lipase 1532 U/L (23-300); Potassium 4.5 mmol/L (3.5-5.1); Sodium 142 mmol/L (135-145); Total Bilirubin 5.1 mg/dl (0.2-1.3); Total Protein 5.8 g/dl (6.3-8.2); eGFR 50.18
[2024-11-11] MEDS: PROTONIX 40 MG PO ×2 (09:09→20:15)
[2024-11-11] MEDS: VISBIOME 1 CAP PO (09:09)
[2024-11-11] MEDS: PLENDIL EXTENDED RELEASE 5 MG PO (09:09)
[2024-11-11] MEDS: CYMBALTA DELAYED RELEASE 40 MG PO (09:09)
[2024-11-11] MEDS: THERAGRAN 1 TABLET PO (09:10)
[2024-11-11 11:07] VITALS: BP 144/72
[2024-11-11 11:49] LABS: Glucose - Point of Care 114 mg/dl (70-99)
[2024-11-11 15:22] VITALS: BP 165/79
[2024-11-11 18:18] LABS: Glucose - Point of Care 102 mg/dl (70-99)
[2024-11-11] MEDS: XARELTO 20 MG PO (18:30)
[2024-11-11 19:44] VITALS: BP 144/69
[2024-11-11 23:23] LABS: Glucose - Point of Care 85 mg/dl (70-99)
[2024-11-11 23:52] VITALS: BP 157/79
[2024-11-12] VITALS (8 sets, daily range): BP systolic 153–175; BP diastolic 72–82
[2024-11-12 01:32] LABS: Glucose - Point of Care 85 mg/dl (70-99)
[2024-11-12 05:16] LABS: Glucose - Point of Care 72 mg/dl (70-99)
--- NOTE | 2024-11-12 05:37 | PTCARENOTE ---
Patient's blood sugar 72 from 85. he is on IVF NS at 150. Yasmany WELCH made aware. No new orders at this time
[2024-11-12] MEDS: NSS 1000 IV ×3 (05:42→18:09)
[2024-11-12 06:03] LABS: Glucose - Point of Care 78 mg/dl (70-99)
[2024-11-12 07:09] LABS: Hematocrit 31.7 % (39.0-52.0); Hemoglobin 10.7 g/dL (13.0-18.0); Mean Corp Hgb Conc. 33.8 g/dL (33.0-37.0); Mean Corpuscular Hgb 31.5 pg (27.0-31.0); Mean Corpuscular Volume 93.2 fL (80.0-94.0); Mean Platelet Volume 11.1 fL (7.4-10.4); Platelet Count 144 10^3/uL (130-400); Red Cell Dist. Width 14.5 % (11.5-14.5); White Blood Cell Count 8.3 10^3/uL (4.8-10.8)
[2024-11-12 08:07] LABS: ALT (SGPT) 84 U/L (0-50); AST (SGOT) 67 U/L (17-59); Albumin 3.1 g/dl (3.5-5.0); Alkaline Phosphatase 147 U/L (38-126); Blood Urea Nitrogen 20 mg/dl (9-20); Calcium 8.1 mg/dl (8.4-10.2); Carbon Dioxide 22 mmol/L (22-30); Chloride 111 mmol/L (98-107); Estimated Creatinine Clearance 46 ml/min; Glucose 70 mg/dl (70-99); Lipase 421 U/L (23-300); Potassium 3.9 mmol/L (3.5-5.1); Sodium 142 mmol/L (135-145); Total Bilirubin 4.5 mg/dl (0.2-1.3); Total Protein 5.6 g/dl (6.3-8.2); eGFR > 60.00
--- NOTE | 2024-11-12 08:40 | W.PN.GI.CBS2 ---
Addendum entered and electronically signed by Wili Puente MD 11/12/24 11:07:
Patient seen and examined, agree inspectors note. Patient feeling better today, still some pain but decreased, no vomiting, fever chills. All labs improving, MRI without necrosis, obvious CBD stone or mass, no significant change in pancreatic cyst.
1. Pancreatitis: Recurrent, interstitial, still unclear cause, though given acute increase in LFTs and pain with significant resolution still possible passed CBD stone. At this point will await other labs as ordered, clear liquids today, continue
supportive care. Will follow with Dr. Rizvi as an outpatient.
Addendum entered and electronically signed by REBEKAH Chery 11/12/24 10:06:
updated
Original Note:
Today's Communication / Plan
-
Etiology of pancreatitis related to known head of pancreatic cyst vs newly started Jardiance vs other--
CT and MRI as noted -- MRI no finding of pancreatitis and stable pancreatic cyst
will review imaging with Dr. Puente
pt labs improving but still with pain
ok for ice chips and sips clear
cont IVF
pt due for OP MRI in December-- will need to decide if pt needs to proceed vs cancel with recent MR complted
some chronic bilirubin elevation with normal D tito may have component of Gilbert's
cont PPI with hx ed's
remain on Xarelto with hx afib
Assessment / Plan
-
Patient is an 84-year-old male with past medical history of coronary artery disease, chronic kidney disease, hyperlipidemia, type 2 diabetes mellitus, essential hypertension, Rinaldi's esophagus, prior GI bleed with gastric ulcer, paroxysmal atrial
fibrillation on Xarelto and anxiety. He has history of idiopathic acute pancreatitis and cystic pancreatic lesions. He had admission in November 2023 with possible acute gallstone pancreatitis. Pt then completed EUS to eval for sludge with concern for
recent GB pancreatitis and follow up on cysts on 05/24/2024 which showed cystic lesion in the head of pancreas measuring 11 x 11 mm with echogenic lesion concerning for possible mural nodule versus mucin ball.� FNA was performed for further
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 After procedure pt has recurrent acute pancreatitis. Pt recovered well and plan was for MRI in December and now presents with recurrent pancreatitis. CT on
admission fluid surrounding gallbladder without cholelithiasis or biliary dilatation with lipase >4000. Pt initially felt improved but risk
11/11/24 MR Abdomen W/o & W Contrast/MRCP
No convincing acute process in the abdomen. No convincing MR evidence for acute pancreatitis.
Redemonstration of pancreatic cystic lesions without suspicious features, similar to priors. Recommend follow-up MRI/MRCP abdomen without and with gadolinium contrast in 2 years per ACR criteria.
-recurrent pancreatitis
-hx cystic lesions -- per EUS cyst in the head of pancreas measuring 11 x 11 mm communicating with PD, echogenic lesion concerning for possible mural nodule versus mucin wall Second cystic lesion in the neck of pancreas measuring 15 x 11 mm
septated, communicating with PD- cytology mucinous neoplasm
-chronic elevated bilirubin- ? underlying gilbert's
other med problems:
-CAD
-CKD
-Hyperlipidemia
-DM
-HTN
-rinaldi's esophagus
-afib on Xarelto
-anxiety
PLAN:
Etiology of pancreatitis related to known head of pancreatic cyst vs newly started Jardiance vs other--
CT and MRI as noted -- MRI no finding of pancreatitis and stable pancreatic cyst
will review imaging with Dr. Puente
pt labs improving but still with pain
ok for ice chips and sips clear
cont IVF
pt due for OP MRI in December-- will need to decide if pt needs to proceed vs cancel with recent MR complted
some chronic bilirubin elevation with normal D tito may have component of Gilbert's
cont PPI with hx ed's
remain on Xarelto with hx afib
Subjective
Subjective
Date of Service: November 12, 2024
NPO, still with abdominal pain tenderness today - 2 recent episodes with severe pain both triggered after eating solids
Objective
Data Reviewed
Laboratory Data:
Laboratory Results
11/12/24 06:00
11/12/24 06:00
Laboratory Results
Total Bilirubin 4.5 mg/dl (0.2-1.3) H 11/12/24 06:00
AST 67 U/L (17-59) H 11/12/24 06:00
ALT 84 U/L (0-50) H 11/12/24 06:00
Alkaline Phosphatase 147 U/L (38-126) H 11/12/24 06:00
Lipase 421 U/L (23-300) H 11/12/24 06:00
Vital Signs and I&O:
Vital Signs
Temp Pulse Resp BP Pulse Ox
98.2 F 52 18 160/80 94
11/12/24 08:28 11/12/24 08:28 11/12/24 08:28 11/12/24 08:28 11/12/24 08:28
I&O
11/11/24 11/12/24 11/13/24
06:59 06:59 06:59
Intake Total 2040 / 2040 1650 / 1650
Output Total 200 / 200 500 / 500
Balance 1840 / 1840 1150 / 1150
Physical Exam
Physical Exam
HEENT: Anicteric and Moist mucous membranes
Cardiology: Normal Sinus Rhythm
Pulmonary: Clear
GI: Soft, Non Distended and Tender (epigastric pain)
Extremities: No Edema
Neuro: Non Focal
[2024-11-12] MEDS: DILAUDID 0.5 MG IV (10:10)
[2024-11-12] MEDS: PLENDIL EXTENDED RELEASE 5 MG PO (10:11)
[2024-11-12] MEDS: PROTONIX 40 MG PO ×2 (10:11→20:41)
[2024-11-12] MEDS: THERAGRAN 1 TABLET PO (10:11)
[2024-11-12] MEDS: VISBIOME 1 CAP PO (10:11)
[2024-11-12] MEDS: CYMBALTA DELAYED RELEASE 40 MG PO (10:11)
[2024-11-12 12:08] LABS: Glucose - Point of Care 89 mg/dl (70-99)
--- NOTE | 2024-11-12 13:22 | W.PN.HOSP.TC ---
Addendum entered and electronically signed by Mariely Greer MD 11/12/24 13:30:
Correction-will restart losartan
Original Note:
Today's Communication/Plan
-
Clears
Assessment / Plan
Assessment / Plan
84-year-old with abdominal pain
CT abdomen and pelvis-minimal fluid surrounding the gallbladder however the wall is thin and no cholelithiasis or biliary distention. There are bilateral renal cysts larger on the left. Degenerative disc disease in the lower lumbar spine.
CVS: S1-S2 normal
Chest: CTA B/L
Abdomen: Soft, NT / Bowel sounds present
Extremities: No edema, normal pulses
# Acute pancreatitis
A lot of pain earlier today, none when I saw him
Lipase greater than 4000 came down to 400s range
Patient was recently started on Jardiance. Hold it.
However patient has a history of pancreatitis in the past therefore unclear if this could have contributed or not probably not
Pancreatic cyst-s/p EUS FNA 05/[address] Rizvi-complicated by acute pancreatitis
Also Prior history of idiopathic pancreatitis
MRI-no convincing evidence of acute process in the abdomen. No pancreatitis. Report demonstration of pancreatic cystic lesions without suspicious features.
Start clears if okay with GI
? Passed a stone?
Likely needs EUS as outpatient again
# Acute kidney injury-likely prerenal
Hold Metformin, Jardiance,Losartan.
Resolved
# Type 2 diabetes
Hold metformin and Jardiance
May restart metformin
Accu-Cheks and sliding scale coverage
# Paroxysmal atrial fibrillation-continue Xarelto
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
# Hypertension-continue calcium channel wyatt, losartan
# Hyperlipidemia/atherosclerosis-statin
# Chronic arthritis-on duloxetine for pain
# GERD-Snell's esophagus-peptic ulcer disease-PPI
# Gilbert's disease
# Sleep apnea-does not use CPAP
# Enlarged prostate gland
# Ex-smoker
# DVT prophylaxis-Xarelto
# Full code
Part of this note was created using voice recognition system. Occasional wrong word or��sound alike� substitutions may have inadvertently occurred due to the inherent limitations of voice recognition software. If noted kindly bring it to my
attention for correction.
Discussed with at bedside
Discussed with nursing
Anticipated Discharge: Within 24 hours
Subjective/Interval History
-
Date of Service: November 12, 2024
Objective Data
-
Labs:
Laboratory Results
11/12/24
06:00
WBC 8.3
Hgb 10.7 L
Hct 31.7 L
Plt Count 144
Sodium 142
Potassium 3.9
Chloride 111 H
Carbon Dioxide 22
BUN 20
Creatinine 1.2
Glucose 70
Calcium 8.1 L
Total Bilirubin 4.5 H
AST 67 H
ALT 84 H
Alkaline Phosphatase 147 H
Vital Signs:
Vital Signs
Temp Pulse Resp BP Pulse Ox
98.8 F 62 18 157/72 98
11/12/24 12:12 11/12/24 12:12 11/12/24 12:12 11/12/24 12:12 11/12/24 12:12
I&O
11/11/24 11/12/24 11/13/24
06:59 06:59 06:59
Intake Total 2040 / 2040 1650 / 1650
Output Total 200 / 200 500 / 500 350 / 350
Balance 1840 / 1840 1150 / 1150 -350 / -350
[2024-11-12] MEDS: COZAAR 25 MG PO (14:21)
[2024-11-12 17:00] LABS: Glucose - Point of Care 110 mg/dl (70-99)
[2024-11-12] MEDS: NOVOLOG FLEXPEN-LOW RESISTANCE SC (17:41)
[2024-11-12] MEDS: XARELTO 20 MG PO (18:09)
[2024-11-12 21:48] LABS: Glucose - Point of Care 91 mg/dl (70-99)
[2024-11-13] VITALS (7 sets, daily range): BP systolic 125–179; BP diastolic 62–85
[2024-11-13] MEDS: NSS 1000 IV ×3 (00:53→13:23)
[2024-11-13] MEDS: APRESOLINE 5 MG IV ×2 (03:57→16:31)
[2024-11-13] MEDS: DILAUDID 0.25 MG IV (04:12)
[2024-11-13 04:42] LABS: IgG Subclass 4 15 mg/dL (1-123)
--- NOTE | 2024-11-13 05:30 | PTCARENOTE ---
Pts BP 179/81- house LINUX SERVER ADMINISTRATOR notified, given 5 mg IV hydralazine per order at 0400. rechecked at 0530 179/83 [place] LINUX SERVER ADMINISTRATOR aware no new orders.
[2024-11-13 07:04] LABS: ALT (SGPT) 73 U/L (0-50); AST (SGOT) 64 U/L (17-59); Albumin 3.3 g/dl (3.5-5.0); Alkaline Phosphatase 176 U/L (38-126); Blood Urea Nitrogen 15 mg/dl (9-20); Calcium 8.3 mg/dl (8.4-10.2); Carbon Dioxide 26 mmol/L (22-30); Chloride 105 mmol/L (98-107); Estimated Creatinine Clearance 55 ml/min; Glucose 94 mg/dl (70-99); Potassium 3.5 mmol/L (3.5-5.1); Sodium 142 mmol/L (135-145); Total Bilirubin 3.7 mg/dl (0.2-1.3); Total Protein 5.9 g/dl (6.3-8.2); eGFR > 60.00
[2024-11-13 07:31] LABS: Glucose - Point of Care 94 mg/dl (70-99)
[2024-11-13] MEDS: NOVOLOG FLEXPEN-LOW RESISTANCE SC ×2 (07:59→16:40)
--- NOTE | 2024-11-13 09:32 | W.PN.GI.CBS2 ---
Today's Communication / Plan
-
Please see assessment and plan for details.
Assessment / Plan
-
1. Pancreatitis: Acute, recurrent, unclear etiology, though overall improving. Repeat MRI without obvious CBD stone or stricture, stable cyst, LFTs continue to improve. Given his severe acute pain and rapid rise in LFTs with improvement passed
CBD stone is possible, though again evaluation in the past for gallstones and CBD stone was negative. At this point will advance to full liquid diet, continue IV fluids and supportive care. Hopefully able to advance diet further tomorrow.
Subjective
Subjective
Date of Service: November 13, 2024
Patient feeling overall better today, still some mild discomfort, tolerated clears without difficulty, had several bowel movements, decreased abdominal distention and improved pain. No fevers or chills overnight.
Objective
Data Reviewed
Laboratory Data:
Laboratory Results
11/12/24 06:00
11/13/24 05:41
Laboratory Results
Total Bilirubin 3.7 mg/dl (0.2-1.3) H 11/13/24 05:41
AST 64 U/L (17-59) H 11/13/24 05:41
ALT 73 U/L (0-50) H 11/13/24 05:41
Alkaline Phosphatase 176 U/L (38-126) H 11/13/24 05:41
Lipase 421 U/L (23-300) H 11/12/24 06:00
Vital Signs and I&O:
Vital Signs
Temp Pulse Resp BP Pulse Ox
98.2 F 50 18 168/78 95
11/13/24 07:30 11/13/24 07:30 11/13/24 07:30 11/13/24 07:30 11/13/24 07:30
I&O
11/12/24 11/13/24 11/14/24
06:59 06:59 06:59
Intake Total 1650 / 1650 4380 / 4380
Output Total 500 / 500 4380 / 4380 900 / 900
Balance 1150 / 1150 0 / 0 -900 / -900
Physical Exam
Physical Exam
General: NAD
Abdomen: normal bowel sounds, soft, mild epigastric tenderness, no masses or bruits, no ascites
[2024-11-13] MEDS: CYMBALTA DELAYED RELEASE 40 MG PO (09:43)
[2024-11-13] MEDS: COZAAR 25 MG PO (09:44)
[2024-11-13] MEDS: THERAGRAN 1 TABLET PO (09:44)
[2024-11-13] MEDS: VISBIOME 1 CAP PO (09:44)
[2024-11-13] MEDS: PLENDIL EXTENDED RELEASE 5 MG PO ×2 (09:44→17:20)
[2024-11-13] MEDS: PROTONIX 40 MG PO ×2 (09:44→21:09)
[2024-11-13 13:27] LABS: Glucose - Point of Care 152 mg/dl (70-99)
[2024-11-13] MEDS: NOVOLOG FLEXPEN-LOW RESISTANCE 1 UNITS SC (13:27)
[2024-11-13 16:37] LABS: Glucose - Point of Care 89 mg/dl (70-99)
[2024-11-13] MEDS: XARELTO 20 MG PO (17:08)
--- NOTE | 2024-11-13 17:08 | W.PN.HOSP.TC ---
Today's Communication/Plan
-
watch on full liquid diet
Assessment / Plan
Assessment / Plan
84-year-old with abdominal pain
CT abdomen and pelvis-minimal fluid surrounding the gallbladder however the wall is thin and no cholelithiasis or biliary distention. There are bilateral renal cysts larger on the left. Degenerative disc disease in the lower lumbar spine.
CVS: S1-S2 normal
Chest: CTA B/L
Abdomen: Soft, NT / Bowel sounds present
Extremities: No edema, normal pulses
# Acute pancreatitis
A lot of pain last night, none when I saw him
Lipase greater than 4000 came down to 421
Patient was recently started on Jardiance. Hold it.
However patient has a history of pancreatitis in the past therefore unclear if this could have contributed or not probably not
Pancreatic cyst-s/p EUS FNA 05/[address] Rizvi-complicated by acute pancreatitis
Also Prior history of idiopathic pancreatitis
MRI-no convincing evidence of acute process in the abdomen. No pancreatitis. Report demonstration of pancreatic cystic lesions without suspicious features.
On Full Liquids now
? Passed a stone?
SOD? Does he need ERCP ?
Likely needs EUS as outpatient again
# Acute kidney injury-likely prerenal
Resolved
# Type 2 diabetes
Hold metformin and Jardiance
sugars stable off meds now
Accu-Cheks and sliding scale coverage
# Paroxysmal atrial fibrillation-continue Xarelto
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
# Hypertension-continue calcium channel wyatt, losartan. Increase Felodipine. Add PRN HYdralazine.
# Hyperlipidemia/atherosclerosis-statin
# Chronic arthritis-on duloxetine for pain
# GERD-Snell's esophagus-peptic ulcer disease-PPI
# Gilbert's disease
# Sleep apnea-does not use CPAP
# Enlarged prostate gland
# Ex-smoker
# DVT prophylaxis-Xarelto
# Full code
Discussed with at bedside
Discussed with nursing
Spoke to pharmacy
' findings as below for causes of pancreatitis from the pt's home med:
Post market incidence but very rare:
Atorvastatin
Duloxetine
Empagliflozin
pantoprazole (but used as part of tx for pancreatitis with anti inflammatory effects protecting the upper GI mucosa)
Xarelto (very rare but case report in 2021 showed rivaroxaban induced acute pancreatitis)
Losartan - rare but possible cause of acute pancreatitis only after excluding other causes or hx
Metformin - rare, post market incidence, likely secondary to cumulated dose from renal impairment or lactic acidosis
Reviewed this with patient and in detail. I suggested to hold off on Jardiance for now until he finishes his EUS. If the reason found may be restarted. Note that his first episode of pancreatitis happened while he was not on Jardiance. As
above a lot of his medicines have pancreatitis as a side effect.
Part of this note was created using voice recognition system. Occasional wrong word or��sound alike� substitutions may have inadvertently occurred due to the inherent limitations of voice recognition software. If noted kindly bring it to my
attention for correction.
Anticipated Discharge: 24 - 48 hours
Subjective/Interval History
-
Date of Service: November 13, 2024
Objective Data
-
Labs:
Laboratory Results
11/13/24
05:41
Sodium 142
Potassium 3.5
Chloride 105
Carbon Dioxide 26
BUN 15
Creatinine 1.0
Glucose 94
Calcium 8.3 L
Total Bilirubin 3.7 H
AST 64 H
ALT 73 H
Alkaline Phosphatase 176 H
Vital Signs:
Vital Signs
Temp Pulse Resp BP Pulse Ox
98.2 F 53 18 174/81 95
11/13/24 15:10 11/13/24 16:31 11/13/24 15:10 11/13/24 16:31 11/13/24 15:10
I&O
11/12/24 11/13/24 11/14/24
06:59 06:59 06:59
Intake Total 1650 / 1650 4380 / 4380 480 / 480
Output Total 500 / 500 4380 / 4380 2150 / 2150
Balance 1150 / 1150 0 / 0 -1670 / -1670
[2024-11-13] MEDS: NSS IV (17:13)
[2024-11-13 21:00] LABS: Glucose - Point of Care 143 mg/dl (70-99)
--- NOTE | 2024-11-14 06:21 | W.PN.GI.CBS2 ---
Today's Communication / Plan
-
Please see assessment and plan for details.
Assessment / Plan
-
1. Pancreatitis: Acute, recurrent, unclear etiology, though overall improving. Repeat MRI without obvious CBD stone or stricture, stable cyst, LFTs continue to improve. Given his severe acute pain and rapid rise in LFTs with improvement passed
CBD stone is possible, though again evaluation in the past for gallstones and CBD stone was negative. Clinically much improved. Will advance to low fat diet, and if tolerates is okay to DC from GI standpoint pending morning labs. Will set up
outpatient follow-up with Dr. Rizvi in 1 month.
Subjective
Subjective
Date of Service: November 14, 2024
Patient feeling much better, no significant abdominal pain, no vomiting, having bowel movements, some loose stool though no fevers or chills, feeling much better. Tolerated full liquid diet without difficulty.
Objective
Data Reviewed
Laboratory Data:
Laboratory Results
Total Bilirubin 3.7 mg/dl (0.2-1.3) H 11/13/24 05:41
AST 64 U/L (17-59) H 11/13/24 05:41
ALT 73 U/L (0-50) H 11/13/24 05:41
Alkaline Phosphatase 176 U/L (38-126) H 11/13/24 05:41
Lipase 421 U/L (23-300) H 11/12/24 06:00
Vital Signs and I&O:
Vital Signs
Temp Pulse Resp BP Pulse Ox
97.7 F 56 16 135/62 98
11/13/24 23:32 11/13/24 23:32 11/13/24 23:32 11/13/24 23:32 11/13/24 23:32
I&O
11/12/24 11/13/24 11/14/24
06:59 06:59 06:59
Intake Total 1650 / 1650 4380 / 4380 1110 / 1110
Output Total 500 / 500 4380 / 4380 2150 / 2150
Balance 1150 / 1150 0 / 0 -1040 / -1040
Physical Exam
Physical Exam
General: NAD
Abdomen: normal bowel sounds, soft, no tenderness, no masses or bruits, no ascites
--- NOTE | 2024-11-14 07:09 | W.PN.HOSP.TC ---
Addendum entered and electronically signed by Cornelio Vicente MD 11/14/24 16:10:
I saw and evaluated the patient. I reviewed the resident�s note and agree with findings and plan as documented in the resident�s note.
1. Acute pancreatitis -no clear etiology although clinically suspected a passed stone versus Jardiance (few case reports). Improved at this stage with lipase close normal. Patient to be discharged home on low-fat diet with plan for follow-up with
Dr. Rizvi in office.
2. Acute transaminitis -suspected passed stone. CTAP and MRI abdomen did not show any other clear explanation.
More than 30 minutes spent in discharge including
Final examination of the patient
Summarizing hospital stay
Instructions for continuing care to all relevant caregivers
Preparation of discharge records, prescriptions, and referral forms
Total time spent (in minutes): 38 mins
Original Note:
Today's Communication/Plan
-
-Start low fat diet
-Discharge plan if the patient does not develop any abdominal pain with his advance diet
-Follow CMP
Assessment / Plan
Assessment / Plan
84-year-old male presented to ER with abdominal pain and admitted with a diagnosis of pancreatitis. Patient reports having auditory episodes of pancreatitis in the past.
# Acute pancreatitis
-CT abdomen and pelvis-minimal fluid surrounding the gallbladder however the wall is thin and no cholelithiasis or biliary distention. There are bilateral renal cysts larger on the left. Degenerative disc disease in the lower lumbar spine.
MRI abdomen: No convincing acute process in the abdomen. No convincing MR evidence for acute pancreatitis.
-Lipase greater than 4000b at admission-dropped down to 421
-GI on board-started on low fat diet this am
-Recommendation to have a follow-up in a month with Dr. Rizvi by GI
-Patient was recently started on Jardiance on October 15 -On hold
-History of pancreatitis in the past (2 epiosdes)-one idiopathic --second episode developed following EUS FNA to assess Pancreatic cyst
-Home med was reviewed with pharmacy:
Post market incidence but very rare:
Atorvastatin
Duloxetine
Empagliflozin
pantoprazole (but used as part of tx for pancreatitis with anti inflammatory effects protecting the upper GI mucosa)
Xarelto (very rare but case report in 2021 showed rivaroxaban induced acute pancreatitis)
Losartan - rare but possible cause of acute pancreatitis only after excluding other causes or hx
Metformin - rare, post market incidence, likely secondary to cumulated dose from renal impairment or lactic acidosis
#Elevated LFTs
-Passed a CBD stone? No evidence with imaging
-Trending down
- He has seen WNL/ALT trended down to 69
- Total bilirubin decreased to 3
# Acute kidney injury-likely prerenal
-Resolved
- Creatinine 1.0 this a.m.
# Type 2 diabetes
-Hold metformin and Jardiance
-Accu-Cheks and sliding scale coverage
# Paroxysmal atrial fibrillation-continue Xarelto
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
# Hypertension-continue calcium channel wyatt, losartan. Increase Felodipine. Add PRN HYdralazine.
# Hyperlipidemia/atherosclerosis-statin
# Chronic arthritis-on duloxetine for pain
# GERD-Snell's esophagus-peptic ulcer disease-PPI
# Gilbert's disease
# Sleep apnea-does not use CPAP
# Enlarged prostate gland
# Ex-smoker
# DVT prophylaxis-Xarelto
# Full code
Anticipated Discharge: Today
Subjective/Interval History
-
Date of Service: November 14, 2024
Patient reports no pain on his abdominal area this morning after having his advance diet with low-fat diet
Objective Data
-
Labs:
Laboratory Results
11/14/24
06:30
WBC Pending
Hgb Pending
Hct Pending
Plt Count Pending
Sodium Pending
Potassium Pending
Chloride Pending
Carbon Dioxide Pending
BUN Pending
Creatinine Pending
Glucose Pending
Calcium Pending
Total Bilirubin Pending
AST Pending
ALT Pending
Alkaline Phosphatase Pending
Vital Signs:
Vital Signs
Temp Pulse Resp BP Pulse Ox
97.7 F 56 16 135/62 98
11/13/24 23:32 11/13/24 23:32 11/13/24 23:32 11/13/24 23:32 11/13/24 23:32
I&O
11/13/24 11/14/24 11/15/24
06:59 06:59 06:59
Intake Total 4380 / 4380 1110 / 1110
Output Total 4380 / 4380 2150 / 2150
Balance 0 / 0 -1040 / -1040
Review of Systems
-
History Source: Patient
EENT: Reports No Symptoms Reported
Respiratory: Reports No Symptoms
Cardiac: Reports No Symptoms
Abdomen/GI: Reports No Symptoms
Breast: Reports No Symptoms
Genitourinary: Reports No Symptoms
Musculoskeletal: Reports No Symptoms
Skin: Reports No Symptoms
Neuro: Reports No Symptoms
Physical Exam
-
General: Well Developed, Well Nourished, Comfortable and Conversant
HEENT: Normocephalic and Atraumatic
Respiratory: Clear to Auscultation
Cardiac: Regular Rhythm and S1/S2
GI: Soft, Nontender and Nondistended
Musculoskeletal: No Clubbing, No Cyanosis and No Edema
Skin: Warm
Neuro: Awake, Alert, Oriented and AO x 3
[2024-11-14 07:22] LABS: Glucose - Point of Care 127 mg/dl (70-99)
[2024-11-14 07:30] VITALS: BP 154/86
[2024-11-14] MEDS: NOVOLOG FLEXPEN-LOW RESISTANCE SC ×2 (07:51→12:28)
[2024-11-14] MEDS: VISBIOME 1 CAP PO (07:52)
[2024-11-14] MEDS: THERAGRAN 1 TABLET PO (07:52)
[2024-11-14] MEDS: PROTONIX 40 MG PO (07:52)
[2024-11-14] MEDS: COZAAR 25 MG PO (07:52)
[2024-11-14] MEDS: CYMBALTA DELAYED RELEASE 40 MG PO (07:52)
[2024-11-14] MEDS: PLENDIL EXTENDED RELEASE 10 MG PO (07:52)
[2024-11-14] MEDS: FLUSH (NSS) 1 FLUSH IV (07:53)
[2024-11-14 07:56] LABS: Hematocrit 39.7 % (39.0-52.0); Hemoglobin 13.9 g/dL (13.0-18.0); Mean Corpuscular Volume 88.6 fL (80.0-94.0); Mean Platelet Volume 10.9 fL (7.4-10.4); Platelet Count 203 10^3/uL (130-400); Red Blood Cell Count 4.48 10^6/uL (4.70-6.10); Red Cell Dist. Width 14.1 % (11.5-14.5); White Blood Cell Count 6.4 10^3/uL (4.8-10.8)
[2024-11-14 08:07] LABS: ALT (SGPT) 69 U/L (0-50); AST (SGOT) 57 U/L (17-59); Albumin 4.1 g/dl (3.5-5.0); Alkaline Phosphatase 201 U/L (38-126); Blood Urea Nitrogen 13 mg/dl (9-20); Calcium 8.8 mg/dl (8.4-10.2); Carbon Dioxide 27 mmol/L (22-30); Chloride 105 mmol/L (98-107); Estimated Creatinine Clearance 55 ml/min; Glucose 127 mg/dl (70-99); Potassium 3.6 mmol/L (3.5-5.1); Sodium 143 mmol/L (135-145); Total Protein 6.8 g/dl (6.3-8.2); eGFR > 60.00
[2024-11-14 09:58] VITALS: BMI 26.7
[2024-11-14 11:08] VITALS: BP 103/63
[2024-11-14 11:46] LABS: Glucose - Point of Care 212 mg/dl (70-99)
--- NOTE | 2024-11-14 11:47 | CM ---
MD entered order for discharge.
Spoke with pt he said he was ready for discharge.
IMM reviewed pt agrees with discharge.
Danielle will drive him home.
Offered VN he declined .
PLAN Home no needs
--- NOTE | 2024-11-14 14:12 | W.DCSUMMARY ---
Discharge Summary
Discharge Data
Date of Admission: 11/09/24
Date of Discharge: 11/14/24
-
Pending Results: No
Hospital Course
Disposition : Home
Primary care physician : Sen Hines MD
Principal Discharge diagnosis : Acute pancreatitis, transaminitis, acute kidney injury
Chronic Discharge diagnosis : Type II DM, paroxysmal atrial fibrillation, coronary artery disease, hypertension, hyperlipidemia, chronic hepatitis, GERD, tubular disease, sleep apnea, enlarged prostate gland.
Hospital Course :
# Acute pancreatitis: The patient has a past medical history of pancreatitis episodes in the past and the last one was in May 2024 while having an endoscopic ultrasound and pancreatic cyst biopsy. Patient presented to ER with abdominal pain on
11/09/2024 for which he was obtained an abdominal CT which was not remarkable. His lab results was significant for elevated lipase level over than 4000. Following his admission, patient was started on IV fluids and he was kept NPO. His lab results
showed increased level of AST and ALT following the day of his admission. For that reason, the patient was consulted to GI. GI team evaluated the patient and MRCP and IgG4 was ordered which were not remarkable. The patient's abdominal pain
gradually improved and patient was placed on clear liquids and following he was started on full liquids. He could not tolerate full liquids for the first try and it was switched to clear liquids again. The following days, his diet advanced
gradually and he was able to tolerate low-fat diet this morning without abdominal pain. Additionally, his LFTs levels trended down. He was recommended to see Dr. Rizvi, his guitar instructor in a month to have a follow-up. His recent new
medication, Jardiance was discontinued due to possibility of medication induced pancreatitis.
# Acute kidney injury: It was resolved after receiving IV fluids and his creatinine level come back to his normal baseline. The patient was recommended to see his PCP in a week to have a follow-up with BMP and CBC. It was recommended to see his
PCP to discuss to restart his Jardiance medication or to start another medication to manage his diabetes.
Important imaging findings :
Abdomen/Pelvis CT 11/09/24:
FINDINGS:
There are minimal linear foci in the lung bases.
The liver and spleen are unremarkable. There is no pancreatic mass. There are no gallstones. There is minimal fluid surrounding the gallbladder. The wall of the gallbladder does not appear thickened. There is no adrenal mass. There is bilateral
renal excretion. There are large cysts on the left, unchanged. There is a small right renal cyst.
There is air and stool in the colon. There are no distended loops of small bowel. There are prominent calcifications along the aorta but no aortic aneurysm.
There are bilateral hip prostheses. This causes streak artifact limiting evaluation of the bladder. There is no definite bladder mass or calculus. There is no definite free fluid in the pelvis.
There is degenerative disc disease and L3/4, L4/5 and L5/S1 with vacuum disc phenomena.
IMPRESSION:
1. There is minimal fluid surrounding the gallbladder however the wall is thin and there is no cholelithiasis or biliary distention.
2. There are bilateral renal cysts much larger on the left
3. There is degenerative disc disease in the lower lumbar spine
Electronically signed by Silvino Mock MD, 11/09/2024 12:23 PM
Abdomen MRI 11/11/2024
ABDOMEN:
LIVER: Normal morphology. No significant difference of hepatic signal intensity between in and out of phase images. There is no focal hepatic parenchymal abnormality.
BILE DUCTS: There is no intra or extrahepatic biliary ductal dilatation.
GALLBLADDER: Hydropic, similar to priors. No evidence for cholelithiasis or acute cholecystitis. Trace pericholecystic fluid.
PANCREAS: Redemonstration of scattered cystic lesions measuring up to 1.9 cm without overt mural nodularity/enhancement or definite connection with the underlying nondilated main pancreatic duct. No peripancreatic edema. No evidence of pancreatic
necrosis.
SPLEEN: Within normal limits.
ADRENAL GLANDS: Unremarkable.
KIDNEYS: Benign appearing bilateral cysts redemonstrated. No hydronephrosis.
BOWEL: Normal caliber.
PERITONEUM: No ascites or free air. No fluid collection.
VASCULATURE: No abdominal aortic aneurysm. Major abdominal veins are patent.
RETROPERITONEUM: Within normal limits.
LYMPH NODES: Within normal limits.
ABDOMINAL WALL: Unremarkable.
MUSCULOSKELETAL: No suspicious osseous abnormality.
IMPRESSION:
No convincing acute process in the abdomen. No convincing MR evidence for acute pancreatitis.
Redemonstration of pancreatic cystic lesions without suspicious features, similar to priors. Recommend follow-up MRI/MRCP abdomen without and with gadolinium contrast in 2 years per ACR criteria.
Discharge Plan
-
Patient Disposition: Home (Routine Discharge)
Discharge Diagnosis/Procedures: Acute pancreatitis
Condition: Fair
Diet: Low Fat
Activity: As tolerated
Driving Restrictions: As prior to admission
Bathing Restrictions: OK to Shower
Referrals:
Christian Rizvi MD [Active] - in one month
Sen Hines MD [Family Provider] - in one week
Prescriptions:
Continued
duloxetine 20 MG capsule,delayed release(DR/EC)
40 mg PO DAILY
metformin 500 MG tablet
500 mg PO DAILY
therapeutic multivitamin Tablet
1 tab PO DAILY
losartan 25 mg Tablet
25 mg PO DAILY
pantoprazole 40 mg tablet,delayed release (DR/EC)
40 mg PO BID
felodipine 10 MG tablet extended release 24 hr
5 mg PO DAILY
Xarelto 20 mg Tablet
20 mg PO QPM
atorvastatin [Lipitor] 80 mg Tablet
80 mg PO HS
calcium citrate-vitamin D3 [Citracal + D Maximum] 315 mg-6.25 mcg (250 unit) Tablet
1 tab PO DAILY
Visbiome 112.5 billion cell Capsule
1 cap PO DAILY
latanoprost 0.005 % Drops
1 drp OPHTHALMIC (EYE) HS
Rx Instructions:
Left
Held
Jardiance 10 mg Tablet
10 mg PO DAILY
Hold Instructions: Resume on 11/21/24.
Discharge Orders:
Discharge Patient (As Directed); Ordered 11/14/24
Ordered By: Cornelio Vicente
Discharge Date and Time
Discharge Date/Time: 11/14/24 12:48
Print Language: CITIZEN OF [place]
== END 2024-11-14 12:48 | disposition home or self-care (01) | DRG 439 ==
LOC: 4 EAST ACU 13:30
PROVIDERS: Hospitalist; Internal Medicine Gastroenterology; Student in an Organized Health Care Education/Training Program; ADMITTING PHYSICIAN Hospitalist; ATTENDING PHYSICIAN Hospitalist; CONSULT PHYSICIAN Internal Medicine Gastroenterology; EMERGENCY PHYSICIAN Emergency Medicine; FAMILY PHYSICIAN Family Medicine
DX: K85.90 Acute pancreatitis without necrosis or infection, unspecified (principal); K82.1 Hydrops of gallbladder; N17.9 Acute kidney failure, unspecified; Z87.891 Personal history of nicotine dependence; K86.1 Other chronic pancreatitis; I48.0 Paroxysmal atrial fibrillation; Z79.01 Long term (current) use of anticoagulants; I25.10 Atherosclerotic heart disease of native coronary artery without angina pectoris; K21.9 Gastro-esophageal reflux disease without esophagitis; N18.9 Chronic kidney disease, unspecified; I12.9 Hypertensive chronic kidney disease with stage 1 through stage 4 chronic kidney disease, or unspecified chronic kidney disease; M19.90 Unspecified osteoarthritis, unspecified site; M79.0 Rheumatism, unspecified; E78.00 Pure hypercholesterolemia, unspecified; K22.70 Barrett's esophagus without dysplasia; F41.9 Anxiety disorder, unspecified
CPT/HCPCS: 74177; 74183; 80053; 81003; 81015; 82248; 82787; 82962; 83036; 83690; 85025; 85027; 93005; 96361; 96374; 99285; A9575; Q9967

== ENCOUNTER 2024-12-20 20:52 | Inpatient (IN) | payer MEDICARE, SELFPAY ==
[2024-12-20 17:54] VITALS: BMI 26.5
[2024-12-20 18:06] LABS: % Basophils 0.6 % (0-2); % Eosinophils 2.7 % (0-6); % Immature Granulocytes 0.4 % (0-0.5); % Monocytes 5.5 % (1.7-9.3); % Neutrophils 63.8 % (42.2-75.2); Absolute Basophils 0.1 10^3/uL (0-0.2); Absolute Eosinophils 0.3 10^3/uL (0-0.7); Absolute Lymphocytes 2.7 10^3/uL (1.2-3.4); Absolute Monocytes 0.6 10^3/uL (0.1-0.6); Absolute Neutrophils 6.5 10^3/uL (1.4-6.5); Hematocrit 42.3 % (39.0-52.0); Hemoglobin 14.4 g/dL (13.0-18.0); Mean Corpuscular Hgb 30.7 pg (27.0-31.0); Mean Corpuscular Volume 90.2 fL (80.0-94.0); Mean Platelet Volume 10.6 fL (7.4-10.4); Nucleated Red Blood Cells % 0 % (-); Platelet Count 216 10^3/uL (130-400); Red Blood Cell Count 4.69 10^6/uL (4.70-6.10); Red Cell Dist. Width 13.5 % (11.5-14.5); White Blood Cell Count 10.2 10^3/uL (4.8-10.8)
[2024-12-20] MEDS: NSS 500 IV (18:58)
[2024-12-20] MEDS: DILAUDID 0.5 MG IV (18:59)
[2024-12-20 19:00] VITALS: BP 133/66
--- NOTE | 2024-12-20 19:37 | ED.GENMED ---
History of Present Illness
General
Chief Complaint: Abdominal Pain
Source: patient, records and spouse
Time Seen by Provider: 12/20/24 18:34
History of Present Illness
History of Present Illness:
Note:
CHIEF COMPLAINT(S)
Abdominal pain.
HISTORY OF PRESENT ILLNESS
The patient is an 84-year-old male with a history of pancreatitis presenting to the emergency department with worsening abdominal pain x 24 hours. The patient reports that the pain is similar in location and quality to previous episodes of
pancreatitis but is more severe this time. Previously, he noted mild pain overnight but felt it was manageable. However, the pain escalated today, becoming significant enough to warrant medical attention. The patient describes sleeping poorly due to
the discomfort, and mentions intermittent restlessness during the night. Pain now periumbilical to epigastric and radiating towards his back.
The patient denies fevers, nausea, vomiting, diarrhea, and changes in stool color. Previous evaluations, including imaging, have not successfully identified the cause of his recurrent pancreatitis, as the usual causes such as alcohol use,
gallstones, and elevated triglycerides were ruled out. He recalls adhering to a low-fat diet as advised, with only slight deviations, and describes feeling distressed by the recurring pain which appears randomly. Efforts are ongoing to manage his
symptoms with analgesics; initial pain relief was noted after administration of medication at this facility.
SOCIAL DETERMINANTS AFFECTING HEALTH
The patient follows a low-fat diet strictly, with minor recent dietary deviations. The patient expresses significant stress regarding the recurring and undiagnosed nature of his pancreatitis episodes.
Past History
Past History
ED Past Medical History: CAD, GERD, HTN, Hypercholesterolemia, NIDDM, Psychiatric and Other (arely)
ED Past Surgical History: Cardiac (angioplasty) and Tonsilectomy
Social History
Tobacco: Former smoker
Alcohol: None
Drug: None
Personal:
Living: with family
Review of Systems
Review of Systems
All Other Systems: ROS reviewed and negative except as documented in HPI and ROS
Phy Exam
Physical Exam
Physical Exam:
GENERAL: Alert , initially was in considerable pain however improved following pain medication administration
EYE: clear conjunctiva b/l
HEAD: NCAT
ENT: o/p clr, mmm.
CARDIAC: Regular rate and rhythm .
LUNGS: Clear breath sounds bilaterally, no acute respiratory distress, no wheezes/rales/rhonchi
ABDOMEN: Soft, periumbilical tenderness, no r/g, no cvat
NEUROLOGICAL: Alert and oriented
SKIN: Warm and dry, skin intact.
MUSCULOSKELETAL: well perfused.
PSYCH: Normal and appropriate interaction.
Scores
Heart Failure Risk
Heart Failure Risk Score: Not Applicable
Heart Score for Chest Pain Patients
STEMI patient?: Not applicable
Withdrawal Assessment of Alcohol
Withdrawal Assessment Completed?: Not applicable
Course
Orders/Labs/Results
Orders:
Orders
12/20/24 17:59
CBC/With Diff [Complete Blood Count/With Diff] Urgent
12/20/24 18:36
0.9% Sodium Chloride 500 ml [Nss] 500 ml IV BOLUS
HYDROmorphone [Dilaudid] 0.5 mg IV NOW STA
12/20/24 18:55
Add On- LAB Urgent
Tests Added?: lipase
12/20/24 19:02
Comprehensive Metabolic Panel Urgent
Lipase Urgent
Comment: ADD ON
12/20/24 20:41
Admit/Transfer Patient As Directed
Co-Sign Provider:
Level of Care: Inpatient admission
Assign to:: Telemetry
Physician / Group: nany
Diagnosis: acute pancreatitis
Reason for Telemetry: Arrhythmia
Date to Stop Telemetry: 12/23/24
Time to Stop Telemetry: 11:00
Reason for Hospitalization: acute pancreatitis
Expected length of stay greater than two midnights?: Yes
ELOS- Estimated Length of Stay in days: 3
I certify the patient meets the requirements for IP care: Yes
PRN Pain Medication Management As Directed
May give lesser potent ordered pain med per pt: Yes
preference::
Protocol:: Medication orders for pain may be administered in a
manner that supports deferring to patient preference
when the pt is:
- Requesting an ordered lesser potent pain medication.
Least to most potent pain medications are defined
as: acetaminophen < NSAID < tramadol < opioids
(morphine, oxycodone, hydromorphone).
- Requesting a lesser dose of the same medication IF
ORDERED.
- Requesting a less intrusive route of administration
if both routes are prescribed by the provider (PO <
IV).
12/20/24 20:42
Code Status As Directed
Resuscitation Status: Full Code
12/23/24 11:00
DC Protocol for Telemetry ONCE
Abnormal Lab Results
12/20/24 12/20/24
17:59 19:02
RBC 4.69 L 10^6/uL
(4.70-6.10)
MPV 10.6 H fL
(7.4-10.4)
BUN 29 H mg/dl
(9-20)
Glucose 112 H mg/dl
(70-99)
Total Bilirubin 2.6 H mg/dl
(0.2-1.3)
AST 126 H U/L
(17-59)
ALT 81 H U/L
(0-50)
Alkaline Phosphatase 128 H U/L
(38-126)
Lipase > 4000 H* U/L
(23-300)
12/20/24 17:59
12/20/24 19:02
Vital Signs
Initial and Last Documented VS:
Initial Vital Signs
Pulse Resp Pulse Ox
63 15 95
12/20/24 17:54 12/20/24 17:54 12/20/24 17:54
Last Documented Vital Signs
Pulse Resp BP Pulse Ox
61 20 125/65 96
12/20/24 20:45 12/20/24 20:45 12/20/24 20:00 12/20/24 19:30
MDM/Problems Addressed
Differential Diagnosis Includes:
The Differential Diagnosis includes, in no particular order and is not limited to:
1. Recurrent pancreatitis
2. Chronic pancreatitis
3. Abdominal malignancy
4. Peptic ulcer disease
5. Gastroesophageal reflux disease
6. Hepatic or biliary disease
7. Small bowel obstruction
8. Mesenteric ischemia
9. Acute appendicitis
10. Diverticulitis
MDM/Problems Addressed:
- Await laboratory results to better understand the cause and to determine further management steps.
- Continue to provide pain relief medication as needed to maintain comfort.
- Strong consideration of hospital admission if labs indicate recurring pancreatitis or if pain persists.
- The patient is advised to notify the medical team if pain intensifies for prompt reassessment and additional analgesia.
- Imaging considered however patient did have a CT scan of his chest abdomen pelvis done in May 2024, again in November 2024 also having an abdominal MRI in November as well
Chronic conditions affecting care: Other (Previous bouts of pancreatitis)
*Pulse Oximetry
Patient hypoxic: no
Comment: 95%
*Critical Care Note
Total Time (30-74mins, 75-104mins- exclusive of procedures): Not Applicable
Data Reviewed
Review of Other/Old Records Reveals: Labs, Records and Radiology Studies
Patient Management
Discussion with other providers: Hospitalist
Escalation/DeEscalation of care consider admission/obs:
Patient's labs reveal his lipase level of greater than 4000. LFTs are also elevated. Patient's pain remains controlled with the IV Dilaudid. Hospitalist team notified and accepts for continued evaluation and treatment. Imaging was deferred to
hospitalist team as patient recently did have MRI and CT scan done a little over months ago which did not reveal any significant acute pathology
ED Attending Note
-
Portions of this chart may have been created with voice recognition software.� Occasional wrong word or��sound alike� substitutions may have occurred due to the inherent limitations of voice recognition software.
Discharge Plan
Departure
Patient Disposition: Admit
Date of Disposition: 12/20/24
Time of Disposition: 20:14
Presentation/result/management discussed w/ accepting MD/DO: Hospitalist
Discharge Problem:
Acute pancreatitis
Interventions
Interventions:
*Risk Screen - Suicide Last Done: 12/20/24 17:54
*General Assessment Last Done: 12/20/24 17:54
*Neglect/Abuse Screening Last Done: 12/20/24 17:54
YH-Hcdfav-Qppfwyvtau Assessment Last Done: 12/20/24 17:58
[2024-12-20 19:42] LABS: ALT (SGPT) 81 U/L (0-50); AST (SGOT) 126 U/L (17-59); Albumin 4.3 g/dl (3.5-5.0); Alkaline Phosphatase 128 U/L (38-126); Blood Urea Nitrogen 29 mg/dl (9-20); Calcium 9.1 mg/dl (8.4-10.2); Carbon Dioxide 26 mmol/L (22-30); Chloride 107 mmol/L (98-107); Estimated Creatinine Clearance 42 ml/min; Glucose 112 mg/dl (70-99); Potassium 3.8 mmol/L (3.5-5.1); Sodium 141 mmol/L (135-145); Total Bilirubin 2.6 mg/dl (0.2-1.3); Total Protein 7.1 g/dl (6.3-8.2); eGFR 54.85
[2024-12-20 20:00] VITALS: BP 125/65
[2024-12-20 20:09] LABS: Lipase > 4000 U/L (23-300)
--- NOTE | 2024-12-20 20:15 | HPS.HSE ---
Addendum entered and electronically signed by Jac Linares DO 12/20/24 21:22:
Patient seen and examined independently. Agree with findings and plan as set forth by REBEKAH Gregory.
Patient is an 84y M with PMH significant for A-Fib, HTN, DM-II and recurrent pancreatitis who presents to ED complaining of upper abdominal pain since last PM. Patient reports pain with no N/V. No fevers / chills. His symptoms are similar to
prior episodes of pancreatitis. He was last admitted here last month for similar symptoms. Extensive evaluation at that time revealed no clear etiology for his pancreatitis. He is followed by Dr. Rizvi as an outpatient.
Ass:
Acute / Recurrent Pancreatitis
DM-II
Benign Hypertension
Paroxysmal Atrial Fibrillation
ASCVD
GERD
YAS
Gilbert's Disease
Plan:
Admit for further evaluation and treatment.
NPO, IVFs, pain control / supportive care.
Follow for clinical improvement and advance diet as tolerated once pain improved.
GI evaluation for additional recommendations.
No additional studies ordered at this time given extensive evaluation(s) done November 2024.
Hold oral hypoglycemic agents. Would consider remaining off of Jardiance - though this is not classically associated with pancreatitis.
(He held this for one week after his last hospitalization - then resumed it on 11/21/24).
Continue other usual home PO medications.
Original Note:
Family Physician
-
Family Physician: NOT KNOW UNKNOWN - PT DOES
Chief Complaint
-
abdominal pain
History of Present Illness
84-year-old male with a history of pancreatitis, type DM, atrial fib, HTn, HLD, anxiety presented to us with right upper quadrant pain and mid abdominal pain since last night. the pain started last night. he ate oatmeal with banana this morning.
throughout the day, the pain progressively got worse and around dinner time it was excruciating pain. denied nausea, vomiting or diarrhea. denied fever, chills, chest pain. he was sob due to the pain. denied NEVAREZ, dizzy or syncope.denied dysuria or
hematuria.
since last year, this is the fourth time he is diagnosed with pancreatitis
patient as admitted here last month with pancreatitis. patient recieved dilaudid and fluids in ther ER admitting for further management.
Medical History
Past Medical History
Past Medical History: Reports Other
Additional Past Medical History:
CAD
osteoarthritics
htn
hld
type 2 DM
CKD
bundle branch block
rinaldi's esophagus
pancreatic cyst
gilbert syndrome
Past Surgical History: Reports Other
Additional Past Surgical History:
left knee surgery
right hip replacement
left hip replacement
Social History
Tobacco: Non-smoker
Alcohol: None
Drug: None
Personal:
Living: With Family
Family History
Family History: Not pertinent
Allergies / Home Medications
Allergies reflects when Allergies were last updated in [facility].
Home Medications with original date entered in [facility]
Allergy/Medication List:
Allergies
Allergy/AdvReac Type Severity Reaction Status Date / Time
Penicillins Allergy Rash as a Verified 05/24/24 07:06
child
Home Medications
duloxetine 20 mg capsule,delayed release 40 mg PO DAILY Pain 07/29/21
metformin 500 mg tablet 500 mg PO DAILY Diabetes 08/02/21
felodipine 10 mg tablet,extended release 24 hr 5 mg PO DAILY Blood Pressure 12/01/23
losartan 25 mg tablet 25 mg PO DAILY Blood Pressure 12/01/23
pantoprazole 40 mg tablet,delayed release 40 mg PO BID Gastrointestinal Issue 12/01/23
therapeutic multivitamin 1 tab PO DAILY Supplement 12/01/23
rivaroxaban 20 mg tablet (Xarelto) 20 mg PO QPM Blood Clot Prevention/Tx 05/24/24
Lactobac no.2-Bifidobac no.1-S. thermo 112.5 billion cell capsule (Visbiome) 1 cap PO DAILY Gastrointestinal Issue 11/09/24
atorvastatin 80 mg tablet (Lipitor) 80 mg PO HS High Cholesterol 11/09/24
calcium 315 mg (as citrate)-vitamin D3 6.25 mcg (250 unit) tablet (Citracal + Vitamin D Maximum) 1 tab PO DAILY Supplement 11/09/24
empagliflozin 10 mg tablet (Jardiance) 10 mg PO DAILY Diabetes 11/09/24
Held on 11/14/24. Instructions: Resume on 11/21/24.
latanoprost 0.005 % eye drops 1 drp ophthalmic (eye) HS 11/09/24
Review of Systems
-
Constitutional: Reports No Symptoms
EENT: Reports No Symptoms
Respiratory: Reports No Symptoms
Cardiac: Reports No Symptoms
Abdomen/GI: Reports Abdominal Pain
: Reports No Symptoms
Musculoskeletal: Reports No Symptoms
Skin: Reports No Symptoms
Neurological: Reports No Symptoms
Endocrine: Reports No Symptoms
Hematologic/Lymphatic: Reports No Symptoms
Psych: Reports No Symptoms
Physical Exam
Vital Signs
Vital Signs
Pulse Resp BP Pulse Ox
55 22 133/66 96
12/20/24 19:30 12/20/24 19:30 12/20/24 19:00 12/20/24 19:30
Physical Exam
General: Well Developed, Well Nourished and No Apparent Distress
HEENT: NormoCephalic, Moist mucous membranes and Atraumatic
Respiratory: Clear
Cardiac: S1/S2 and Regular Rhythm; No Murmur or Rub
GI: Soft, Non Tender, Non Distended and Normal Bowel Sounds; No Organomegaly
Rectal: Deferred by Provider
Musculoskeletal: No Clubbing, No Cyanosis and No Edema
Skin: No Rash
Neuro: AO x 3 and Nonfocal/grossly intact
Psych: Calm
Laboratory Results
-
12/20/24 17:59
12/20/24 19:02
Laboratory Results
Total Bilirubin 2.6 mg/dl (0.2-1.3) H 12/20/24 19:02
AST 126 U/L (17-59) H 12/20/24 19:02
ALT 81 U/L (0-50) H 12/20/24 19:02
Alkaline Phosphatase 128 U/L (38-126) H 12/20/24 19:02
Lipase > 4000 U/L (23-300) H* 12/20/24 19:02
Data Reviewed
-
CT Scan: Report Reviewed by me
Lab Data: Labs Reviewed by me
Impression/Plan
-
#recurrent pancreatitis
#transaminitis
-Lipase >4000
-NPO, fluids continued
-trend lipase
-GI consult
## Type 2 diabetes
-Hold metformin and Jardiance
-Accu-Cheks and sliding scale coverage
# Paroxysmal atrial fibrillation-continue Xarelto
# Coronary artery disease- ADMITTING INTERVIEWER of RCA w/ collaterals, 30% LM and 35% prox circ by cath 03/28/2016- Xarelto
# Hypertension-continue felodipine, losartan.
# Hyperlipidemia/atherosclerosis-hold statin
# Chronic arthritis-on duloxetine for pain
# GERD-Rinaldi's esophagus-peptic ulcer disease-PPI
# Gilbert's disease
# Sleep apnea-does not use CPAP
# Enlarged prostate gland
# DVT prophylaxis-Xarelto
# Full code
[2024-12-20 21:00] VITALS: BP 141/79
[2024-12-20 21:59] VITALS: BMI 26.0
[2024-12-20 21:59] LABS: Glucose - Point of Care 108 mg/dl (70-99)
[2024-12-20 22:00] VITALS: BP 150/79; BMI 26.0
--- NOTE | 2024-12-20 22:02 | PTCARENOTE ---
Pt received from ED via stretcher at 2140. Pt AAOx3, VSS, and able to ambulate into room with assistance. Pt receptive to room and call rashid. Pt bed in lowest position and call rashid within reach. Pt educated on importance of call rashid usage, pt
relays understanding and cooperation. Bed alarm placed and plugged in. Will continue with current plan of care.
[2024-12-20] MEDS: NSS 1000 IV (22:15)
[2024-12-20] MEDS: DILAUDID 1 MG IV (22:18)
[2024-12-20] MEDS: PROTONIX 40 MG PO (22:18)
[2024-12-20] MEDS: XARELTO 20 MG PO (22:18)
[2024-12-20] MEDS: XALATAN OPHTHALMIC SOLUTION 1 DROP OPHTH (22:30)
[2024-12-20 22:44] LABS: Triglycerides 91 mg/dl (10-149)
[2024-12-21 00:13] LABS: Glucose - Point of Care 120 mg/dl (70-99)
[2024-12-21] MEDS: NSS 1000 IV ×6 (02:05→22:56)
[2024-12-21 03:30] VITALS: BP 133/68
--- NOTE | 2024-12-21 04:18 | DOWNTIME ---
Addendum entered by Luly Piper RN 12/21/24 14:21:
Correction: Downtime was 12/21/2024 from 0100 to 12/21/2024 at 0415
Original Note:
There was a [employer] Downtime on 12/20/2024 from 0100 to 12/21/2024 at 0415. Downtime documentation of patient's care, including medication administrations, has been reconciled in the electronic record per guidelines. Refer to the
patient's paper chart under the miscellaneous tab to see printed paper medication records and downtime forms.
[2024-12-21 06:06] LABS: Glucose - Point of Care 92 mg/dl (70-99)
[2024-12-21 07:00] VITALS: BP 156/75
--- NOTE | 2024-12-21 07:08 | CON.GI ---
Addendum entered and electronically signed by Bridgett Fuentes MD 12/21/24 15:27:
The patient was seen and examined by me independently in collaboration with the nurse practitioner.
Past medical history/social history/medications/allergies/family history reviewed.
Lab data and imaging data reviewed.
84-year-old male past medical history as below presenting with fourth admission for recurrent pancreatitis. Initially had admission in November 2019 for possible gallstone pancreatitis. Underwent an EUS with pancreatic cyst and had post ERCP
pancreatitis. He then returned November 2023 with third episode of pancreatitis. This was thought to be either due to Jardiance versus pancreatic cyst. Now having abdominal pain with lipase 2300 which again seems consistent with pancreatitis. He did
recently resume Jardiance.
At this time, no need for cross-sectional imaging. If he does not improve in 72 hours, I would recommend cross-sectional imaging at that point. I will get an ultrasound tomorrow to evaluate his gallbladder as I do not see this done in the past.
His LFTs are mildly elevated, total bilirubin is elevated although all indirect. IgG4 checked in the past, calcium borderline low, triglycerides normal. Recommend IV fluids, clear liquid diet and advance as tolerated, hold Jardiance and discussed
with transformer repairer regarding other diabetic meds. I sent a message to Dr. Rizvi as he did mention seeing a pancreatic surgeon if he has another recurrence of pancreatitis.
Original Note:
Consultation
-
Date/Time Consultation Requested: 12/20/241999
Date/Time Consultation Performed: 12/21/24829
Requesting Provider: REBEKAH Domínguez
Performing Provider: REBEKAH Gracia, Christina Fuentes MD
Reason for Consultation: pancreatitis
Medical History
Chief Complaint / HPI
Chief Complaint: abdominal pain
History of Present Illness:
Patient is an 84-year-old male with past medical history of coronary artery disease, chronic kidney disease, hyperlipidemia, type 2 diabetes mellitus, essential hypertension, Rinaldi's esophagus, prior GI bleed with gastric ulcer, paroxysmal atrial
fibrillation on Xarelto and anxiety. He has history of idiopathic acute pancreatitis and cystic pancreatic lesions. He had admission in November 2023 with possible acute gallstone pancreatitis. MRCP was obtained and showed borderline dilation of the
common bile duct with gallbladder sludge noted. Also noted were scattered pancreatic cysts He clinically improved with resolution of his pain. Consideration of possible passage of CBD stone/sludge to explain his symptoms. Pain did not recur�and he
was discharged home to follow-up closely as an outpatient, with both GI and Cardiology as noted with new afib during admission with start of Eliquis then eventual change to Xarelto.
Pt then completed EUS to eval for sludge with concern for recent GB pancreatitis and follow up on cysts on 05/24/2024 which showed cystic lesion in the head of pancreas measuring 11 x 11 mm with echogenic lesion concerning for possible mural
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 After procedure pt has recurrent acute pancreatitis.� He had a short course of hospitalization
and managed conservatively and was discharged home.� He was seen in follow up with Dr. Rizvi in June. He was feeling improved and recommended 6 month follow up MRI. He returned 11/09-11/14 with recurrent 3rd episode pancreatitis. During that
admission he was noted with increased LFT's and lipase. Imaging during admission with noted CT with minimal fluid surrounding the gallbladder however the wall is thin and there is no cholelithiasis or biliary distention, b/l renal cysts, and DDD.
Follow up MRI with No convincing acute process in the abdomen. No convincing MR evidence for acute pancreatitis. Remonstration of pancreatic cystic lesions without suspicious features, similar to priors. Recommend follow-up MRI/MRCP abdomen without
and with gadolinium contrast in 2 years. Prior to last admission pt did add Jardiance which was held on discharge then resume 1 week later. With acute rise in LFT's with improvement there was also question of passage of CBD stone. He was seen in
follow up 12/[address] Rizvi. He was advised to avoid toxic exposure to pancreas and consider referral to pancreatic surgeon and continue followup for stable pancreatic cyst.
Pt states after admission with pain meds and IVF he was feeling improved. Pain was 10/10 on admission now 2/10. Pt denies fever, odynophagia, GERD, nausea, vomiting, diarrhea, constipation or rectal bleeding. Lab with normal WBC, bili
2.6, AST 126, ALT 81, alk phos 128 and lipase >4000.
Past Medical History
Past Medical History: CAD, GERD, HTN, Hypercholesterolemia, NIDDM and Other (paroxysmal atrial fibrillation, anxiety, CKD, Pancreatic cyst, barretts esophagus, gastric ulcer with prior GI bleed )
Past Surgical History: Orthopedic (Right hip replacement, Left knee surgery)
Social History
Tobacco: Former Smoker (Quit around 37years of age)
Alcohol: Other (heavy ETOH til age 37 )
Drug: None
Personal:
Living: With Family
Employment: Retired
Family History
Family History: CAD and Other ( brother with hx pancreatitis - pt unsure of cause )
Allergies / Home Medications
Allergy/AdvReac Type Severity Reaction Status Date / Time
Penicillins Allergy Rash as a Verified 05/24/24 07:06
child
�Medication �Instructions �Recorded
duloxetine 20 mg capsule,delayed 40 mg PO DAILY Pain 07/29/21
release
metformin 500 mg tablet 500 mg PO DAILY Diabetes 08/02/21
felodipine 10 mg tablet,extended 5 mg PO DAILY Blood Pressure 12/01/23
release 24 hr
losartan 25 mg tablet 25 mg PO DAILY Blood Pressure 12/01/23
pantoprazole 40 mg tablet,delayed 40 mg PO BID Gastrointestinal Issue 12/01/23
release
therapeutic multivitamin 1 tab PO DAILY Supplement 12/01/23
rivaroxaban 20 mg tablet (Xarelto) 20 mg PO QPM Blood Clot 05/24/24
Prevention/Tx
Lactobac no.2-Bifidobac no.1-S. 1 cap PO DAILY Gastrointestinal 11/09/24
thermo 112.5 billion cell capsule Issue
(Visbiome)
atorvastatin 80 mg tablet (Lipitor) 80 mg PO HS High Cholesterol 11/09/24
calcium 315 mg (as 1 tab PO DAILY Supplement 11/09/24
citrate)-vitamin D3 6.25 mcg (250
unit) tablet (Citracal + Vitamin D
Maximum)
empagliflozin 10 mg tablet 10 mg PO DAILY Diabetes 11/09/24
(Jardiance)
Held on 11/14/24.
Instructions: Resume on
11/21/24.
latanoprost 0.005 % eye drops 1 drp ophthalmic (eye) HS 11/09/24
Review of Systems
-
History Source: Patient
Constitutional: Reports Weight Loss (few lbs with last admission )
EENT: Reports No Symptoms
Cardiac: Reports No Symptoms
Abdomen/GI: Reports Abdominal Pain
: Reports Frequency
Musculoskeletal: Reports No Symptoms
Skin: Reports No Symptoms
Neurological: Reports No Symptoms
Endocrine: Reports No Symptoms
Hematologic/Lymphatic: Reports No Symptoms
Vital Signs
Temp Pulse Resp BP Pulse Ox
97.8 F 58 14 133/68 96
12/21/24 03:30 12/21/24 03:30 12/21/24 03:30 12/21/24 03:30 12/21/24 03:30
Physical Exam
Exam
General: Well Developed, Well Nourished and No Apparent Distress
HEENT: Normocephalic and Anicteric
Respiratory: Clear
Cardiac: Regular Rhythm
GI: Soft, Non Distended, Normal Bowel Sounds and Tender (mid abdomen )
Musculoskeletal: No Clubbing and No Cyanosis
Skin: Warm and Dry
Neuro: Awake, Alert and AO x 3
Psych: Calm
Results
WBC 10.2 10^3/uL (4.8-10.8) 12/20/24 17:59
Hgb 14.4 g/dL (13.0-18.0) 12/20/24 17:59
Hct 42.3 % (39.0-52.0) 12/20/24 17:59
MCV 90.2 fL (80.0-94.0) 12/20/24 17:59
Plt Count 216 10^3/uL (130-400) 12/20/24:59
Absolute Neuts (auto) 6.5 10^3/uL (1.4-6.5) 12/20/24 17:59
Sodium 141 mmol/L (135-145) 12/20/24 19:
Potassium 3.8 mmol/L (3.5-5.1) 12/20/24 19:
Chloride 107 mmol/L (98-107) 12/20/24 19:
Carbon Dioxide 26 mmol/L (22-30) 12/20/24 19:
BUN 29 mg/dl (9-20) H 12/20/24 19:
Creatinine 1.3 mg/dL (0.7-1.3) 12/20/24 19:
Calcium 9.1 mg/dl (8.4-10.2) 12/20/24 19:02
Total Bilirubin 2.6 mg/dl (0.2-1.3) H 12/20/24 19:02
AST 126 U/L (17-59) H 12/20/24 19:02
ALT 81 U/L (0-50) H 12/20/24 19:02
Alkaline Phosphatase 128 U/L (38-126) H 12/20/24 19:02
Lipase > 4000 U/L (23-300) H* 12/20/24 19:02
Diagnostic Image Results:
11/11/24 MR Abdomen W/o & W Contrast
No convincing acute process in the abdomen. No convincing MR evidence for acute pancreatitis.
Remonstration of pancreatic cystic lesions without suspicious features, similar to priors. Recommend follow-up MRI/MRCP abdomen without and with gadolinium contrast in 2 years per ACR criteria
11/09/24 CT Abd/Pel (IV only)-DH only
1. There is minimal fluid surrounding the gallbladder however the wall is thin and there is no cholelithiasis or biliary distention.
2. There are bilateral renal cysts much larger on the left
3. There is degenerative disc disease in the lower lumbar spine
05/24/24 CT Chest/abd/pel W Iv Cont
1. There is no evidence of pneumomediastinum
2. There is fluid surrounding the pancreas which suggests pancreatitis.
3. There is thickening along the proximal duodenum. This may be related to recent endoscopy.
MRI/MRCP on 01/2024 - no CBD stone, 13 mm cyst in the head, 18 mm cyst in the neck of panc which are stable/no sig increase in size
---12/02/2023 MRI/MRCP Abdomen: Borderline CBD dilatation without evidence of strictures or filling defects. Hydropic gallbladder with small amount of pericholecystic fluid without discrete gallstones noted. Redemonstration of scattered pancreatic
cystic lesions without suspicious features, slightly increased from prior exam 03/06/2023.� Recommend follow-up MRI/MRCP in 2 years per ACR criteria. Benign appearing renal cysts redemonstrated.
---03/08/2020 MR Abd: Bilateral renal cysts containing thin internal septations. No MRI evidence for thick enhancing internal septation or solid mural nodule in any of the cysts to suggest renal cell carcinoma. Mild bilateral renal cortical volume
loss. 1.7 cm and 1.2 cm cysts in the head of the pancreas containing thin internal septations. Both cysts appear to communicate with the main pancreatic duct. Neither cyst appears to have enlarged since 10/04/2018. Diagnostic possibilities are (1)
intraductal papillary mucinous neoplasm (IPMN) or (2) pancreatic pseudocyst. Small sliding-type hiatal hernia. Mild hepatomegaly.
MRI./MRCP on 10/2018 - several small cysts in head/neck, 14 mm in longest dimension
Prior GI Procedures:
EUS 05/2024 - no sludge in CBD, cyst in the head of pancreas measuring 11 x 11 mm communicating with PD, echogenic lesion concerning for possible mural nodule versus mucin wall, FNA performed. Second cystic lesion in the neck of pancreas measuring
15 x 11 mm septated, communicating with PD, 1 cc cystic aspirated for analysis.
Cytology -mucinous neoplasm, no HGD seen.
Fluid analysis -CEA 5699, amylase 11k, glucose 2.8,
Genetic mutation study - KRAS low clonality, GNAS -ve, statistically indolent
EGD: [facility] 01/2023 - Esophageal mucosal changes secondary to established
Rinaldi's disease. Biopsied.
- Erythematous mucosa in the antrum. Biopsied.
- Normal examined duodenum.
bx neg H pylori but intestinal metaplasia without dysplasia
EGD: [facility] 11/2022 - Z-line irregular, in the lower third of the
esophagus. Biopsied.
- Non-bleeding gastric ulcer with no stigmata of
bleeding. Biopsied.
- Normal examined duodenum.
bx neg H pylori but intestinal metaplasia without dysplasia
Colonoscopy: ---[facility] '6-8 years ago' [address]. Galo 'normal'.
Assessment / Plan
-
Patient is an 84-year-old male with past medical history of coronary artery disease, chronic kidney disease, hyperlipidemia, type 2 diabetes mellitus, essential hypertension, Rinaldi's esophagus, prior GI bleed with gastric ulcer, paroxysmal atrial
fibrillation on Xareto and anxiety. He has history of idiopathic acute pancreatitis and cystic pancreatic lesions. He had admission in November 2023 with possible acute gallstone pancreatitis. MRCP was obtained and showed borderline dilation of the
common bile duct with gallbladder sludge noted. Also noted were scattered pancreatic cysts He clinically improved with resolution of his pain. Consideration of possible passage of CBD stone/sludge to explain his symptoms. Pain did not recur�and he
was discharged home to follow-up closely as an outpatient, with both GI and Cardiology as noted with new afib during admission with start of Eliquis. Pt then completed EUS to eval for sludge with concern for recent GB pancreatitis and follow up on
cysts on 05/24/2024 which showed cystic lesion in the head of pancreas measuring 11 x 11 mm with echogenic lesion concerning for possible mural nodule versus mucin ball.� FNA was performed for further evaluation of this with noted mucinous
neoplasm w/o HGD, thus more likely to be a mucin ball. After procedure pt has recurrent acute pancreatitis.� He had a short course of hospitalization and managed conservatively and was discharged home.� He was seen in follow up with Dr. Rizvi in
June. He was feeling improved and recommended 6 month follow up MRI. He returned 11/09-11/14 with recurrent 3rd episode pancreatitis. During that admission he was noted with increased LFT's and lipase. Imaging during admission with noted CT
with minimal fluid surrounding the gallbladder however the wall is thin and there is no cholelithiasis or biliary distention, b/l renal cysts, and DDD. Follow up MRI with No convincing acute process in the abdomen. No convincing MR evidence for
acute pancreatitis. Remonstration of pancreatic cystic lesions without suspicious features, similar to priors. Recommend follow-up MRI/MRCP abdomen without and with gadolinium contrast in 2 years. Prior to last admission pt did add Jardiance which
was held on discharge but resumed 1 week later and decreased metformin dosing. With acute rise in LFT's with improvement there was also question of passage of CBD stone. He was seen in follow up 12/[address] Rizvi. He was advised to avoid toxic
exposure to pancreas and consider referral to pancreatic surgeon and continue followup for stable pancreatic cyst. He now presents with recurrent abdominal pain with rise in LFT's and lipase.
prior IGG4- 15, TG 91, calcium 9.1 -ETOH./tobacco use heavy til age 37 none since that time
no recurrent imaging this admission
-recurrent pancreatitis- now 4th episode
-recent admission 11/09-11/14 with 3rd episode pancreatitis
-hx cystic lesions -- per EUS cyst in the head of pancreas measuring 11 x 11 mm communicating with PD, echogenic lesion concerning for possible mural nodule versus mucin wall Second cystic lesion in the neck of pancreas measuring 15 x 11 mm
septated, communicating with PD- cytology -mucinous neoplasm
-chronic elevated bilirubin ? underlying Gilbert's
other med problems:
-CAD
-CKD
-Hyperlipidemia
-DM
-HTN
-rinaldi's esophagus
-afib on Xarelto
-anxiety
-brother with pancreatic issues
PLAN:
Etiology of pancreatitis related to known head of pancreatic cyst vs newly started Jardiance (initially stopped then restarted 1 week after admission) vs other-- Ct on admission without gallstones or ductal dilation
pt feeling much better today
agree with IVF 250ml/hr
trial clear diet advance as tolerated
pain control
trend labs- chronic bili elevation with prior normal D bili -- will recheck again may be
no imaging this admission - will review with Dr. Fuentes if needed with recent testing completed -- if held will need to consider if fever, leukocytosis, persistent LFT elevation or pain not improving
would hold Jardiance on discharge-- per up to date some post- marketing risk of pancreatitis and noted recurrence with starting
reviewed Dr. Rizvi's OP note-- consider eval with pancreatic surgeon if continued symptoms -- Dr. Bustillo did sent message to Dr. Rizvi to review with patient on his return for vacation
-
-
Thank you for consultation and allowing me to participate in the patient's care. Please call the data acquisition technician GI physician during the after hours with any questions or concerns.
[2024-12-21] MEDS: CYMBALTA DELAYED RELEASE 40 MG PO (07:53)
[2024-12-21] MEDS: COZAAR 25 MG PO (07:53)
[2024-12-21] MEDS: PROTONIX 40 MG PO ×2 (07:53→19:23)
[2024-12-21] MEDS: PLENDIL EXTENDED RELEASE 5 MG PO (07:54)
[2024-12-21 08:32] LABS: ALT (SGPT) 150 U/L (0-50); AST (SGOT) 141 U/L (17-59); Albumin 3.4 g/dl (3.5-5.0); Alkaline Phosphatase 114 U/L (38-126); Blood Urea Nitrogen 29 mg/dl (9-20); Calcium 8.2 mg/dl (8.4-10.2); Carbon Dioxide 27 mmol/L (22-30); Chloride 110 mmol/L (98-107); Estimated Creatinine Clearance 37 ml/min; Glucose 78 mg/dl (70-99); HDL Cholesterol 42 mg/dl; LDL Cholesterol, Calculated 44 mg/dl; Potassium 4.5 mmol/L (3.5-5.1); Sodium 144 mmol/L (135-145); Total Bilirubin 2.2 mg/dl (0.2-1.3); Total Cholesterol 99 mg/dl (50-199); Total Protein 5.9 g/dl (6.3-8.2); Triglyceride 65 mg/dl (10-149); Very Low Density Lipoprotein 13 mg/dl (0-30); eGFR 46.19
[2024-12-21 08:41] LABS: Lipase 2300 U/L (23-300)
[2024-12-21] MEDS: DILAUDID 1 MG IV (09:47)
--- NOTE | 2024-12-21 09:59 | W.PN.HOSP.TC ---
Today's Communication/Plan
-
see bold
Assessment / Plan
Assessment / Plan
84y M with PMH significant for A-Fib, HTN, DM-II and recurrent pancreatitis who presents to ED complaining of upper abdominal pain since last PM. Patient reports pain with no N/V. No fevers / chills. His symptoms are similar to prior episodes
of pancreatitis. He was last admitted here last month for similar symptoms. Extensive evaluation at that time revealed no clear etiology for his pancreatitis. He is followed by Dr. Rizvi as an outpatient.
#Recurrent pancreatitis
#Elevated LFTs
Appreciate GI input, etiology includes pancreatic cyst versus Jardiance
Recommend permanently discontinuing Jardiance
Continue IV fluids, check ultrasound of gallbladder
#Acute kidney injury
Hold losartan
IV fluids as above, trend creatinine
#Type 2 diabetes
Permanently discontinue Jardiance
Hold home metformin
Sliding scale insulin, Accu-Cheks
#Paroxysmal atrial fibrillation
Continue Xarelto
# Coronary artery disease
BAKER HEAD of RCA w/ collaterals, 30% LM and 35% prox circ by cath 03/28/2016- Xarelto
# Hypertension
Continue felodipine
Hold losartan due to JOSE
# Hyperlipidemia/atherosclerosis
Hold statin
# Chronic arthritis
Continue duloxetine
# GERD-Snell's esophagus-peptic ulcer disease
PPI
# Gilbert's disease
# Sleep apnea
Does not use CPAP
# Enlarged prostate gland
DVT prophylaxis�Xarelto
Full code
Total time spent to see the patient on the floor, examine the patient, review data and lab results, discuss treatment plan with patient, nursing staff around 39 minutes.
Physical Exam
General: No acute distress
HEENT: Normocephalic, Atraumatic, EOMI, MMM
Respiratory: Clear to Auscultation bilaterally
Cardiac: Normal S1/S2, Regular Rate and Rhythm
GI: Soft, tender at the epigastrium, normal Bowel Sounds
Extremities: No Clubbing, Cyanosis, or Edema
Neuro: Nonfocal/Grossly Intact
Psych: Calm, Cooperative
Anticipated Discharge: 24 - 48 hours
Subjective/Interval History
-
Date of Service: December 21, 2024
Patient reports improvement in his abdominal pain. He is tolerating clears. No chest pain, no shortness of breath. No fever, no vomiting.
Objective Data
-
Labs:
Laboratory Results
12/21/24
06:36
Sodium 144
Potassium 4.5
Chloride 110 H
Carbon Dioxide 27
BUN 29 H
Creatinine 1.5 H
Glucose 78
Calcium 8.2 L
Total Bilirubin 2.2 H
AST 141 H
ALT 150 H
Alkaline Phosphatase 114
Vital Signs:
Vital Signs
Temp Pulse Resp BP Pulse Ox
98.7 F 54 18 156/75 97
12/21/24 07:00 12/21/24 07:00 12/21/24 07:00 12/21/24 07:00 12/21/24 07:00
I&O
12/20/24 12/21/24 12/22/24
06:59 06:59 06:59
Intake Total 2250 / 2250
Output Total 325 / 325 300 / 300
Balance 1925 / 1925 -300 / -300
--- NOTE | 2024-12-21 10:56 | CM ---
Initial assessment completed. Patient is a 84-year-old male with a history of pancreatitis, type DM, atrial fib, HTn, HLD, anxiety presented to us with right upper quadrant pain and mid abdominal pain.
Patient resides w/ spouse in a single story apartment, no steps. Independent w/ the use of a cane, independent w/ ADLs. Denies SNF hx, prev known to [facility] in the past.
Address, point of contact and insurance verified
PCP: Sen Hines
Pharmacy: [facility]
Plan: Anticipate home, will watch for any d/c needs
[2024-12-21 11:13] LABS: Glycohemoglobin (HgbA1c) 6.4 % (4.0-5.6)
[2024-12-21 11:18] LABS: Direct Bilirubin 0.4 mg/dl (0.0-0.4)
[2024-12-21 11:32] LABS: Glucose - Point of Care 126 mg/dl (70-99)
[2024-12-21 11:39] VITALS: BP 141/75
[2024-12-21 15:33] VITALS: BP 141/70
[2024-12-21 17:09] LABS: Glucose - Point of Care 97 mg/dl (70-99)
[2024-12-21 19:40] VITALS: BP 143/74
[2024-12-21] MEDS: XARELTO 20 MG PO (21:11)
[2024-12-21] MEDS: XALATAN OPHTHALMIC SOLUTION 1 DROP OPHTH (21:11)
[2024-12-21 21:40] LABS: Glucose - Point of Care 95 mg/dl (70-99)
[2024-12-21 23:30] VITALS: BP 133/76
[2024-12-22] VITALS (7 sets, daily range): BP systolic 128–162; BP diastolic 66–82
[2024-12-22] MEDS: NSS 1000 IV ×2 (02:45→06:04)
[2024-12-22 07:03] LABS: ALT (SGPT) 93 U/L (0-50); AST (SGOT) 57 U/L (17-59); Albumin 3.2 g/dl (3.5-5.0); Alkaline Phosphatase 105 U/L (38-126); Blood Urea Nitrogen 18 mg/dl (9-20); Calcium 8.3 mg/dl (8.4-10.2); Carbon Dioxide 25 mmol/L (22-30); Chloride 112 mmol/L (98-107); Direct Bilirubin 0.2 mg/dl (0.0-0.4); Estimated Creatinine Clearance 46 ml/min; Glucose 86 mg/dl (70-99); Lipase 703 U/L (23-300); Potassium 3.8 mmol/L (3.5-5.1); Sodium 141 mmol/L (135-145); Total Bilirubin 2.5 mg/dl (0.2-1.3); Total Protein 5.7 g/dl (6.3-8.2); eGFR > 60.00
[2024-12-22 07:05] LABS: Hematocrit 35.1 % (39.0-52.0); Hemoglobin 11.7 g/dL (13.0-18.0); Mean Corp Hgb Conc. 33.3 g/dL (33.0-37.0); Mean Corpuscular Hgb 30.2 pg (27.0-31.0); Mean Corpuscular Volume 90.7 fL (80.0-94.0); Mean Platelet Volume 11.1 fL (7.4-10.4); Platelet Count 141 10^3/uL (130-400); Red Blood Cell Count 3.87 10^6/uL (4.70-6.10); Red Cell Dist. Width 13.6 % (11.5-14.5)
[2024-12-22] MEDS: CYMBALTA DELAYED RELEASE 40 MG PO (07:40)
[2024-12-22] MEDS: PLENDIL EXTENDED RELEASE 5 MG PO (07:41)
[2024-12-22] MEDS: PROTONIX 40 MG PO ×2 (07:41→19:39)
--- NOTE | 2024-12-22 08:35 | W.PN.HOSP.TC ---
Today's Communication/Plan
-
Advance to low-fat/low-cholesterol diet
Discontinue IV fluids after current bag
Probable discharge tomorrow
Assessment / Plan
Assessment / Plan
84y M with PMH significant for A-Fib, HTN, DM-II and recurrent pancreatitis who presents to ED complaining of upper abdominal pain since last PM. Patient reports pain with no N/V. No fevers / chills. His symptoms are similar to prior episodes
of pancreatitis. He was last admitted here last month for similar symptoms. Extensive evaluation at that time revealed no clear etiology for his pancreatitis. He is followed by Dr. Rizvi as an outpatient.
#Recurrent pancreatitis
#Elevated LFTs
Appreciate GI input, etiology includes pancreatic cyst versus Jardiance
Recommend permanently discontinuing Jardiance
Gallbladder ultrasound showed pancreatic cyst, dilated common bile duct unchanged from 2023 ultrasound, right hepatic lobe lesion likely hemangioma
Advance to low-fat diet, discontinue IV fluids after current bag
#Acute kidney injury
Hold losartan
Resolved, discontinue IV fluids after current bag
#Type 2 diabetes
Permanently discontinue Jardiance
Hold home metformin
Sliding scale insulin, Accu-Cheks
#Paroxysmal atrial fibrillation
Continue Xarelto
# Coronary artery disease
ROLL FINISHER of RCA w/ collaterals, 30% LM and 35% prox circ by cath 03/28/2016- Xarelto
# Hypertension
Continue felodipine
Resume losartan
# Hyperlipidemia/atherosclerosis
Hold statin
# Chronic arthritis
Continue duloxetine
# GERD-Snell's esophagus-peptic ulcer disease
PPI
# Gilbert's disease
# Sleep apnea
Does not use CPAP
# Enlarged prostate gland
DVT prophylaxis�Xarelto
Full code
Updated at bedside 12/22
Total time spent to see the patient on the floor, examine the patient, review data and lab results, discuss treatment plan with patient, nursing staff around 50 minutes.
Physical Exam
General: No acute distress
HEENT: Normocephalic, Atraumatic, EOMI, MMM
Respiratory: Clear to Auscultation bilaterally
Cardiac: Normal S1/S2, Regular Rate and Rhythm
GI: Soft, nontender, nondistended, normal Bowel Sounds
Extremities: No Clubbing, Cyanosis, or Edema
Neuro: Nonfocal/Grossly Intact
Psych: Calm, Cooperative
Anticipated Discharge: Within 24 hours
Subjective/Interval History
-
Date of Service: December 22, 2024
Patient reports his abdominal pain resolved at 2 PM yesterday afternoon. Denies nausea, denies vomiting. No chest pain, no shortness of breath. No fever.
Objective Data
-
Labs:
Laboratory Results
12/22/24
06:22
WBC 9.0
Hgb 11.7 L
Hct 35.1 L
Plt Count 141 D
Sodium 141
Potassium 3.8
Chloride 112 H
Carbon Dioxide 25
BUN 18
Creatinine 1.2
Glucose 86
Calcium 8.3 L
Total Bilirubin 2.5 H
AST 57
ALT 93 H
Alkaline Phosphatase 105
Vital Signs:
Vital Signs
Temp Pulse Resp BP Pulse Ox
98.6 F 58 17 144/75 96
12/22/24 07:30 12/22/24 07:30 12/22/24 07:30 12/22/24 07:30 12/22/24 07:30
I&O
12/21/24 12/22/24 12/23/24
06:59 06:59 06:59
Intake Total 2250 / 2250 3960 / 3960
Output Total 325 / 325 4250 / 4250 500 / 500
Balance 1925 / 1925 -290 / -290 -500 / -500
[2024-12-22 10:07] LABS: Glucose - Point of Care 85 mg/dl (70-99)
--- NOTE | 2024-12-22 14:08 | W.PN.GI.CBS2 ---
Today's Communication / Plan
-
advance diet, follow up dr jiménez outpatient
Assessment / Plan
-
84-year-old male past medical history as below presenting with fourth admission for recurrent pancreatitis. Initially had admission in November 2019 for possible gallstone pancreatitis. Underwent an EUS with pancreatic cyst and had post ERCP
pancreatitis. He then returned November 2023 with third episode of pancreatitis. This was thought to be either due to Jardiance versus pancreatic cyst. Now having abdominal pain with lipase 2300 which again seems consistent with pancreatitis. He did
recently resume Jardiance.
Improving - will advance diet to low fat.
D/w hospitalist.
D/w patient and in detail. As per Dr. Jiménez recommendation will be hold Jardiance and I have sent a msg to Dr. Jiménez re: possible referral to pancreatic surgeon. All questions answered.
If pt tolerates diet ok GI POV for discharge in AM.
Subjective
Subjective
Date of Service: December 22, 2024
pain improving
Objective
Data Reviewed
Laboratory Data:
Laboratory Results
12/22/24 06:22
12/22/24 06:22
Laboratory Results
Total Bilirubin 2.5 mg/dl (0.2-1.3) H 12/22/24 06:22
AST 57 U/L (17-59) 12/22/24 06:22
ALT 93 U/L (0-50) H 12/22/24 06:22
Alkaline Phosphatase 105 U/L (38-126) 12/22/24 06:22
Lipase 703 U/L (23-300) H 12/22/24 06:22
Vital Signs and I&O:
Vital Signs
Temp Pulse Resp BP Pulse Ox
98.4 F 67 20 128/66 96
12/22/24 11:35 12/22/24 11:35 12/22/24 11:35 12/22/24 11:35 12/22/24 11:35
I&O
12/21/24 12/22/24 12/23/24
06:59 06:59 06:59
Intake Total 2250 / 2250 3960 / 3960 960 / 960
Output Total 325 / 325 4250 / 4250 900 / 900
Balance 1925 / 192 -290 / -290 60 / 60
Physical Exam
Physical Exam
GI: Non Distended and Non Tender
[2024-12-22] MEDS: NSS IV (16:22)
[2024-12-22 16:40] LABS: Glucose - Point of Care 118 mg/dl (70-99)
[2024-12-22] MEDS: XARELTO 20 MG PO (17:00)
[2024-12-22] MEDS: XALATAN OPHTHALMIC SOLUTION OPHTH (21:05)
[2024-12-22 21:52] LABS: Glucose - Point of Care 176 mg/dl (70-99)
[2024-12-23 03:34] VITALS: BP 156/76
[2024-12-23 07:20] VITALS: BP 155/86
[2024-12-23 07:20] LABS: ALT (SGPT) 81 U/L (0-50); AST (SGOT) 43 U/L (17-59); Albumin 3.8 g/dl (3.5-5.0); Alkaline Phosphatase 109 U/L (38-126); Blood Urea Nitrogen 21 mg/dl (9-20); Calcium 8.9 mg/dl (8.4-10.2); Carbon Dioxide 29 mmol/L (22-30); Chloride 108 mmol/L (98-107); Estimated Creatinine Clearance 42 ml/min; Glucose 114 mg/dl (70-99); Lipase 481 U/L (23-300); Sodium 143 mmol/L (135-145); Total Bilirubin 2.1 mg/dl (0.2-1.3); Total Protein 6.6 g/dl (6.3-8.2); eGFR 54.85
[2024-12-23 08:03] LABS: Glucose - Point of Care 104 mg/dl (70-99)
--- NOTE | 2024-12-23 09:19 | W.PN.HOSP.TC ---
Today's Communication/Plan
-
Discharge today
Assessment / Plan
Assessment / Plan
84y M with PMH significant for A-Fib, HTN, DM-II and recurrent pancreatitis who presents to ED complaining of upper abdominal pain since last PM. Patient reports pain with no N/V. No fevers / chills. His symptoms are similar to prior episodes
of pancreatitis. He was last admitted here last month for similar symptoms. Extensive evaluation at that time revealed no clear etiology for his pancreatitis. He is followed by Dr. Rizvi as an outpatient.
#Recurrent pancreatitis
#Elevated LFTs
Appreciate GI input, etiology includes pancreatic cyst versus Jardiance
GI recommends permanently discontinuing Jardiance
Gallbladder ultrasound showed pancreatic cyst, dilated common bile duct unchanged from 2023 ultrasound, right hepatic lobe lesion likely hemangioma
Pancreatitis resolved, patient is tolerating a low-fat diet
Medically stable for discharge today
Follow-up with PCP in 1 week, and GI in the office in 2-3 weeks
#Stage II-III chronic renal insufficiency (acute kidney injury ruled out
Creatinine stable
#Type 2 diabetes
Permanently discontinue Jardiance
Hold home metformin
Sliding scale insulin, Accu-Cheks
#Paroxysmal atrial fibrillation
Continue Xarelto
# Coronary artery disease
CASING CLEANER of RCA w/ collaterals, 30% LM and 35% prox circ by cath 03/28/2016- Xarelto
# Hypertension
Continue felodipine
Resumed losartan
# Hyperlipidemia/atherosclerosis
Hold statin
# Chronic arthritis
Continue duloxetine
# GERD-Snell's esophagus-peptic ulcer disease
PPI
# Gilbert's disease
# Sleep apnea
Does not use CPAP
# Enlarged prostate gland
DVT prophylaxis�Xarelto
Full code
Updated at bedside 12/22
Physical Exam
General: No acute distress
HEENT: Normocephalic, Atraumatic, EOMI, MMM
Respiratory: Clear to Auscultation bilaterally
Cardiac: Normal S1/S2, Regular Rate and Rhythm
GI: Soft, nontender, nondistended, normal Bowel Sounds
Extremities: No Clubbing, Cyanosis, or Edema
Neuro: Nonfocal/Grossly Intact
Psych: Calm, Cooperative
Anticipated Discharge: Today
Subjective/Interval History
-
Date of Service: December 23, 2024
Patient has not had any recurrence of abdominal pain. He is tolerating his low-fat diet. No fever, no vomiting. No chest pain, no shortness of breath. He is eager for discharge today.
Objective Data
-
Labs:
Laboratory Results
12/23/24
06:29
Sodium 143
Potassium 4.0
Chloride 108 H
Carbon Dioxide 29
BUN 21 H
Creatinine 1.3
Glucose 114 H
Calcium 8.9
Total Bilirubin 2.1 H
AST 43
ALT 81 H
Alkaline Phosphatase 109
Vital Signs:
Vital Signs
Temp Pulse Resp BP Pulse Ox
98.3 F 67 20 155/86 97
12/23/24 07:20 12/23/24 07:20 12/23/24 07:20 12/23/24 07:20 12/23/24 07:20
I&O
12/22/24 12/23/24 12/24/24
06:59 06:59 06:59
Intake Total 3960 / 3960 0 / 1880
Output Total 4250 / 4250 1899 / 1899
Balance -290 / -290 -20 / -20
[2024-12-23] MEDS: CYMBALTA DELAYED RELEASE 40 MG PO (09:36)
[2024-12-23] MEDS: PROTONIX 40 MG PO (09:37)
[2024-12-23] MEDS: PLENDIL EXTENDED RELEASE 5 MG PO (09:37)
[2024-12-23] MEDS: COZAAR 25 MG PO (09:38)
--- NOTE | 2024-12-23 10:55 | W.DCSUMMARY ---
Discharge Summary
Discharge Data
Date of Admission: 12/20/24
Date of Discharge: 12/23/24
-
Pending Results: No
Hospital Course
Discharge diagnosis:
Recurrent pancreatitis
Elevated liver function test
Pancreatic cysts
Stage II-III chronic renal sufficiency
Type 2 diabetes
Paroxysmal atrial fibrillation on Xarelto
Coronary artery disease
Essential hypertension
Bilateral renal cysts
Hepatic lesion suggestive of hemangioma
Consults: GI
Right upper quadrant ultrasound:
No gallstones are identified. Gallbladder wall thickness top normal 3 mm.
Bilateral benign cystic renal lesions
Small hypoechoic lesion in pancreatic body. This correlates with cystic lesion shown by MRI. Patient is known to have additional cystic pancreatic lesions, per the previous MRI. Follow-up MRI in 2 years has been recommended to reevaluate the cystic
lesions.
Common bile duct is mildly distended at 9 mm; this is unchanged compared with the 2023 ultrasound. MRI's performed since that ultrasound showed no mechanical obstruction of common bile duct.
Hyperechoic lesion in the right hepatic lobe measuring 7 mm in diameter. No corresponding finding on previous imaging studies. This is probably a benign finding, such as hemangioma. Follow-up ultrasound in 6 months recommended for reevaluation.
Hospital course:
84-year-old male with a past medical history of pancreatitis, diabetes on Jardiance, pancreatic cysts, coronary artery disease, and hypertension who was admitted for another episode of pancreatitis. Patient was seen in conjunction with GI, who
suspects his pancreatitis may be secondary to either Jardiance or his pancreatic cysts. GI recommends permanent discontinuation of Jardiance. Patient was treated with IV fluids, bowel rest, and pain control. After several days, patient's pain
resolved. He tolerated a low-fat diet. He is medically stable and cleared by GI for discharge. Again he has been counseled to permanently discontinue Jardiance. He needs to follow-up with GI in the office in 2-3 weeks for further management of
his pancreatic cysts.
Disposition: Home self-care
Discharge planning: Required 36-minute
Discharge Plan
-
Patient Disposition: Home (Routine Discharge)
Discharge Diagnosis/Procedures: Acute pancreatitis, elevated liver function test, pancreatic cysts
Condition: Good
Diet: Low Fat and Low Cholesterol
Activity: As tolerated
Driving Restrictions: As prior to admission
Activity Restrictions/Additional Instructions:
Dr. Rizvi recommends permanently discontinuing Jardiance.
Please follow-up with your primary care doctor in 1 week, and Dr. Rizvi when he returns.
Referrals:
Christian Rizvi MD [Active, Gastroenterology] - in two to three weeks
Sen Hines MD [Family Provider, Family Practice] - in less than 1 week
Prescriptions:
Continued
duloxetine 20 MG capsule,delayed release(DR/EC)
40 mg PO DAILY
metformin 500 MG tablet
500 mg PO DAILY
therapeutic multivitamin Tablet
1 tab PO DAILY
losartan 25 mg Tablet
25 mg PO DAILY
pantoprazole 40 mg tablet,delayed release (DR/EC)
40 mg PO BID
felodipine 10 MG tablet extended release 24 hr
5 mg PO DAILY
Xarelto 20 mg Tablet
20 mg PO QPM
atorvastatin [Lipitor] 80 mg Tablet
80 mg PO HS
calcium citrate-vitamin D3 [Citracal + D Maximum] 315 mg-6.25 mcg (250 unit) Tablet
1 tab PO DAILY
Visbiome 112.5 billion cell Capsule
1 cap PO DAILY
latanoprost 0.005 % Drops
1 drp OPHTHALMIC (EYE) HS
Rx Instructions:
Left
Discontinued
Jardiance 10 mg Tablet
10 mg PO DAILY
Discharge Orders:
Discharge Patient (As Directed); Ordered 12/23/24
Ordered By: Kevin Deleon
Discharge Date and Time
Discharge Date/Time: 12/23/24 13:25
Print Language: MICRONESIAN
--- NOTE | 2024-12-23 11:08 | CM ---
Patient stable for d/c today
Met w/ patient bedside, agreeable to d/c. IMM verbally reviewed, copy provided, copy on chart
Spouse will transport home
No CM needs identified at this time
Plan: Home, no needs
[2024-12-23 11:13] LABS: Glucose - Point of Care 133 mg/dl (70-99)
--- NOTE | 2024-12-23 12:42 | PTCARENOTE ---
Reviewed pt dc paperwork with pt and , copy provided. Tele previously removed, iv removed. Pt eating lunch and then will be escorted by transport to waiting in car.
[2024-12-23 12:45] VITALS: BP 130/68
--- NOTE | 2024-12-23 14:46 | PN.CDI ---
CDI
- -
CDI:
Physician Documentation Request
Admit Date: 12/20/24 20:52
Dear Doctor Do,
Patient admitted for management of recurrent pancreatitis.
Progress notes include a diagnosis of JOSE
Creatinine results:
Laboratory Tests
12/20/24 12/21/24 12/22/24
19:02 06:36 06:22
Creatinine 1.3 1.5 H 1.2
12/23/24
06:29
Creatinine 1.3
Criteria for JOSE*
1 Increase in serum creatinine by > or = to 0.3 mg/dL (> or = to 26.5 micromol/L) within 48 hours, OR
2 Increase in serum creatinine to > or = to 1.5 times baseline, which is known or presumed to have occurred within 7 days, OR
3 Urine volume < 0.5 nL/kg/hour for six hours
Based on the above information and the recognized standard for JOSE could you please verify this diagnoses is still accurate and reflective of the patient�s condition to ensure quality of the medical record.
Please clarify in the Progress Notes:
�JOSE is/was present and is a clinical diagnosis based on (please include this additional support in the medical record)
�After study JOSE has been ruled out
�Other
Use of terms such as suspected, likely, concern for, or probable (associated with a specific diagnosis that is being evaluated, monitored, or treated as if it exists) are acceptable and can be coded in the inpatient setting, when documented at the
time of discharge.
Thank you,
Vira Blankenship RN, BSN
CDI Specialist
tiger text
Please use your independent medical judgment in providing your response.
== END 2024-12-23 13:25 | disposition home or self-care (01) | DRG 439 ==
LOC: 4 WEST ACU 20:52
PROVIDERS: Nurse Practitioner Adult Health; Registered Nurse; ADMITTING PHYSICIAN Hospitalist; ATTENDING PHYSICIAN Family Medicine; CONSULT PHYSICIAN Internal Medicine Gastroenterology; EMERGENCY PHYSICIAN Emergency Medicine; FAMILY PHYSICIAN Family Medicine
DX: K85.90 Acute pancreatitis without necrosis or infection, unspecified (principal); K86.2 Cyst of pancreas; K86.1 Other chronic pancreatitis; E11.22 Type 2 diabetes mellitus with diabetic chronic kidney disease; E78.00 Pure hypercholesterolemia, unspecified; I12.9 Hypertensive chronic kidney disease with stage 1 through stage 4 chronic kidney disease, or unspecified chronic kidney disease; I25.10 Atherosclerotic heart disease of native coronary artery without angina pectoris; I48.0 Paroxysmal atrial fibrillation; G47.33 Obstructive sleep apnea (adult) (pediatric); M19.90 Unspecified osteoarthritis, unspecified site; N40.0 Benign prostatic hyperplasia without lower urinary tract symptoms; F41.9 Anxiety disorder, unspecified; N18.30 Chronic kidney disease, stage 3 unspecified; E80.4 Gilbert syndrome; N28.1 Cyst of kidney, acquired; K21.9 Gastro-esophageal reflux disease without esophagitis; I45.4 Nonspecific intraventricular block; K22.70 Barrett's esophagus without dysplasia; Z96.643 Presence of artificial hip joint, bilateral; Z98.61 Coronary angioplasty status; Z87.891 Personal history of nicotine dependence; Z88.0 Allergy status to penicillin; Z79.01 Long term (current) use of anticoagulants; Z79.84 Long term (current) use of oral hypoglycemic drugs
CPT/HCPCS: 76700; 80053; 80061; 82248; 82962; 83036; 83690; 84478; 85025; 85027; 96361; 96374; 99284

== ENCOUNTER → 2025-03-07 08:25 | Outpatient (REF) | payer MEDICARE, SELFPAY | LOC: MRI 3T 08:25 | PROVIDERS: ATTENDING PHYSICIAN Internal Medicine Gastroenterology; FAMILY PHYSICIAN Family Medicine; REFERRING PHYSICIAN Internal Medicine | DX: N28.1 Cyst of kidney, acquired (principal); K86.2 Cyst of pancreas | CPT/HCPCS: 74183; A9575 ==